=== PATIENT | male | born 1955 | race Two or more races ===

== ENCOUNTER 2024-08-14 07:52 | Emergency (ER) | payer MEDICARE, MEDICAID, SELFPAY ==
--- NOTE | 2024-08-14 07:56 | EKG_ITS ---
[facility] Test Date: 2024-08-14 Pat Name: LARRY BAE Department: Room: - Gender: Male Office Mover: : 1955 Requested By: Don Watson Order Number: [id number] Reading MD: Dno Watson Measurements Intervals [place] Rate: 73 P: 66 LA: 179 QRS: 38 QRSD: 98 T: 44 QT: 390 QTc: 432 Interpretive Statements SINUS RHYTHM LOW QRS VOLTAGE IN EXTREMITY LEADS [QRS DEFLECTION < 0.5 mV IN LIMB LEADS] Compared to ECG 06/10/2023 14:49:50 Low QRS voltage now present /store/S0/[id number].pdf
--- NOTE | 2024-08-14 07:56 | XR_ITS ---
Examination: CTA carotids with intravenous contrast CTA brain, head with intravenous contrast. 2-D sagittal, coronal reconstructions. 3-D reconstructions. Exam date and time: October 14, 2024 0818 hours INDICATIONS: Stroke alert, onset focal neurologic deficit today CTDI: vol (mGy) 27.3 DLP: (mGycm) 448 Technique: Multiple CTA axial brain, head carotid images post intravenous contrast injection 75 cc, Isovue-370. 2-D sagittal, coronal reconstructions. 3-D reconstructions, 3-D post processing including vascular maximum intensity projection images. Low dose protocols were performed. One or more of the following dose reduction techniques were used; automated exposure control, adjustment of the mA and/or KV according to patient size, use of iterative reconstruction technique. Findings: COPD with areas of airspace destruction in the right upper lobe Mild calcification carotid bifurcations but no significant common carotid carotid bifurcation or internal carotid artery stenoses Dominant left vertebral artery with no critical stenoses Large vessel occlusion distal M1 segment left middle cerebral artery with decreased filling of left middle cerebral artery trifurcation vessels IMPRESSION: No significant neck arterial stenoses Large vessel occlusion distal M1 segment left middle cerebral artery
--- NOTE | 2024-08-14 07:56 | XR_ITS ---
Examination: CT brain head without contrast. 2-D sagittal coronal reconstructions Date and time of exam:August 14, 2024 0801 hrs. Indications: Stroke alert, onset focal neurologic deficit this morning CTDI: vol (mGy):52.8 DLP: (mGycm):1123 Technique: Multiple CT axial sections of the brain have been obtained, 5 mm slice thickness. Contrast has not been administered. 2-D sagittal, coronal reconstructions have been obtained Low dose protocols were performed. One or more of the following dose reduction techniques were used; automated exposure control, adjustment of the mA and/or KV according to patient size, use of iterative reconstruction technique. Findings: No significant ventricular enlargement. There is continual patient motion on this study Old infarct left occipital lobe unchanged compared with September 14, 2023 Ventricles are not enlarged No gross hemorrhage, no gross mass effect Impression: Study is severely limited secondary to patient motion No gross hemorrhage No gross mass effect Recommend repeating this study
--- NOTE | 2024-08-14 07:59 | EDNOTE_ITS ---
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 Stroke alert was called. Per EMS patient woke up today and was altered, nursing staff at [facility] noticed his eyes were fixeted to the left and they called EMS. Patient is nonverbal, baseline is unknown. Last well known 7am. No other history is available. Related Data Home Medications ?Medication ?Instructions ?Recorded ?Confirmed donepezil 5 mg tablet 5 mg PO HS 09/15/23 09/15/23 amitriptyline 25 mg tablet 25 mg PO QDAY 09/16/2310/05 amlodipine 10 mg tablet 10 mg PO QDAY 09/16/2309/15 atorvastatin 80 mg tablet 80 mg PO QDAY 09/16/2309/15 lisinopril 5 mg tablet 5 mg PO QDAY 09/16/23 memantine 10 mg tablet 10 mg PO BID 09/16/23 tamsulosin 0.4 mg capsule 0.4 mg PO QDAY 09/16/2310/05 Previous Rx's ?Medication ?Instructions ?Recorded aspirin 81 mg tablet,delayed 81 mg PO QDAY 30 days #30 tabs 06/12/23 release Allergies Allergy/AdvReac Type Severity Reaction Status Date / Time No Known Allergies Allergy Verified 06/10/23 14:15 Review of Systems Review of Systems ROS Unobtainable: unobtainable due to mental status ED Exam Narrative Physical exam: Gen: Well-developed elderly male. HEENT: NCAT, PERRLA, eyes are deviated to the left, MMM, anicteric conjunctivae. CVS: normal S1 and S2. RRR. No M/R/G. Resp: decreased BS B/L. No rhonchi, rales, crackles or wheezing. Abd: soft, non-tender, non-distended. BS+ in all 4 quadrants. MSK: Good ROM in BUE & BLE. No edema or rash. Neuro: limited exam due to mental status. Does not follow commands or communicate. Course Course Course Narrative: STROKE ALERT called, teleneuro consulted. Given aspirin 300 mg WY and Keppra 1.5g IV per teleneuro recs. Head CT showed limited exam due to motion, no gross hemorrhage or mass effect. CTA showed LVO distal M1 segment left MCA. Initiated transfer for neurosurgical eval due to LVO. Patient was accepted to [facility]. Quality Measures Suspected type of Stroke: Acute Ischemic Last known well (date): 08/14/24 Last known well (time): 07:00 Tenecteplase given: Reason(s) TPA not given: Unable to determine eligibility (no per teleneuro) not given stroke Orders Category Date Time Status Bedside Blood Glucose NOW Care 08/14/24 07:56 Active Bedside COVID-19 Antigen Test NOW Care 08/14/24 09:51 Active COVID-19 Screening Questionnaire NOW Care 08/14/24 09:51 Completed Talent Acquisition Relationship Manager NOW Care 08/14/24 07:56 Active Continuous Pulse Oximetry NOW Care 08/14/24 07:56 Completed EKG (ED ONLY) *Do not use* NOW Care 08/14/24 07:56 Completed Vogt [Urinary Catheter] QS Care 08/14/24 10:10 Active Vogt to Stinnett Routine Care 08/14/24 09:52 Ordered In and Out Catheter NEEDED Care 08/14/24 07:56 Active Insert IV NOW Care 08/14/24 07:56 Active NIH Stroke Scale now Care 08/14/24 07:56 Active NPO NOW Care 08/14/24 07:56 Active Neuro Check ONCE Care 08/14/24 07:56 Active Nurse Swallow Screen x1 Care 08/14/24 07:56 Active Consult to Neurology / Tele-Neurology Routine Cons 08/14/24 07:56 Active Transfer to another facility [Transfer/Discharge] Stat Discharge 08/14/24 11:[address] angio stroke protocol Stat Exams 08/14/24 07:[address] stroke protocol Stat Exams 08/14/24 07:56 Completed EKG (ED Only) Stat Exams 08/14/24 07:56 Draft CBC Stat Lab 08/14/24 08:05 Completed Comprehensive Metabolic Panel Stat Lab 08/14/24 08:05 Completed Drug Screen,Urine Stat Lab 08/14/24 10:11 Completed Magnesium Stat Lab 08/14/24 08:05 Completed Partial Thromboplastin Time Stat Lab 08/14/24 08:05 Completed Prothrombin Time with INR Stat Lab 08/14/24 08:05 Completed Troponin I Stat Lab 08/14/24 08:05 Completed Urinalysis Stat Lab 08/14/24 10:13 Completed Urine Culture Stat Lab 08/14/24 10:11 Received Aspirin Supp Med 08/14/24 08:11 Discontinued 300 mg WY X1 ONE Ondansetron Inj [Zofran Inj] Med 08/14/24 07:56 Active 4 mg IV Q4HR PRN levETIRAcetam INJ [Keppra Inj] Med 08/14/24 08:11 Discontinued 1,500 mg IVP X1 ONE Oxygen Delivery NOW RT 08/14/24 07:56 Active Vital Signs Vital signs: Vital Signs Pulse Rate 78 08/14/24 08:24 Respiratory Rate 18 08/14/24 08:24 [facility] Patient data External records reviewed:: [facility] previous records and EMS form Clinical information provided by:: EMS Social determinants that could affect healthcare access:: none Patient has the following chronic illnesses:: 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 Medications Medications considered but not ordered:: Tenecteplase, heparin gtt Medication administrations:: Medication Administration History Ondansetron HCl (Ondansetron Inj 2 Mg/Ml Inj 2 Ml) 4 mg IV Q4HR PRN PRN Reason: NAUSEA OR VOMITING Stop: 09/13/24 07:55 Discontinued Medications Aspirin (Aspirin 300 Mg Supp) 300 mg WY X1 ONE Stop: 08/14/24 08:12 Last Admin: 08/14/24 09:05 Dose: 300 mg Documented By: BD Levetiracetam (Levetiracetam Inj 100 Mg/Ml Vial 5ml) 1,500 mg IVP X1 ONE Stop: 08/14/24 08:12 Last Admin: 08/14/24 09:07 Dose: 1,500 mg Documented By: BD Aspirin 300 mg WY, Keppra 1.5g IV. Consultations Consultation(s) initiated? (list below): Yes Consultation #1 (Physician, Specialty, Details): Teleneurology, CVA. Diagnosis Differential Diagnosis ED Complaint MDM: hemorrhagic stroke, ICH, seizure Most likely diagnosis given after review of the tests above:: Ischemic stroke Admission Indicated Admission indicated?: indicated Explain why admission is indicated or not indicated:: Patient needs higher level of care with neurosurgery. Admission Request Was there a request for admission?: No Disposition Plan Disposition Plan: Transfer Medical Decision Making Differential Diagnosis Differential Diagnosis: hemorrhagic stroke, ICH, seizure Lab Data 08/14/24 08:05 08/14/24 08:05 Labs: Lab Results 08/14/24 08/14/24 08/14/24 Range/Units 08:05 10:11 10:13 WBC 11.4 H (3.8-10.6) Thou/mm3 RBC 4.62 (4.50-5.90) Miln/mm3 Hgb 13.7 (13.5-16.0) g/dL Hct 42.3 (41.0-53.0) % MCV 92 (80-100) fL MCH 29.7 (25.0-35.0) pg MCHC 32.4 (31.0-37.0) g/dl RDW Std Deviation 55.2 H (35.1-43.9) fL Plt Count 219 (140-440) Thou/mm3 Neut % (Auto) 54 (37-80) % Lymph % (Auto) 35 (10-50) % Alexander % (Auto) 7 (0-12) % Eos % (Auto) 4 (0-10) % Baso % (Auto) 0 (0-2.5) % Neut # (Auto) 6.1 (1.8-7.7) Thou/mm3 Lymph # (Auto) 4.0 (1.0-4.8) Thou/mm3 Alexander # (Auto) 0.8 (0.0-0.8) Thou/mm3 Eos # (Auto) 0.4 (0.0-0.5) Thou/mm3 Baso # (Auto) 0.0 (0.0-0.2) Thou/mm3 Immature Gran # (Auto) 0.03 H (0.00-0.00) Thou/mm3 Absolute Nucleated RBC 0.00 (0.00-0.00) Thou/mm3 Immature Gran % 0 (0-0) % Nucleated RBC % 0 (0) /100 WBC PT 11.4 (9.0-12.2) Seconds INR 1.0 (0.9-1.3) APTT 29.4 (22.0-36.0) Seconds Sodium 142 (136-145) mMol/L Potassium 4.9 (3.4-5.1) mMol/L Chloride 112 H (98-107) mMol/L Carbon Dioxide 23.0 (20.0-31.0) mMol/L Anion Gap 7 (7-16) BUN 18 (9-23) mg/dL Creatinine 1.2 (0.6-1.3) mg/dL Estim Creat Clear Calc Not Performed. eGFR > 60 (60 - ) See Note BUN/Creatinine Ratio 15 (12-20) Ratio Glucose 85 (74-106) mg/dL Calculated Osmolality 284 (275-295) Calcium 9.5 (8.3-10.6) mg/dL Corrected Calcium 9.5 (8.5-10.1) mg/dL Magnesium 2.1 (1.6-2.6) mg/dL Total Bilirubin 0.9 (0.3-1.2) mg/dL AST 16 (0-34) U/L ALT 19 (10-49) U/L Alkaline Phosphatase 101 (46-116) U/L Troponin I < 0.020 (0.0-0.045) ng/mL Total Protein 7.1 (5.7-8.2) gm/dL Albumin 4.4 (3.4-4.8) gm/dL Globulin 2.7 (2.3-3.5) gm/dL Albumin/Globulin Ratio 1.6 (1.2-2.2) Ur Collection Type Clean Catch Urine Color Lt-Yellow (Lt Yel-Yel) Urine Clarity Clear (Clear/Hazy) Urine pH 6.0 (5.0-7.0) Ur Specific Stinnett 1.049 H (1.001-1.035) Urine Protein Negative (Neg - Trace) Urine Glucose (UA) Negative (Negative) Urine Ketones Negative (Negative) Urine Blood Negative (Negative) Urine Nitrite Negative (Negative) Urine Bilirubin Negative (Negative) Urine Urobilinogen (Auto) Negative (0.0-1.0) mg/dL Ur Leukocyte Esterase Negative (Negative) Urine RBC 3 (0-3) /hpf Urine WBC 1 (0-5) /hpf Ur Squamous Epith Cells 0 (0-5) /hpf Urine Bacteria None (None) Urine Opiates Screen Negative (Negative) Urine Fentanyl Screen Negative (Negative) Ur Barbiturates Screen Negative (Negative) U Amphetamin/Meth Scrn Negative (Negative) U Benzodiazepines Scrn Negative (Negative) U Cocaine Metab Screen Negative (Negative) U Marijuana (THC) Screen Negative (Negative) Discharge Plan Plan Patient Disposition: [facility] Pt Being Transferred to: Other-Specify in comment Service Needed for Transfer: Neurosurgery Disposition Comment: Needs neurosurgery eval due to LVO. Patient condition on transfer: Benefits outweigh risks Prescriptions/Referrals Prescriptions/Med Rec: No Action aspirin 81 mg Tablet,Delayed Release (Dr/Ec) 81 mg PO QDAY 30 Days Qty: 30 1RF donepezil 5 mg tablet 5 mg PO HS Patient Comments: TAKE 1 TABLET BY MOUTH EVERY DAY AT BEDTIME atorvastatin 80 mg tablet 80 mg PO QDAY Patient Comments: TAKE 1 TABLET BY MOUTH AT BEDTIME amitriptyline 25 mg tablet 25 mg PO QDAY Patient Comments: TAKE 1 TABLET BY MOUTH EVERY DAY AT BEDTIME tamsulosin 0.4 mg capsule 0.4 mg PO QDAY Patient Comments: TAKE 1 CAPSULE BY MOUTH WITH DINNER amlodipine 10 mg Tablet 10 mg PO QDAY lisinopril 5 mg Tablet 5 mg PO QDAY memantine 10 mg tablet 10 mg PO BID Patient Comments: TAKE 1 TABLET BY MOUTH TWICE DAILY Referrals: Nida Cooney MD [Primary Care Provider] - In 1 week Problem List Clinical Impression: Acute CVA (cerebrovascular accident) Patient/Caregiver Discharge Instructions Print Language: Setswana Stand Alone Forms: Sindy Award Info., Patient Portal Info Letter
--- NOTE | 2024-08-14 08:05 | PD.TNEURO ---
Tele Neuro Consultation Consultation Date 08/14/24 Consultation Narrative [facility] Tele[facility] Patient Name:???LARRY BAE Date of :???1955 Identification Number:??? Date of Service:???08/14/2024 07:49:38 Diagnosis:?G93.41 - Encephalopathy Metabolic ?R41.89 - Unresponsive Impression: ?altered mental status/unresponsiveness with intermittent left gaze deviation; possible acute ischemic stroke vs nonconvulsive seizure (in the setting of left temporal lobe encephalomalacia) +/- acute toxic or metabolic or infectious encephalopathy ? ?CTA pending ?load with aspirin 300 mg MD x1 as patient cannot swallow safely ?load with keppra 1.5 g IV x1 ?allow permissive HTN for first 24 hours then slowly and gradually goal normotension thereafter ?cqohx-petyauqvm-epqoejhfed workup ?admit for further workup and management ?MRI brain when able ?EEG to eval for asymmetry or interictal activity ?continue to monitor on telemetry ?echo ?labs for risk factor stratification (lipid panel, HbA1c, TSH with free T4) ?PT/OT/speech ? ?All questions were answered to the best of my ability. Discussed plan with ED team (including ED provider) who are all in agreement with plan. ? Sign Out: ? Discussed with Emergency Department Provider Metrics: Last Known Well: 08/14/2024 07:00:00 Dispatch Time: 08/14/2024 07:49:38 Arrival Time: 08/14/2024 07:52:00 Initial Response Time: 08/14/2024 07:51:17Symptoms: unresponsive. Initial patient interaction: 08/14/2024 08:03:56 NIHSS Assessment Completed: 08/14/2024 08:08:44Patient is not a candidate for Thrombolytic. Thrombolytic Medical Decision: 08/14/2024 08:09:44Patient was not deemed candidate for Thrombolytic because of following reasons: Care-team unable to determine eligibility. . Imaging was personally reviewed. CTH shows encephalomalacia in the left medial temporal lobe/occipital lobe as well as diffuse atrophy and small vessel ischemic disease but is negative for bleed or early ischemic changes. Primary Provider Notified of Diagnostic Impression and Management Plan on: 08/14/2024 08:10:14 History of Present Illness:Patient is a 69 year old Male. Patient was brought by EMS for symptoms of unresponsive. 69 yo man with a history of dementia, prior ischemic strokes (most recently in 05/2024) with residual right-sided deficits, hypertension, hyperlipidemia, alcohol use disorder, who presents to the ED via EMS with altered mental status/unresponsiveness. Symptoms noted at 0700 when he collapsed per report (unable to confirm with SNF). Ambulates with a walker at baseline. ? Past Medical History: ?Hypertension ?Hyperlipidemia ?Stroke unable to obtain due to:?? Patient Is Obtunded/ Comatose Medications: Anticoagulant use:??Unknown Antiplatelet use:?Yes?aspirin 81 mg Reviewed EMR for current medications Other Medications Pertinent To Assessment Include: atorvastatin ?amitriptyline ?lisinopril ?Flomax Allergies:? Reviewed Allergies Unable To Obtain Due To:?Patient Is Obtunded/ Comatose Social History: Unable To Obtain Due To Patient Status :?Patient Is Obtunded/ Comatose Family History: Family History Cannot Be Obtained Because:Patient Is Obtunded/ Comatose ROS :?ROS Cannot Be Obtained Because:? Patient Is Obtunded/ Comatose Past Surgical History: Past Surgical History Cannot Be Obtained Because: Patient Is Obtunded/ Comatose There Is No Surgical History Contributory To Today?s Visit ? Examination: BP(164/98),?Pulse(63),?Blood Glucose(84) 1A: Level of Consciousness - Movements to Pain?+ 2 1B: Ask Month and Age - Could Not Answer Either Question Correctly?+ 2 1C: Blink Eyes & Squeeze Hands - Performs 0 Tasks?+ 2 2: Test Horizontal Extraocular Movements - Forced Gaze Palsy: Cannot Be Overcome?+ 2 3: Test Visual Hernandes - Complete Hemianopia?+ 2 4: Test Facial Palsy (Use Grimace if Obtunded) - Normal symmetry?+ 0 5A: Test Left Arm Motor Drift - Drift, hits bed?+ 2 5B: Test Right Arm Motor Drift - No Effort Against [employer]?+ 3 6A: Test Left Leg Motor Drift - No Effort Against [employer]?+ 3 6B: Test Right Leg Motor Drift - No Effort Against [employer]?+ 3 7: Test Limb Ataxia (FNF/Heel-John) - Does Not Understand?+ 0 8: Test Sensation - Mild-Moderate Loss: Can Sense Being Touched?+ 1 9: Test Language/Aphasia - Mute/Global Aphasia: No Usable Speech/Auditory Comprehension?+ 3 10: Test Dysarthria - Mute/Anarthric?+ 2 11: Test Extinction/Inattention - No abnormality?+ 0 NIHSS Score:?27 NIHSS Free Text :?mute. does not follow commands. no blink to threat on the right. +blink to threat on the left. initially no gaze deviation with eyes midline. after CT head, he developed a left gaze deviation with head version to the left. Pre-Morbid Modified Santa Scale:3 Points = Moderate disability; requiring some help, but able to walk without assistance Spoke with :?Dr. Watson This consult was conducted in real time using interactive audio and video technology. Patient was informed of the technology being used for this visit and agreed to proceed. Patient located in hospital and provider located at home/office setting. Patient is being evaluated for possible acute neurologic impairment and high probability of imminent or life-threatening deterioration. I spent total of 36 minutes providing care to this patient, including time for face to face visit via telemedicine, review of medical records, imaging studies and discussion of findings with providers, the patient and/or family. Dr Cyril Roe [facility] For Inpatient follow-up with [facility] physician please call [facility] at . As we are not an outpatient service for any post hospital discharge needs please contact the hospital for assistance. If you have any questions for the [facility] physicians or need to reconsult for clinical or diagnostic changes please contact us via [facility] at .
[2024-08-14 08:24] VITALS: PULSE 78; RESP 100; RESP 18
[2024-08-14 08:28] LABS: Basophils % (Auto) 0 % (0-2.5); Eosinophils # (Auto) 0.4 Thou/mm3 (0.0-0.5); Eosinophils % (Auto) 4 % (0-10); Hematocrit 42.3 % (41.0-53.0); Hemoglobin 13.7 g/dL (13.5-16.0); Immature Granulocytes % (Auto) 0 % (0-0); Immature Granulocytes Auto 0.03 Thou/mm3 (0.00-0.00); Lymphocytes % (Auto) 35 % (10-50); Mean Corpuscular HGB Conc 32.4 g/dl (31.0-37.0); Mean Corpuscular Hemoglobin 29.7 pg (25.0-35.0); Mean Corpuscular Volume 92 fL (80-100); Monocytes # (Auto) 0.8 Thou/mm3 (0.0-0.8); Monocytes % (Auto) 7 % (0-12); Neutrophils # (Auto) 6.1 Thou/mm3 (1.8-7.7); Neutrophils % (Auto) 54 % (37-80); Nucleated Red Blood Cell % 0 /100 WBC (0); Platelet Count 219 Thou/mm3 (140-440); RDW Standard Deviation 55.2 fL (35.1-43.9); Red Blood Count 4.62 Miln/mm3 (4.50-5.90); White Blood Count 11.4 Thou/mm3 (3.8-10.6)
[2024-08-14 08:31] VITALS: PULSE 64; PULSE 69; RESP 18; O2SAT 98; BMI 21.1
[2024-08-14 08:32] VITALS: BP 125/84; PULSE 77; RESP 15; TEMP 36.4; O2SAT 98
--- NOTE | 2024-08-14 08:35 | PC.NURSE ---
PT DAUGHTERHELEN CALLED TO ASK ABOUT STATUS SHE SAID SHE THINKS HE HAD ANOTHER STROKE ADVISED THAT HE IS BACK FROM [place] AND WE ARE READY FOR THE REPORT. SHE STATED OK. SHE ASKED IF HE WILL BE IN ER FOR AWHILE ADVISED WE ARE WAITING FOR THE PROVIDER TO REVIEW AT THE MOMENT.
[2024-08-14 08:44] LABS: Partial Thromboplastin Time 29.4 Seconds (22.0-36.0); Prothrombin Time 11.4 Seconds (9.0-12.2)
[2024-08-14 08:50] LABS: Alanine Aminotransferase 19 U/L (10-49); Albumin, Serum 4.4 gm/dL (3.4-4.8); Albumin/Globulin Ratio 1.6 (1.2-2.2); Alkaline Phosphatase 101 U/L (46-116); Anion Gap 7 (7-16); Aspartate Amino Transferase 16 U/L (0-34); BUN/Creatinine Ratio 15 Ratio (12-20); Bilirubin,Total 0.9 mg/dL (0.3-1.2); Blood Urea Nitrogen 18 mg/dL (9-23); Calcium 9.5 mg/dL (8.3-10.6); Calcium (Corrected) 9.5 mg/dL (8.5-10.1); Chloride 112 mMol/L (98-107); Creatinine (Component) 1.2 mg/dL (0.6-1.3); Globulin 2.7 gm/dL (2.3-3.5); Glucose 85 mg/dL (74-106); Magnesium 2.1 mg/dL (1.6-2.6); Osmolality,Calculated 284 (275-295); Potassium 4.9 mMol/L (3.4-5.1); Sodium 142 mMol/L (136-145); Total Protein 7.1 gm/dL (5.7-8.2); Troponin I < 0.020 ng/mL (0.0-0.045); eGFR > 60 See Note
--- NOTE | 2024-08-14 08:54 | PC.NURSE ---
[facility] PT HAS HX; STROKE HTN, RIGHT SIDE DEFICIT, PT AMBULATES WITH WALKER. PER EMS GSC 11. UPON ASSESSING PT HE HAS A DEVIATION TO THE LEFT. PT IS AWAKE AND ALERT BUT UNABLE TO ANSWER QUESTIONS. STROKE ALERT WAS INITIATED IN ROUTE AT 0746.
[2024-08-14] MEDS: ASPIRIN 300 MG SUPP PR (09:05)
[2024-08-14] MEDS: levETIRAcetam INJ 100 MG/ML VIAL 5ML 1500 MG IVP (09:07)
[2024-08-14 10:00] VITALS: BP 111/69; PULSE 61; RESP 11; TEMP 37; O2SAT 97
--- NOTE | 2024-08-14 10:07 | PC.NURSE ---
OK PER PROVIDER TO D/C Q115 STEPHEN CHECKS
--- NOTE | 2024-08-14 10:08 | PC.NURSE ---
UNABLE TO DO COVID SCREENING PT IS NOT ABLE TO ANSWER QUESTIONS. BEDSIDE COVID COMPLETED
[2024-08-14 10:34] LABS: Collection Type, Urine Clean Catch; Squamous Epithelial Cell,Urine 0 /hpf (0-5)
[2024-08-14 10:45] LABS: Amphetamine/Methamp Scrn,U Negative (Negative); Barbiturate Screen,Urine Negative (Negative); Benzodiazepines Screen,Urine Negative (Negative); Benzoylecgonine Screen, Ur Negative (Negative); Fentanyl Screen,Urine Negative (Negative); Opiate Screen,Urine Negative (Negative); THC Screen,Urine Negative (Negative)
[2024-08-14 10:53] LABS: Bilirubin,Urine Negative (Negative); Blood,Urine Negative (Negative); Clarity,Urine Clear (Clear/Hazy); Color,Urine Lt-Yellow (Lt Yel-Yel); Glucose, Urine Negative (Negative); Ketones,Urine Negative (Negative); Leukocyte Esterase,Urine Negative (Negative); Nitrite,Urine Negative (Negative); Protein,Urine Negative (Neg - Trace); RBC,Urine 3 /hpf (0-3); Specific Gravity,Urine 1.049 (1.001-1.035); Urobilinogen,Urine Negative mg/dL (0.0-1.0); WBC,Urine 1 /hpf (0-5)
[2024-08-14 11:00] VITALS: BP 128/71; PULSE 67; RESP 11; TEMP 36.9; O2SAT 98
--- NOTE | 2024-08-14 11:16 | PC.NURSE ---
CT ANGIO SHOWING LVO AND PT'S HOB PLACED FLAT AT THIS TIME
--- NOTE | 2024-08-14 11:22 | PC.CC ---
Addendum entered by Mayelin Rodriguez RN 08/14/24 12:48: 1230- all paperwork given to Haul Driver Chester 1226-stat transfer initiated all paperwork signed, chart printed 1206- Lnadon from [facility] called and accepted patient to [facility] under Dr. Shrestha, report to be called to [phone] 1145-filled out all paperwork, called patients daughter Leida and got consent for transfer with second nurse Ivon Marcelino 1130- called for disk to be made Original Note: 1117- Spoke to Landon at [facility] to facilitate transfer to [facility], face sheet faxed, images pushed 1116-Made aware by Charge Nurse Citlalli that patient needs to be stat transferred for Large Vessel Occlusion of the distal M1 segment Left Middle Cerebral Artery
--- NOTE | 2024-08-14 11:45 | PC.NURSE ---
SHAR FROM [facility] GAVE REPORT WILL CALL BACK
--- NOTE | 2024-08-14 13:08 | PC.NURSE ---
SPOKE WITH LONNIE AT [facility] TO GIVE UPDATE OF PT
== END 2024-08-14 12:43 | disposition short-term general hospital (02) ==
PROVIDERS: Student in an Organized Health Care Education/Training Program; Emergency Provider Emergency Medicine; PCP Hospitalist
DX: I63.9 Cerebral infarction, unspecified (principal); I67.82 Cerebral ischemia; G93.89 Other specified disorders of brain; G93.41 Metabolic encephalopathy; R40.20 Unspecified coma; R29.727 NIHSS score 27; I69.344 Monoplegia of lower limb following cerebral infarction affecting left non-dominant side; I10 Essential (primary) hypertension; F10.10 Alcohol abuse, uncomplicated; E78.5 Hyperlipidemia, unspecified; F03.90 Unspecified dementia, unspecified severity, without behavioral disturbance, psychotic disturbance, mood disturbance, and anxiety; Z95.820 Peripheral vascular angioplasty status with implants and grafts
CPT/HCPCS: 51702; 36415; 70450; 70496; 70498; 80053; 80307; 81001; 83735; 84484; 85025; 85610; 85730; 87086; 87811; 93005; 96374; 99285; A4649; J1953; Q9967; A9270

== ENCOUNTER 2024-10-08 19:26 | Emergency (ER) | payer MEDICARE, MEDICAID, SELFPAY ==
[2024-10-08 19:34] VITALS: BMI 21.7
[2024-10-08 19:37] VITALS: BP 148/94; PULSE 75; RESP 16; TEMP 36.6; O2SAT 97
--- NOTE | 2024-10-08 20:03 | XR_ITS ---
Examination: Abdomen AP 2 views Technique: AP portable supine abdomen, 2 views Exam date and time: October 08, 2024 at 2034 hours INDICATIONS: Gastrostomy tube came out and was replaced FINDINGS: Opacification of the gastrostomy tube contrast in the stomach No abnormal extravasation of contrast IMPRESSION: Gastrostomy tube satisfactory position
--- NOTE | 2024-10-08 20:04 | PD.EDADULT ---
ED General RME/HPI General Chief complaint: General Adult/Misc Complain Stated complaint: GASTRIC TUBE CAME OUT Time Seen by Provider: 10/08/24 20:04 Arrival date/time: 10/08/24 19:26 CC: G-tube pulled out HPI patient presents to the ER via EMS who reports stable vital signs. The patient is aphasic secondary CVA, awake and tracking. Related Data Home Medications ?Medication ?Instructions ?Recorded ?Confirmed donepezil 5 mg tablet 5 mg PO HS 09/15/23 09/15/23 amitriptyline 25 mg tablet 25 mg PO QDAY 09/16/23 09/16/23 amlodipine 10 mg tablet 10 mg PO QDAY 09/16/23 09/16/23 atorvastatin 80 mg tablet 80 mg PO QDAY 09/16/23 09/16/23 lisinopril 5 mg tablet 5 mg PO QDAY 09/16/23 09/16/23 memantine 10 mg tablet 10 mg PO BID 09/16/23 09/16/23 tamsulosin 0.4 mg capsule 0.4 mg PO QDAY 09/16/23 09/16/23 Previous Rx's ?Medication ?Instructions ?Recorded aspirin 81 mg tablet,delayed 81 mg PO QDAY 30 days #30 tabs 06/12/23 release Allergies Allergy/AdvReac Type Severity Reaction Status Date / Time No Known Allergies Allergy Verified 10/08/24 19:28 Review of Systems Review of Systems ROS Unobtainable: unobtainable due to mental status Past Medical History Past Medical History NEUROLOGIC: Positive Neurological Disorders, Cerebrovascular Accident, Transient Ischemic Attacks (TIA) and Dementia CARDIAC: Positive Cardiac Disorders, Peripheral Vascular Disease, Hypercholesterolemia and Hypertension; Negative Congestive Heart Failure RESPIRATORY: Negative Chronic Obstructive Pulmonary Disease (COPD) GASTROINTESTINAL: Positive Gastroesophageal Reflux Disease; Negative Gastrointestinal Disorders GENITOURINARY: Negative Genitourinary Disorders or Renal Disease MUSCULOSKELETAL: Negative Musculoskeletal Disorders ENDOCRINE: Negative Endocrine Disorders, Diabetes Mellitus Type 1 or Diabetes Mellitus Type 2 HEMATOLOGIC: Negative Blood Disorders PSYCHO/SOCIAL: Positive Psychiatric Problems OTHER HISTORY: Positive Hospitalization and Falls; Negative Autoimmune Disease, Down Syndrome, Developmental Delay, Shingles, Anesthesia Reactions, MRSA, VRSA, Vancomycin-Resistant Enterococci, Clostridium Difficile or Cancer Family History FAMILY HISTORY: Negative Family Psychiatric Problems, Family Respiratory Disorders, Family Cardiac Disorders, Family Gastrointestinal Problems, Family Cancer, Family Surgery or Family Anesthesia Reaction Surgical History SURGICAL: Negative Cardiac Surgery, Endocrine Surgery, Thyroidectomy, Ear Surgery, Abdominal Surgery, Nephrectomy, Joint Replacement, Neurologic Surgery, Brain Shunt, Mastectomy or Vasectomy Social History SMOKING STATUS: Unknown if ever smoked SECOND HAND EXPOSURE: No ED Exam Narrative Physical exam: [General: Appears not in any acute distress Head normocephalic HEENT: Eyes pupils are PERRLA EOMs are intact tracking, all other subsystems of HEENT are within acceptable limits Neck is supple Chest equal chest rise Respiratory: Clear to auscultation no wheezes crackles or rubs CV: Rate rhythm is regular no murmurs rubs or clicks Abdomen flat, soft, central superior stoma oozing a small amount of blood. Skin: Abdominal G-tube stoma somewhat bloody no surrounding erythema or edema otherwise skin is intact no petechiae rash induration ulceration or crepitus Extremities: Left arm grossly retracted secondary to CVA. Neuro: Awake alert, tracking with eyes Course Quality Measures none Orders Category Date Time Status XR abdomen 1V Stat Exams 10/08/24 20:03 Completed Vital Signs Vital signs: Vital Signs Temperature 97.9 F 10/08/24 19:37 Pulse Rate 75 10/08/24 19:37 Respiratory Rate 16 10/08/24 19:37 Blood Pressure 148/94 H 10/08/24 19:37 Pulse Oximetry (%) 97 10/08/24 19:37 Oxygen Delivery Method Room Air 10/08/24 19:37 Procedures -ED Procedure Comment 16. Silicone Vogt catheter placed in the stoma without complication. Placement confirmed via Gastrografin abdominal x-ray. Discharge Plan Plan Patient Disposition: HOME (Self Care) Patient condition on transfer: Stable Prescriptions/Referrals Prescriptions/Med Rec: No Action aspirin 81 mg Tablet,Delayed Release (Dr/Ec) 81 mg PO QDAY 30 Days Qty: 30 1RF donepezil 5 mg tablet 5 mg PO HS Patient Comments: TAKE 1 TABLET BY MOUTH EVERY DAY AT BEDTIME atorvastatin 80 mg tablet 80 mg PO QDAY Patient Comments: TAKE 1 TABLET BY MOUTH AT BEDTIME amitriptyline 25 mg tablet 25 mg PO QDAY Patient Comments: TAKE 1 TABLET BY MOUTH EVERY DAY AT BEDTIME tamsulosin 0.4 mg capsule 0.4 mg PO QDAY Patient Comments: TAKE 1 CAPSULE BY MOUTH WITH DINNER amlodipine 10 mg Tablet 10 mg PO QDAY lisinopril 5 mg Tablet 5 mg PO QDAY memantine 10 mg tablet 10 mg PO BID Patient Comments: TAKE 1 TABLET BY MOUTH TWICE DAILY Referrals: No Primary/Family,Physician [Primary Care Provider] - In 1 week Problem List Clinical Impression: Gastrojejunostomy tube dislodgement Patient/Caregiver Discharge Instructions Print Language: Iraqi Stand Alone Forms: Sindy Award Info., Patient Portal Info Letter PA/INSURANCE LEGAL ASSISTANT Supervising Physician PA/INSURANCE LEGAL ASSISTANT Supervising Physician: Hector Terry ENP
[2024-10-08 22:35] VITALS: BP 129/83; PULSE 86; RESP 14; O2SAT 96
--- NOTE | 2024-10-08 23:08 | PC.NURSE ---
report called to hoang via telephone to Maribell ESTRADA
== END 2024-10-08 23:09 | disposition home or self-care (01) ==
PROVIDERS: Emergency Provider Emergency Medicine
DX: Z43.1 Encounter for attention to gastrostomy (principal); I69.320 Aphasia following cerebral infarction
CPT/HCPCS: 74018; 99283; Q9963

== ENCOUNTER 2024-11-15 18:01 | Emergency (ER) | payer MEDICARE, MEDICAID, SELFPAY ==
--- NOTE | 2024-11-15 18:28 | XR_ITS ---
Examination: AP chest single view Technique : AP portable semiupright chest single view Date and time: November 15, 2024, 1841 hours INDICATIONS: Lower chest pain today. FINDINGS: Early pneumonia right base obscuring detail right hemidiaphragm Normal heart size Ectatic thoracic aorta. Mild vascular congestion. Moderate osteopenia IMPRESSION: Early right basilar pneumonia
--- NOTE | 2024-11-15 18:28 | EKG_ITS ---
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
--- NOTE | 2024-11-15 18:53 | PD.EDABDPN ---
ED Abdominal Pain RME/HPI General Chief Complaint: Abdominal Pain Stated complaint: G TUBE REPLACEMENT Time seen by provider: 11/15/24 18:17 Arrival date/time: 11/15/24 18:01 Dr. Greenberg?s Main ED Evaluation: 69-year-old male with history of severe CVA and is gravely disabled brought in by EMS from [facility] with complaint of self removal of his PEG tube. Patient is nonverbal and is not able to communicate. History of hemiplegia and hemiparesis status post CVA, also with dementia, psychotic disturbance, hypertension, paroxysmal A-fib, hyperlipidemia, BPH and GERD. He is unable to contribute to the history Related Data Home Medications ?Medication ?Instructions ?Recorded ?Confirmed donepezil 5 mg tablet 5 mg PO HS 09/15/23 09/15/23 amitriptyline 25 mg tablet 25 mg PO QDAY 09/16/23 09/16/23 amlodipine 10 mg tablet 10 mg PO QDAY 09/16/23 09/16/23 atorvastatin 80 mg tablet 80 mg PO QDAY 09/16/23 09/16/23 lisinopril 5 mg tablet 5 mg PO QDAY 09/16/23 09/16/23 memantine 10 mg tablet 10 mg PO BID 09/16/23 09/16/23 tamsulosin 0.4 mg capsule 0.4 mg PO QDAY 09/16/23 09/16/23 Previous Rx's ?Medication ?Instructions ?Recorded aspirin 81 mg tablet,delayed 81 mg PO QDAY 30 days #30 tabs 06/12/23 release Allergies Allergy/AdvReac Type Severity Reaction Status Date / Time No Known Allergies Allergy Verified 10/08/24 19:28 Review of Systems Review of Systems Systems Reviewed: All systems reviewed, normal except as documented Past Medical History Past Medical History NEUROLOGIC: Positive Neurological Disorders, Cerebrovascular Accident, Transient Ischemic Attacks (TIA) and Dementia CARDIAC: Positive Cardiac Disorders, Peripheral Vascular Disease, Hypercholesterolemia and Hypertension; Negative Congestive Heart Failure RESPIRATORY: Negative Chronic Obstructive Pulmonary Disease (COPD) GASTROINTESTINAL: Positive Gastroesophageal Reflux Disease; Negative Gastrointestinal Disorders GENITOURINARY: Negative Genitourinary Disorders or Renal Disease MUSCULOSKELETAL: Negative Musculoskeletal Disorders ENDOCRINE: Negative Endocrine Disorders, Diabetes Mellitus Type 1 or Diabetes Mellitus Type 2 HEMATOLOGIC: Negative Blood Disorders PSYCHO/SOCIAL: Positive Psychiatric Problems OTHER HISTORY: Positive Hospitalization and Falls; Negative Autoimmune Disease, Down Syndrome, Developmental Delay, Shingles, Anesthesia Reactions, MRSA, VRSA, Vancomycin-Resistant Enterococci, Clostridium Difficile or Cancer Family History FAMILY HISTORY: Negative Family Psychiatric Problems, Family Respiratory Disorders, Family Cardiac Disorders, Family Gastrointestinal Problems, Family Cancer, Family Surgery or Family Anesthesia Reaction Surgical History SURGICAL: Negative Cardiac Surgery, Endocrine Surgery, Thyroidectomy, Ear Surgery, Abdominal Surgery, Nephrectomy, Joint Replacement, Neurologic Surgery, Brain Shunt, Mastectomy or Vasectomy Social History SMOKING STATUS: Unknown if ever smoked SECOND HAND EXPOSURE: No ED Exam Narrative Physical exam: GENERAL APPEARANCE: awake, nonverbal at baseline, no acute distress VITALS: All vitals were reviewed and the pulse ox is 98% on room air, which is normal according to my interpretation. HEENT: Normocephalic, atraumatic; pupils equal, round, reactive to light; EOMI; mucous membranes pink, moist; oropharynx clear NECK: Supple LUNGS: CTABL; no wheezes, no rales, no rhonchi HEART: Regular rate, regular rhythm; normal S1, S2; no murmurs ABDOMEN: non distended; normal BS; soft, no tenderness, no guarding, no rebound; G-tube stoma without any surrounding erythema or swelling BACK: no CVA tenderness EXTREMITIES: atraumatic; no edema NEUROLOGIC: awake; nonverbal; right-sided hemiplegia and hemiparesis PSYCHIATRIC: appropriate mood and affect SKIN: warm, dry, normal color; no rashes Course Quality Measures none Orders Category Date Time Status Rubber 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 Machine Operator STAT Care 11/15/24 18:28 Active Continuous Pulse Oximetry STAT Care 11/15/24 18:28 Completed EKG (ED ONLY) *Do not use* NOW Care 11/15/24 18:28 Completed NPO STAT Care 11/15/24 18:28 Active EKG (ED Only) Stat Exams 11/15/24 18:28 Draft XR abdomen 1V Stat Exams 11/15/24 20:05 Completed XR chest 1V portable Stat Exams 11/15/24 18:28 Completed CBC Stat Lab 11/15/24 18:35 Completed Comprehensive Metabolic Panel Stat Lab 11/15/24 18:35 Completed Lipase Stat Lab 11/15/24 18:35 Completed Magnesium Stat Lab 11/15/24 18:35 Completed Partial Thromboplastin Time Stat Lab 11/15/24 18:35 Completed Prothrombin Time with INR Stat Lab 11/15/24 18:35 Completed Vital Signs Vital signs: Vital Signs Temperature 98.6 F 11/15/24 19:00 Pulse Rate 58 L 11/15/24 19:00 Respiratory Rate 14 11/15/24 19:00 Blood Pressure 129/74 11/15/24 19:00 Pulse Oximetry (%) 98 11/15/24 19:00 Oxygen Delivery Method Room Air 11/15/24 19:00 Procedures -ED Feeding Tube Replacement Type of Tube: gastrostomy Insertion Site Prior to Procedure: clean Tube Used for Reinsertion: Vogt Guamanian Tube Size (F): 16 Balloon size (mL): 10 Verification of Placement: gastrografin injection Tube Secured by: tape/dressing Patient Tolerated Procedure: well and no complications Abdominal Pain MDM MDM Narrative MDM Narrative:: EKG (18: 53) sinus bradycardia at 58 with a normal axis, no ectopy and no signs of acute ischemia. Will replace the PEG tube with a Vogt catheter. See procedure note. Abdominal x-ray shows Vogt catheter in good position. Patient is stable to be discharged back to the SNF. At 2317, code star was called overhead. Patient slid off the edge of the bed onto the ground. Patient does not have any active bleeding, contusions, ecchymosis, tenderness or deformities. Patient is stable to be discharged to the SNF. Patient data External records reviewed:: [facility] previous records (Per chart review, patient was seen here on 10/08/24 for G-tube dislodgement.) Clinical information provided by:: patient Social determinants that could affect healthcare access:: housing (SNF resident) Patient has the following chronic illnesses:: CVA with residual hemiplegia and hemiparesis, dementia, psychotic disturbance, HTN, paroxysmal A-fib, hyperlipidemia, BPH, GERD How is presenting disease/condition affected by chronic disease/condition?: uneffected by Evaluation data The following diagnostics were reviewed and interpreted by me:: lab results, radiology exam(s) and EKG tracing(s) Lab and/or radiology exams considered but not ordered:: none Interpretation Summary: CBC normal, PT/INR/PTT normal, CMP normal. Abdominal x-ray shows Vogt catheter in place, opacification of the stomach and proximal small bowel, heavy stool load, no fractures, according to my interpretation. -------- [facility] Report Signed Patient: LARRY BAE. Record#: [id number] Birthdate: 1955 Age/Sex: 69 / M Location: [facility] Attending Dr: Ordering Physician: Tee Greenberg MD Date of Service: 11/15/24 Procedure(s): XR chest 1V portable Accession Number(s): [id number] cc: Filemon Munroe MD; NO PRIMARY/FAMILY,PHYSICIAN; Tee Greenberg MD~ Examination: AP chest single view Technique : AP portable semiupright chest single view Date and time: November 15, 2024, 1841 hours INDICATIONS: Lower chest pain today. FINDINGS: Early pneumonia right base obscuring detail right hemidiaphragm Normal heart size Ectatic thoracic aorta. Mild vascular congestion. Moderate osteopenia IMPRESSION: Early right basilar pneumonia Dictated By: Filemon Munroe MD Signed By: <Electronically signed by Filemon Munroe MD in OV> 11/15/24 191 Medications / Prescriptions Medications or Prescriptions considered but not ordered:: none Medication administrations:: none Consultations Consultation(s) initiated? (list below): No Diagnosis Differential diagnosis abdominal pain: other (G-tube dislodgement, G-tube malfunction, G-tube blockage) Most likely diagnosis given after review of the tests above:: see clinical impression below Admission Indicated Admission indicated?: not indicated Admission Request Was there a request for admission?: No Disposition Plan Disposition Plan: Discharge Discharge Attestation Discharge Attestation: The patient and all family members were given an opportunity to ask questions and understood the discharge instructions. Discharge instructions specifically effects, indications for sooner follow up or return to the emergency department, and the expected course of current diagnosis. Patient condition: Stable Discharge Plan Plan Patient Disposition: Xfer Skilled [facility] ([facility]NF) Discharge Disposition comment: Stable for discharge back to the SNF Patient condition on transfer: Stable Prescriptions/Referrals Prescriptions/Med Rec: No Action aspirin 81 mg Tablet,Delayed Release (Dr/Ec) 81 mg PO QDAY 30 Days Qty: 30 1RF donepezil 5 mg tablet 5 mg PO HS Patient Comments: TAKE 1 TABLET BY MOUTH EVERY DAY AT BEDTIME atorvastatin 80 mg tablet 80 mg PO QDAY Patient Comments: TAKE 1 TABLET BY MOUTH AT BEDTIME amitriptyline 25 mg tablet 25 mg PO QDAY Patient Comments: TAKE 1 TABLET BY MOUTH EVERY DAY AT BEDTIME tamsulosin 0.4 mg capsule 0.4 mg PO QDAY Patient Comments: TAKE 1 CAPSULE BY MOUTH WITH DINNER amlodipine 10 mg Tablet 10 mg PO QDAY lisinopril 5 mg Tablet 5 mg PO QDAY memantine 10 mg tablet 10 mg PO BID Patient Comments: TAKE 1 TABLET BY MOUTH TWICE DAILY Referrals: [facility] [Provider Group] - In 1 week Problem List Clinical Impression: Complication of feeding tube Patient/Caregiver Discharge Instructions Discharge Activity: activity as tolerated Diet Instructions: As per usual Education Materials: ED Feeding Tube Replacement Additional Instructions: Please return to the emergency department if you have any worsening or any further medical problems and we will help you. Otherwise you should follow-up with your primary care doctor or in the [facility] within the next several days. Print Language: Bangladeshi Stand Alone Forms: Sindy Award Info., Patient Portal Info Letter
[2024-11-15 19:00] VITALS: BP 129/74; PULSE 58; RESP 14; TEMP 37; O2SAT 98
[2024-11-15 19:03] LABS: Alanine Aminotransferase 30 U/L (10-49); Albumin, Serum 3.7 gm/dL (3.4-4.8); Albumin/Globulin Ratio 1.5 (1.2-2.2); Alkaline Phosphatase 83 U/L (46-116); Anion Gap 10 (7-16); Aspartate Amino Transferase 19 U/L (0-34); BUN/Creatinine Ratio 24 Ratio (12-20); Bilirubin,Total 0.5 mg/dL (0.3-1.2); Blood Urea Nitrogen 22 mg/dL (9-23); Calcium 8.4 mg/dL (8.3-10.6); Calcium (Corrected) 8.6 mg/dL (8.5-10.1); Carbon Dioxide 25.1 mMol/L (20.0-31.0); Chloride 101 mMol/L (98-107); Creatinine (Component) 0.9 mg/dL (0.6-1.3); Globulin 2.5 gm/dL (2.3-3.5); Glucose 89 mg/dL (74-106); Lipase 58 U/L (12-53); Osmolality,Calculated 274 (275-295); Sodium 136 mMol/L (136-145); Total Protein 6.2 gm/dL (5.7-8.2); eGFR > 60 See Note
[2024-11-15 19:04] LABS: Basophils % (Auto) 0 % (0-2.5); Eosinophils # (Auto) 0.5 Thou/mm3 (0.0-0.5); Eosinophils % (Auto) 7 % (0-10); Hematocrit 36.1 % (41.0-53.0); Hemoglobin 12.2 g/dL (13.5-16.0); Immature Granulocytes % (Auto) 0 % (0-0); Immature Granulocytes Auto 0.03 Thou/mm3 (0.00-0.00); Lymphocytes # (Auto) 2.1 Thou/mm3 (1.0-4.8); Lymphocytes % (Auto) 26 % (10-50); Mean Corpuscular HGB Conc 33.8 g/dl (31.0-37.0); Mean Corpuscular Hemoglobin 29.2 pg (25.0-35.0); Mean Corpuscular Volume 86 fL (80-100); Monocytes # (Auto) 0.7 Thou/mm3 (0.0-0.8); Monocytes % (Auto) 9 % (0-12); Neutrophils # (Auto) 4.6 Thou/mm3 (1.8-7.7); Neutrophils % (Auto) 57 % (37-80); Nucleated Red Blood Cell % 0 /100 WBC (0); Platelet Count 299 Thou/mm3 (140-440); RDW Standard Deviation 47.8 fL (35.1-43.9); Red Blood Count 4.18 Miln/mm3 (4.50-5.90)
[2024-11-15 19:05] VITALS: PULSE 57
[2024-11-15 19:10] LABS: Prothrombin Time 11.1 Seconds (9.0-12.2)
[2024-11-15 19:14] VITALS: BMI 21.1
--- NOTE | 2024-11-15 19:15 | PC.NURSE ---
BIA FROM [facility] FOR PULLING OUT PEG TUBE. HX OF PULLING OUT PEG TUBE AND COMING TO ER.
--- NOTE | 2024-11-15 20:05 | XR_ITS ---
Examination: Abdomen AP single view Technique: AP portable supine abdomen, single view Exam date and time: November 15, 2024, 2042 hours INDICATIONS: Gastrostomy tube replacement FINDINGS: Contrast opacifies the stomach and duodenum, no abnormal extravasation of contrast noted IMPRESSION: Gastrostomy tube in the stomach satisfactory position
[2024-11-15 21:00] VITALS: BP 124/78; PULSE 63; RESP 16; TEMP 36.9; O2SAT 98
--- NOTE | 2024-11-15 21:20 | PC.NURSE ---
attempted to call hoang at [phone] x2 no answer to give hand off voicemail says democrat not answering try later
--- NOTE | 2024-11-15 23:10 | PC.NURSE ---
pt was found on floor facing south on stomach pt slid out of bed, bed rails up time 2, pt in room 12 stated they did not hear a fall but did notice him on ground looking under curtain and came to get nurse. pt was examined not contusions noted and dr. billingsley examined pt after being found
== END 2024-11-15 23:32 | disposition skilled nursing facility (03) ==
PROVIDERS: Emergency Provider Emergency Medicine
DX: Z43.1 Encounter for attention to gastrostomy (principal); E78.5 Hyperlipidemia, unspecified; N40.0 Benign prostatic hyperplasia without lower urinary tract symptoms; I69.351 Hemiplegia and hemiparesis following cerebral infarction affecting right dominant side; I48.0 Paroxysmal atrial fibrillation; I10 Essential (primary) hypertension; J18.9 Pneumonia, unspecified organism; R00.1 Bradycardia, unspecified
CPT/HCPCS: 43762; 36415; 71045; 74018; 80053; 81001; 83690; 83735; 85025; 85610; 85730; 93005; 99283

== ENCOUNTER 2024-12-05 21:58 | Inpatient (IN) | payer MEDICARE, MEDICAID, SELFPAY ==
[2024-12-05] VITALS (7 sets, daily range): BP systolic 129–157; BP diastolic 75–89; PULSE 76–120; RESP 17–18; TEMP 37.2–38.4; O2SAT 94–97; BMI 19.9
[2024-12-05 22:48] LABS: Lactate (Lactic Acid) 1.4 mMol/L (0.4-2.0)
[2024-12-05 22:49] LABS: Basophils % (Auto) 0 % (0-2.5); Eosinophils # (Auto) 0.1 Thou/mm3 (0.0-0.5); Eosinophils % (Auto) 1 % (0-10); Hematocrit 36.5 % (41.0-53.0); Hemoglobin 13.2 g/dL (13.5-16.0); Immature Granulocytes % (Auto) 0 % (0-0); Immature Granulocytes Auto 0.09 Thou/mm3 (0.00-0.00); Lymphocytes # (Auto) 1.1 Thou/mm3 (1.0-4.8); Lymphocytes % (Auto) 5 % (10-50); Mean Corpuscular HGB Conc 36.2 g/dl (31.0-37.0); Mean Corpuscular Hemoglobin 28.9 pg (25.0-35.0); Mean Corpuscular Volume 80 fL (80-100); Monocytes # (Auto) 1.7 Thou/mm3 (0.0-0.8); Monocytes % (Auto) 8 % (0-12); Neutrophils # (Auto) 17.5 Thou/mm3 (1.8-7.7); Neutrophils % (Auto) 85 % (37-80); Nucleated Red Blood Cell % 0 /100 WBC (0); Platelet Count 337 Thou/mm3 (140-440); RDW Standard Deviation 43.2 fL (35.1-43.9); Red Blood Count 4.56 Miln/mm3 (4.50-5.90); White Blood Count 20.6 Thou/mm3 (3.8-10.6)
[2024-12-05 23:04] LABS: Collection Type, Urine Catheter
[2024-12-05 23:04] LABS: Partial Thromboplastin Time 31.5 Seconds (22.0-36.0)
[2024-12-05 23:09] LABS: Alanine Aminotransferase 43 U/L (10-49); Albumin, Serum 4.3 gm/dL (3.4-4.8); Albumin/Globulin Ratio 1.4 (1.2-2.2); Alkaline Phosphatase 110 U/L (46-116); Anion Gap 9 (7-16); Aspartate Amino Transferase 25 U/L (0-34); BUN/Creatinine Ratio 21 Ratio (12-20); Blood Urea Nitrogen 19 mg/dL (9-23); Calcium 9.3 mg/dL (8.3-10.6); Calcium (Corrected) 9.3 mg/dL (8.5-10.1); Carbon Dioxide 26.2 mMol/L (20.0-31.0); Chloride 94 mMol/L (98-107); Creatinine (Component) 0.9 mg/dL (0.6-1.3); Estimated Creatinine Clearance 67.1 mL/min (>60); Glucose 112 mg/dL (74-106); Osmolality,Calculated 262 (275-295); Potassium 4.3 mMol/L (3.4-5.1); Sodium 129 mMol/L (136-145); Total Protein 7.3 gm/dL (5.7-8.2); eGFR > 60 See Note
[2024-12-05 23:18] LABS: Amorphous Crystals,Urine Present (Absent); Bilirubin,Urine Negative (Negative); Blood,Urine Negative (Negative); Clarity,Urine Turbid (Clear/Hazy); Color,Urine Yellow (Lt Yel-Yel); Culture Indicated,Urine Not Indicated; Glucose, Urine Negative (Negative); Hyaline Casts,Urine < 1 /hpf (0-1); Ketones,Urine Negative (Negative); Leukocyte Esterase,Urine Negative (Negative); Nitrite,Urine Negative (Negative); PH,Urine 7.5 (5.0-7.0); Protein,Urine Trace (Neg - Trace); RBC,Urine 23 /hpf (0-3); Specific Gravity,Urine 1.017 (1.001-1.035); Squamous Epithelial Cell,Urine 1 /hpf (0-5); Urobilinogen,Urine Negative mg/dL (0.0-1.0); WBC,Urine 2 /hpf (0-5)
[2024-12-06] VITALS (40 sets, daily range): BP systolic 71–149; BP diastolic 45–87; PULSE 83–167; RESP 10–98; TEMP 36.3–39.2; O2SAT 1–100; BMI 19.5
--- NOTE | 2024-12-06 01:07 | XR_ITS ---
Examination: AP chest single view TECHNIQUE: AP portable semiupright chest single view Date and time: December 06, 2024 0137 hours INDICATIONS: Vomiting blood today. FINDINGS: Normal heart size No aspiration pneumonia The osseous structures are intact IMPRESSION: Negative for aspiration pneumonia
--- NOTE | 2024-12-06 01:08 | PD.EDGIBLD ---
ED GI Bleed RME/HPI General Chief complaint: GI Bleed Stated complaint: THROWING UP BLODD Time Seen by Provider: 12/05/24 22:21 Arrival date/time: 12/05/24 21:58 RME / HPI RME / HPI Narrative: DR SCHNEIDER MAIN ED EVALUATION: 69 y/o non-verbal male with Hx of TIA, CVA, Hypertension, and Gastroesophageal Reflux Disease BIBA from [facility] presents c/o coffee ground emesis x 1 approximately 10 minutes [employer] to ED. Earlier today, patient vomitied x 1, but it was his tube feeding. No other concerns or complaints expressed at this time. Related Data Home Medications ?Medication ?Instructions ?Recorded ?Confirmed donepezil 5 mg tablet 5 mg PO HS 09/15/23 09/15/23 amitriptyline 25 mg tablet 25 mg PO QDAY 09/16/23 09/16/23 amlodipine 10 mg tablet 10 mg PO QDAY 09/16/23 09/16/23 atorvastatin 80 mg tablet 80 mg PO QDAY 09/16/23 09/16/23 lisinopril 5 mg tablet 5 mg PO QDAY 09/16/23 09/16/23 memantine 10 mg tablet 10 mg PO BID 09/16/23 09/16/23 tamsulosin 0.4 mg capsule 0.4 mg PO QDAY 09/16/23 09/16/23 Previous Rx's ?Medication ?Instructions ?Recorded aspirin 81 mg tablet,delayed 81 mg PO QDAY 30 days #30 tabs 06/12/23 release Allergies Allergy/AdvReac Type Severity Reaction Status Date / Time No Known Allergies Allergy Verified 10/08/24 19:28 Review of Systems Review of Systems ROS Unobtainable: other (Non-verbal) Past Medical History Past Medical History NEUROLOGIC: Positive Neurological Disorders, Cerebrovascular Accident, Transient Ischemic Attacks (TIA) and Dementia CARDIAC: Positive Cardiac Disorders, Peripheral Vascular Disease, Hypercholesterolemia and Hypertension GASTROINTESTINAL: Positive Gastroesophageal Reflux Disease PSYCHO/SOCIAL: Positive Psychiatric Problems OTHER HISTORY: Positive Hospitalization and Falls ED Exam Narrative Physical exam: GENERAL APPEARANCE: alert and oriented x 4, well-developed, well-nourished, no acute distress VITALS: All vitals were reviewed and the pulse ox is 97% on room air, which is normal according to my interpretation. HEENT: Normocephalic, atraumatic; pupils equal, round, reactive to light; EOMI; mucous membranes pink, moist; oropharynx clear NECK: Supple LUNGS: CTABL; no wheezes, no rales, no rhonchi HEART: Regular rate, regular rhythm; normal S1, S2; no murmurs ABDOMEN: normal BS; soft, no tenderness, no guarding, no rebound; no masses, no organomegaly, no hernia ; Patient was lifting his head so abdominal muscle were taught, however we couldn't get patient to relax, but he didn't seem tender or abdomen distended BACK: no CVA tenderness EXTREMITIES: atraumatic; no edema NEUROLOGIC: awake; alert and oriented x4; cranial nerves II-XII grossly intact; no focal sensory or motor deficits PSYCHIATRIC: appropriate mood and affect SKIN: warm, dry, normal color; no rashes Course Quality Measures Blood cultures ordered: yes Antibiotic ordered: Yes Pertinent labs: 12/05/24 12/06/24 22:22 01:28 Lactic Acid 1.4 mMol/L 1.1 mMol/L (0.4-2.0) (0.4-2.0) Procalcitonin 0.11 ng/ml (0.0-0.49) sepsis and none Orders Category Date Time Status Admit to Inpatient Status Routine Admission 12/06/24 06:03 Active Patient Condition Routine Admission 12/06/24 06:03 Ordered Aspiration precautions NOW Care 12/06/24 06:[address] Screening NOW Care 12/06/24 01:10 Active Intake and Output QSHIFT Care 12/06/24 06:15 Ordered Miscellaneous Nursing Order NOW Care 12/06/24 06:03 Active NPO NOW Care 12/06/24 06:04 Active Notify provider NEEDED Care 12/06/24 06:03 Active Sequential Compression Device QSHIFT Care 12/06/24 06:03 Active Consult to Gastroenterology Routine Cons 12/06/24 06:06 Ordered Referral Registered Dietitian Routine Cons 12/06/24 06:08 Active Diet NPO (NOW) Diet 12/06/24 06:[address] abd pel w con SEPSIS ABBIE Stat Exams 12/06/24 01:10 Taken XR abdomen series w chest 1V Stat Exams 12/06/24 01:07 Taken Blood Culture (Lab) Stat Lab 12/05/24 22:22 Received CBC AM DRAW Lab 12/07/24 05:00 Ordered CBC AM DRAW Lab 12/08/24 05:00 Ordered CBC AM DRAW Lab 12/09/24 05:00 Ordered CBC Stat Lab 12/05/24 22:22 Completed CMP [Comprehensive Metabolic Panel] Stat Lab 12/05/24 22:22 Completed Comprehensive Metabolic Panel AM DRAW Lab 12/07/24 05:00 Ordered Comprehensive Metabolic Panel AM DRAW Lab 12/08/24 05:00 Ordered Comprehensive Metabolic Panel AM DRAW Lab 12/09/24 05:00 Ordered Lactate (Lactic Acid) Stat Lab 12/06/24 01:28 Completed Lactic Acid [Lactate (Lactic Acid)] Stat Lab 12/05/24 22:22 Completed Lipid Panel AM DRAW Lab 12/07/24 05:00 Ordered Magnesium AM DRAW Lab 12/07/24 05:00 Ordered Magnesium AM DRAW Lab 12/08/24 05:00 Ordered Magnesium AM DRAW Lab 12/09/24 05:00 Ordered PTT [Partial Thromboplastin Time] Stat Lab 12/05/24 22:22 Completed Phosphorous AM DRAW Lab 12/07/24 05:00 Ordered Phosphorous AM DRAW Lab 12/08/24 05:00 Ordered Phosphorous AM DRAW Lab 12/09/24 05:00 Ordered Procalcitonin Stat Lab 12/05/24 22:22 Completed UA, C/S IF [Urinalysis, C/S if Indicated] Stat Lab 12/05/24 22:53 Completed Urine Culture Routine Lab 12/06/24 06:07 Ordered Acetaminophen Ivpb [Ofirmev Inj] Med 12/06/24 02:03 Discontinued 1,000 mg in 100 ml IV NOW Acetaminophen Ivpb [Ofirmev Inj] Med 12/06/24 01:45 Discontinued 1,000 mg in 100 ml IV Q6HR Acetaminophen Tab [Tylenol Tab] Med 12/06/24 06:03 Ordered 650 mg PO Q6H PRN HYDROcodone*/APAP 5/325 [Roundup 5/325] Med 12/06/24 06:03 Ordered 1 tab PO Q4HR PRN Ondansetron Inj [Zofran Inj] Med 12/06/24 06:03 Ordered 4 mg IVP Q6H PRN Pantoprazole Inj [Protonix Inj] Med 12/06/24 09:00 Ordered 40 mg IVP BID Pantoprazole Inj [Protonix Inj] Med 12/06/24 01:22 Discontinued 80 mg IVP X1 ONE Pantoprazole/Ns 80Mg IV Premix [Protonix/NS 80mg IV Med 12/06/24 01:23 Active Premix] 80 mg in 100 ml IV X1 Piper/Tazo 3.375 gm Premix [Zosyn] Med 12/06/24 02:55 Discontinued 3.375 gm in 50 ml IV X1 Piper/Tazo Inj [Zosyn Inj] 4.5 gm Med 12/06/24 06:15 Ordered Sodium Chloride 0.9% (Pop) [NS 0.9% mini bag] 100 ml IV Q8HR Sodium Chloride 0.9% 1000 ml [Ns] 1,000 ml Med 12/06/24 01:08 Discontinued IV 999 mls/hr Code Status Routine Oth 12/06/24 06:03 Ordered Oxygen Delivery PRN RT 12/06/24 06:03 Active Vital Signs Vital signs: Vital Signs Temperature 99 F 12/05/24 22:00 Pulse Rate 100 12/05/24 22:00 Respiratory Rate 18 12/05/24 22:00 Blood Pressure 132/88 H 12/05/24 22:00 Pulse Oximetry (%) 96 12/05/24 22:00 Oxygen Delivery Method Room Air 12/05/24 22:00 GI Bleed MDM Narrative MDM Narrative:: Scribe Attestation: Antoneita Lockett am scribing for and in the presence of Dr. Schneider. Provider Notation: Although this document has been carefully reviewed, there may still be some phonetic and other typographical errors.? These errors are purely grammatical due to imperfections in the software program and should not be construed in any way to? compromise the substance of the patient's medical care during this visit. 0600: Care signed out to [facility]. Past medical, surgical, social and family history reviewed. Vitals and home medications reviewed. Results and treatment plan discussed. They will assume the care of the patient at this time and will follow the patient, pending CT and final disposition. Patient data External records reviewed:: [facility] previous records (Reviewed prior ED records from 11/15/24. Patient was seen for Complication of feeding tube.), EMS form and [facility] records Clinical information provided by:: EMS Social determinants that could affect healthcare access:: other (specify) (Nonverbal) Patient has the following chronic illnesses:: Cerebrovascular Accident, Transient Ischemic Attacks, Dementia, Peripheral Vascular Disease, Hypercholesterolemia, Hypertension, Gastroesophageal Reflux Disease How is presenting disease/condition affected by chronic disease/condition?: exacerbated by Evaluation data The following diagnostics were reviewed and interpreted by me:: lab results and radiology exam(s) Lab and/or radiology exams considered but not ordered:: None Interpretation Summary: RADIOLOGY Chest/Abdomen X-Ray: Pending official radiology report. Abdomen/Pelvis CT w/ Contrast: Findings: The lung bases are clear. The liver, gallbladder, pancreas, spleen and adrenals are unremarkable. No evidence of bowel obstruction. The appendix is within normal limits. There is no mesenteric or retroperitoneal adenopathy. The urinary bladder stones. Prominent urinary bladder wall. There is no free fluid or free air. Degenerative changes of the imaged portions of the spine. No acute fractures. Percutaneous gastroenteric feeding tube. Small bilateral renal simple cysts. Heterogenous enhancement in the right kidney. Bilateral renal cortical scarring. Moderate size hiatal hernia associated with peripheral fat stranding. Mild thickening of the sigmoid colon without peripheral fat stranding. Diverticulosis of the colon. 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 Impression: 1. Possible right pyelonephritis. 2. Moderate size hiatal hernia associated with peripheral inflammatory changes. Consider further evaluation. 3. Possible sigmoiditis. 4. Bladder stones and possible cystitis. 5. 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 Further evaluation with Doppler ultrasound is recommended. Medications / Prescriptions Medications or Prescriptions considered but not ordered:: None Medication administrations:: Medication Administration History Acetaminophen (Acetaminophen 325 Mg Tablet) 650 mg PO Q6H PRN PRN Reason: Fever >100.4 Stop: 01/05/25 06:02 Hydrocodone Bitart/Acetaminophen (Hydrocodone/Apap 5/325 Tablet) 1 tab PO Q4HR PRN PRN Reason: PAIN SCALE 4-6 (Moderate Stop: 12/11/24 06:02 Pantoprazole Sodium (Protonix/Ns 80mg Iv Premix) 80 mg in 100 mls @ 10 mls/hr IV X1 ONE Stop: 12/06/24 11:22 Last Admin: 12/06/24 01:43 Dose: 10 mls/hr Documented By: AREN Piperacillin Sod/Tazobactam (Sod 4.5 gm/ Sodium Chloride) 100 mls @ 200 mls/hr IV Q8HR AMY Stop: 12/13/24 06:14 Ondansetron HCl (Ondansetron Inj 2 Mg/Ml Inj 2 Ml) 4 mg IVP Q6H PRN; Protocol PRN Reason: NAUSEA OR VOMITING Stop: 01/05/25 06:02 Pantoprazole Sodium (Pantoprazole Inj 40 Mg Vial) 40 mg IVP BID [facility] Stop: 01/05/25 08:59 Discontinued Medications Sodium Chloride (Ns) 1,000 mls @ 999 mls/hr IV .Q1H1M ONE Stop: 12/06/24 02:08 Last Infusion: 12/06/24 02:46 Dose: Infused Documented By: Admin: 12/06/24 01:42 Dose: 999 mls/hr Documented By: AREN Acetaminophen (Ofirmev Inj) 1,000 mg in 100 mls @ 250 mls/hr IV Q6HR AMY Stop: 12/06/24 18:23 Last Admin: 12/06/24 03:48 Dose: Not Given Documented By: AREN Non-Admin Reason: Duplicate Medication on eMAR Acetaminophen (Ofirmev Inj) 1,000 mg in 100 mls @ 250 mls/hr IV NOW ONE Stop: 12/06/24 02:26 Last Infusion: 12/06/24 02:42 Dose: Infused Documented By: Admin: 12/06/24 02:05 Dose: 250 mls/hr Documented By: AREN Piperacillin/Tazobactam/Dextrose (Zosyn) 3.375 gm in 50 mls @ 100 mls/hr IV X1 ONE Stop: 12/06/24 03:24 Last Infusion: 12/06/24 04:30 Dose: Infused Documented By: Admin: 12/06/24 03:55 Dose: 100 mls/hr Documented By: AREN Pantoprazole Sodium (Pantoprazole Inj 40 Mg Vial) 80 mg IVP X1 ONE Stop: 12/06/24 01:23 Last Admin: 12/06/24 01:42 Dose: 80 mg Documented By: AREN See above if any Consultations Consultation(s) initiated? (list below): Yes Consultation #1 (Physician, Specialty, Details): Discussed with Dr. Yates for admission. Reviewed the patient?s HPI, PMHx, lab and/or radiology results. Discussed treatment plan. Will consult an admission to the hospitalist. Time: 05:44 Diagnosis GI bleed differential diagnosis: esophageal varices, gastritis, Denise-Espinosa syndrome, Upper gastrointestinal hemorrhage, Lower gastrointestinal hemorrhage and hematochezia Most likely diagnosis given after review of the tests above:: Upper GI bleed Admission Indicated Admission indicated?: not indicated Explain why admission is indicated or not indicated:: Upper GI bleed Admission Request Was there a request for admission?: No Disposition Plan Disposition Plan: Admit Discharge Plan Plan Patient Disposition: Admit Acute Care w/in Hospital Prescriptions/Referrals Prescriptions/Med Rec: No Action aspirin 81 mg Tablet,Delayed Release (Dr/Ec) 81 mg PO QDAY 30 Days Qty: 30 1RF donepezil 5 mg tablet 5 mg PO HS Patient Comments: TAKE 1 TABLET BY MOUTH EVERY DAY AT BEDTIME atorvastatin 80 mg tablet 80 mg PO QDAY Patient Comments: TAKE 1 TABLET BY MOUTH AT BEDTIME amitriptyline 25 mg tablet 25 mg PO QDAY Patient Comments: TAKE 1 TABLET BY MOUTH EVERY DAY AT BEDTIME tamsulosin 0.4 mg capsule 0.4 mg PO QDAY Patient Comments: TAKE 1 CAPSULE BY MOUTH WITH DINNER amlodipine 10 mg Tablet 10 mg PO QDAY lisinopril 5 mg Tablet 5 mg PO QDAY memantine 10 mg tablet 10 mg PO BID Patient Comments: TAKE 1 TABLET BY MOUTH TWICE DAILY Problem List Clinical Impression: Upper GI bleed Patient/Caregiver Discharge Instructions Print Language: Thai Stand Alone Forms: Sindy Award Info., Patient Portal Info Letter
--- NOTE | 2024-12-06 01:10 | XR_ITS ---
Examination: CT abdomen with intravenous contrast CT pelvis with intravenous contrast 2-D coronal reconstructions 2-D sagittal reconstructions Date and time of exam:December 06, 2024 0347 hours INDICATIONS: Sepsis alert today, vomiting blood, fever or leukocytosis. CTDI: vol (mGy) 14.2 DLP: (mGycm) 748 Technique: Multiple axial sections of the abdomen and pelvis have been obtained. 64 slice high-resolution scanner used. 3 mm axial sections have been obtained, post intravenous injection 60 cc [id number] 2-D sagittal, coronal reconstructions obtained. Low dose protocols were performed. One or more of the following dose reduction techniques were used; automated exposure control, adjustment of the mA and/or KV according to patient size, use of iterative reconstruction technique. Findings: 37 mm bleb in the right lower lung zone Retrocardiac gastric hernia Mucosal thickening in the stomach Liver is irregular in contour Contracted gallbladder Feeding tube in small bowel No pancreatic mass Significant renal scar formation No hydronephrosis No bowel obstruction Aortic calcification Normal appendix Colonic diverticulosis There is mild diffuse thickening of the sigmoid colon Multiple tiny bladder calculi with bladder wall thickening Left common iliac artery 16 mm IMPRESSION: Significant renal scar formation, I do not visualize definite pyelonephritis Colonic diverticulosis Mild diffuse thickening of the sigmoid colon, clinical correlation advised Multiple small bladder calculi with cystitis pattern
[2024-12-06 01:32] LABS: Lactate (Lactic Acid) 1.1 mMol/L (0.4-2.0)
[2024-12-06 01:41] LABS: Procalcitonin 0.11 ng/ml (0.0-0.49)
[2024-12-06] MEDS: PANTOPRAZOLE INJ 40 MG VIAL 80 MG IVP (01:42)
[2024-12-06] MEDS: SODIUM CHLORIDE 0.9% 1000 ML 1,000 ML 999 ML IV ×2 (01:42→20:45)
[2024-12-06] MEDS: PANTOPRAZOLE/NS 80MG IV PREMIX 80 MG/100 ML BAG 10 MG IV ×2 (01:43→22:19)
--- NOTE | 2024-12-06 02:00 | PC.NURSE ---
feeding tube irrigated and content checked. Liquid from stomache does appear like coffee ground. Prakash was shown to [facility] SCOTT.
[2024-12-06] MEDS: ACETAMINOPHEN IVPB 1,000 MG/100 ML VIAL 250 MG IV (02:05)
--- NOTE | 2024-12-06 02:30 | PC.NURSE ---
pt inc of urine and was cleaned and changed.
[2024-12-06] MEDS: PIPER/TAZO 3.375 GM PREMIX 3.375 GM/50 ML BAG IV (03:55)
--- NOTE | 2024-12-06 04:59 | PC.NURSE ---
pt inc of small brown loose stool. pt cleaned and changed.
--- NOTE | 2024-12-06 05:18 | PRELIM_ITS ---
CT scan of the abdomen and pelvis with intravenous contrast (axial sections with sagittal and coronal reformats) December 06, 2024 at 0347 hours Clinical History: Vomiting, fever, leukocytosis. Comparison: No prior study is available for comparison. Findings: The lung bases are clear. The liver, gallbladder, pancreas, spleen and adrenals are unremarkable. No evidence of bowel obstruction. The appendix is within normal limits. There is no mesenteric or retroperitoneal adenopathy. The urinary bladder stones. Prominent urinary bladder wall. There is no free fluid or free air. Degenerative changes of the imaged portions of the spine. No acute fractures. Percutaneous gastroenteric feeding tube. Small bilateral renal simple cysts. Heterogenous enhancement in the right kidney. Bilateral renal cortical scarring. Moderate size hiatal hernia associated with peripheral fat stranding. Mild thickening of the sigmoid colon without peripheral fat stranding. Diverticulosis of the colon. 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 Impression: 1. Possible right pyelonephritis. 2. Moderate size hiatal hernia associated with peripheral inflammatory changes. Consider further evaluation. 3. Possible sigmoiditis. 4. Bladder stones and possible cystitis. 5. 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 Further evaluation with Doppler ultrasound is recommended. Report Electronically Signed By: Agustin Johnson 12/06/2024 5:17:52 AM [EST]
--- NOTE | 2024-12-06 05:22 | PC.NURSE ---
pot is nonverbal. pt has been awake and restless since arival.
--- NOTE | 2024-12-06 05:50 | PC.NURSE ---
no vomiting since arrival.
--- NOTE | 2024-12-06 06:09 | ESHP_ITS ---
<Statement entered by Buck Meraz MD - 12/06/24 06:54> I Buck Meraz MD reviewed the note and agree with the resident's assessment & plan with exceptions as below. I have personally reviewed labs, imaging, home meds/prior records, examined the patient, formulated and discussed management plan with the IM team. A 69-year-old male with history of prior CVA leading to dementia currently nonverbal with PEG tube in place, had recent hospitalization for hematemesis (details unclear) presented to ED with nonbloody emesis. On further evaluation noted to be tachycardic, labs significant for leukocytosis and hyponatremia, clinical examination with findings of apparent Hernandez catheter at the site of G- tube with tip extending into ileum which was suctioned earlier revealing small black clots. Will admit for PEG tube dislodgment, potential pyelonephritis and sigmoiditis as evidenced on CT scan along with hyponatremia. Continue with IV fluid resuscitation, empirically treat with Zosyn and vancomycin, hold on G-tube feeding or suction, consult IR for repositioning of the G-tube. Will start on Protonix IV 40 mg twice daily for potential gastritis/traumatic injury to the bowel. Consult GI for endoscopy to evaluate for evident black clots coming out from G-tube and recent evidence of hematemesis.. Documentation for date of: 12/06/24 HPI History of Present Illness Chief complaint: bloody vomit History of present illness: 69-year-old male with past medical history of CVA with residual right-sided hemiparesis, hypertension, hyperlipidemia, BPH, and dementia (nonverbal) was admitted to the hospital 12/06/2024 after coming to the ED due to an episode of bloody vomiting at [facility] where he resides. Given patient not being verbal most of the history was taken from chart review at this time. Patient was found to have today of episode of bloody emesis prior to coming to the ED and patient was also found to have some residual in his tube feedings as well. Otherwise no other history was available at this time. ED course: Initially patient came in afebrile and mildly hypertensive. Initial labs were relevant for leukocytosis, hemoglobin was stable at 13.2, hyponatremia, and UA was negative. Initial imaging included abdomen/pelvis CT which showed right pyelonephritis, sigmoiditis, bladder stones, cystitis, hiatal hernia, and aneurysm dilation of the left common iliac artery measuring 1.9 cm. In the ED patient received fluids and Zosyn. Attempts to contact family were unsuccessful. Review of Systems Review of Systems ROS Unobtainable: unobtainable due to medical condition Past Medical History Past Medical History NEUROLOGIC: Positive Neurological Disorders, Cerebrovascular Accident, Transient Ischemic Attacks (TIA) and Dementia CARDIAC: Positive Cardiac Disorders, Peripheral Vascular Disease, Hypercholesterolemia and Hypertension; Negative Congestive Heart Failure RESPIRATORY: Negative Chronic Obstructive Pulmonary Disease (COPD) GASTROINTESTINAL: Positive Gastroesophageal Reflux Disease; Negative Gastrointestinal Disorders GENITOURINARY: Negative Genitourinary Disorders or Renal Disease MUSCULOSKELETAL: Negative Musculoskeletal Disorders ENDOCRINE: Negative Endocrine Disorders, Diabetes Mellitus Type 1 or Diabetes Mellitus Type 2 HEMATOLOGIC: Negative Blood Disorders PSYCHO/SOCIAL: Positive Psychiatric Problems OTHER HISTORY: Positive Hospitalization and Falls; Negative Autoimmune Disease, Down Syndrome, Developmental Delay, Shingles, Anesthesia Reactions, MRSA, VRSA, Vancomycin-Resistant Enterococci, Clostridium Difficile or Cancer Family History FAMILY HISTORY: Negative Family Psychiatric Problems, Family Respiratory Disorders, Family Cardiac Disorders, Family Gastrointestinal Problems, Family Cancer, Family Surgery or Family Anesthesia Reaction Surgical History SURGICAL: Negative Cardiac Surgery, Endocrine Surgery, Thyroidectomy, Ear Surgery, Abdominal Surgery, Nephrectomy, Joint Replacement, Neurologic Surgery, Brain Shunt, Mastectomy or Vasectomy Social History SMOKING STATUS: Unknown if ever smoked SECOND HAND EXPOSURE: No Exam Vital Signs Temp Pulse Resp BP Pulse Ox O2 Del Method 98.9 F 116 H 17 102/70 97 Room Air 12/06/24 04:13 12/06/24 04:13 12/06/24 04:13 12/06/24 05:00 12/06/24 05:00 12/06/24 04:13 Narrative Exam General: Nonverbal, no acute distress, cachectic Eyes: PERRL, EOMI. Anicteric Ears: No visible ear discharge Nose: No nasal discharge. Mouth/Throat: Dry mucous membranes, no redness, no lesions. Neck: Neck supple, non-tender, no cervical lymphadenopathy. Lungs: Clear DREAD to auscultation and percussion, No accessory muscle use. Cardio: Normal S1/S2, regular rhythm, no murmurs, no JVD Abdomen: Soft, non-tender, no palpable masses, peristalsis present, no guarding or rebound, hernandez catheter in site of PEG tube. Extremities: Symmetrical, R UE contracture, no peripheral edema , non-tender, peripheral pulses presents. Skin: No rashes, no lesions, warm to touch. Neuro: R side hemiparesis, L side able to move w/o difficulty, nonverbal and not able to follow commands. Results: Labs 12/05/24 22:22 12/05/24 22:22 Labs: Short CBC 12/05/24 Range/Units 22:22 WBC 20.6 H (3.8-10.6) Thou/mm3 Hgb 13.2 L (13.5-16.0) g/dL Hct 36.5 L (41.0-53.0) % Plt Count 337 D (140-440) Thou/mm3 BMP 12/05/24 22:22 Sodium 129 L Potassium 4.3 Chloride 94 L Carbon Dioxide 26.2 BUN 19 Creatinine 0.9 Glucose 112 H Calcium 9.3 Liver Function 12/05/24 Range/Units 22:22 Total Bilirubin 1.0 (0.3-1.2) mg/dL AST 25 (0-34) U/L ALT 43 (10-49) U/L Alkaline Phosphatase 110 (46-116) U/L Albumin 4.3 (3.4-4.8) gm/dL Urine 12/05/24 Range/Units 22:53 Urine Color Yellow (Lt Yel-Yel) Urine Clarity Turbid A (Clear/Hazy) Urine pH 7.5 H (5.0-7.0) Ur Specific [place] 1.017 (1.001-1.035) Urine Protein Trace (Neg - Trace) Urine Glucose (UA) Negative (Negative) Quality Measures Quality Measures sepsis Current suspected stage: ruled out Possible source: genitourinary Blood cultures ordered: yes Antibiotic ordered: Yes and none Advance care planning discussed with:: patient Medications Home Medications and Allergies Home Medications ?Medication ?Instructions ?Recorded ?Confirmed ?Type donepezil 5 mg tablet 5 mg PO HS 09/15/23 09/15/23 History amitriptyline 25 mg tablet 25 mg PO QDAY 09/16/2310/05 History amlodipine 10 mg tablet 10 mg PO QDAY 09/16/2309/15 History atorvastatin 80 mg tablet 80 mg PO QDAY 09/16/2309/15 History lisinopril 5 mg tablet 5 mg PO QDAY 09/16/23 History memantine 10 mg tablet 10 mg PO BID 09/16/23 History tamsulosin 0.4 mg capsule 0.4 mg PO QDAY 09/16/2310/05 History Allergies Allergy/AdvReac Type Severity Reaction Status Date / Time No Known Allergies Allergy Verified 10/08/24 19:28 Visit Medications Pantoprazole Sodium (Protonix/Ns 80mg Iv Premix) 80 mg in 100 mls @ 10 mls/hr IV X1 ONE Stop: 12/06/24 11:22 Last Admin: 12/06/24 01:43 Dose: 10 mls/hr Ondansetron HCl (Ondansetron Inj 2 Mg/Ml Inj 2 Ml) 4 mg IVP Q6H PRN; Protocol PRN Reason: NAUSEA OR VOMITING Stop: 01/05/25 06:02 Pantoprazole Sodium (Pantoprazole Inj 40 Mg Vial) 40 mg IVP BID AMY Stop: 01/05/25 08:59 Discontinued Medications Sodium Chloride (Ns) 1,000 mls @ 999 mls/hr IV .Q1H1M ONE Stop: 12/06/24 02:08 Last Infusion: 12/06/24 02:46 Dose: Infused Acetaminophen (Ofirmev Inj) 1,000 mg in 100 mls @ 250 mls/hr IV Q6HR AMY Stop: 12/06/24 18:23 Last Admin: 12/06/24 03:48 Dose: Not Given Acetaminophen (Ofirmev Inj) 1,000 mg in 100 mls @ 250 mls/hr IV NOW ONE Stop: 12/06/24 02:26 Last Infusion: 12/06/24 02:42 Dose: Infused Piperacillin/Tazobactam/Dextrose (Zosyn) 3.375 gm in 50 mls @ 100 mls/hr IV X1 ONE Stop: 12/06/24 03:24 Last Infusion: 12/06/24 04:30 Dose: Infused Pantoprazole Sodium (Pantoprazole Inj 40 Mg Vial) 80 mg IVP X1 ONE Stop: 12/06/24 01:23 Last Admin: 12/06/24 01:42 Dose: 80 mg Assessment & Plan Plan 69-year-old male with past medical history of CVA with residual right-sided hemiparesis, hypertension, hyperlipidemia, BPH, and dementia (nonverbal) was admitted to the hospital 12/06/2024 for pyelonephritis and upper GI bleed. #Right pyelonephritis #Cystitis # Leukocytosis Patient came in from [facility] and was found to have right pyelonephritis and cystitis on abdomen/pelvis CT UA was negative for any bacteria Patient does have a leukocytosis of 20.6, but no fevers. 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 Diet: NPO GI prophylaxis: protonix DVT prophylaxis: SCDs Code: DNR/DNI Case disclosed with Attending Dr. Kt Weiss PGY1 Disclaimer: Even though this this note was dictated by speech recognition and even though it was carefully revised there may still be minor errors in financial sales advisor due to voice recognition software.
[2024-12-06] MEDS: SODIUM CHLORIDE 0.9% 1000 ML 1,000 ML 65 ML IV (07:48)
--- NOTE | 2024-12-06 08:01 | PC.NURSE ---
PT NON-VERBAL, RESTING W/EYES CLOSED, VSS ON TELE, DOES NOT APPEAR TO BE IN ANY PAIN OR DISTRESS AT THIS TIME. HAND-OFF GIVEN TO MATHEW ESTRADA, READY TO ACCEPT PT TO FLOOR.
[2024-12-06] MEDS: VANCOMYCIN/NS 750 MG IVPB 750 MG/150 ML BAG 120 MG IV ×2 (10:39→22:50)
--- NOTE | 2024-12-06 12:08 | PD.IMCONS ---
HPI Data of Consult Requesting Physician: Buck Meraz MD Primary Care Provider: Physician No Primary/Family Consult Narrative Reason for consult: Hematemesis History of present illness: 69 years old male evaluated request of the internal medicine team for hematemesis No history obtainable from the patient History from the chart review CT scan of the abdomen pelvis with contrast showed chronic diverticulosis diffuse thickening of the sigmoid colon Patient has a history of CVA with right-sided residual motor weakness hypertension hyperlipidemia BPH and underlying dementia and is nonverbal cc:: cc: Buck Meraz MD Review of Systems Review of Systems ROS Unobtainable: unobtainable due to medical condition Past Medical History Surgical History OTHER SURGICAL HX: As in the history of present illness Meds Home Medications and Allergies Home Medications ?Medication ?Instructions ?Recorded ?Confirmed ?Type donepezil 5 mg tablet 5 mg PO HS 09/15/23 09/15/23 History amitriptyline 25 mg tablet 25 mg PO QDAY 09/16/23 09/16/23 History amlodipine 10 mg tablet 10 mg PO QDAY 09/16/23 09/16/23 History atorvastatin 80 mg tablet 80 mg PO QDAY 09/16/23 09/16/23 History lisinopril 5 mg tablet 5 mg PO QDAY 09/16/23 09/16/23 History memantine 10 mg tablet 10 mg PO BID 09/16/23 09/16/23 History tamsulosin 0.4 mg capsule 0.4 mg PO QDAY 09/16/23 09/16/23 History Allergies Allergy/AdvReac Type Severity Reaction Status Date / Time No Known Allergies Allergy Verified 10/08/24 19:28 Exam Vital Signs Temp Pulse Resp BP Pulse Ox O2 Del Method 97.8 F 94 17 119/65 95 Room Air 12/06/24 08:50 12/06/24 08:50 12/06/24 08:50 12/06/24 08:50 12/06/24 08:50 12/06/24 08:50 Routine Respiratory Exam Comments: Normal to auscultation Routine Abdominal Exam Comments: Soft nontender PEG tube in place which is dislodged Results Labs 12/05/24 22:22 12/05/24 22:22 Labs: Short CBC 12/05/24 Range/Units 22:22 WBC 20.6 H (3.8-10.6) Thou/mm3 Hgb 13.2 L (13.5-16.0) g/dL Hct 36.5 L (41.0-53.0) % Plt Count 337 D (140-440) Thou/mm3 BMP 12/05/24 22:22 Sodium 129 L Potassium 4.3 Chloride 94 L Carbon Dioxide 26.2 BUN 19 Creatinine 0.9 Glucose 112 H Calcium 9.3 Liver Function 12/05/24 Range/Units 22:22 Total Bilirubin 1.0 (0.3-1.2) mg/dL AST 25 (0-34) U/L ALT 43 (10-49) U/L Alkaline Phosphatase 110 (46-116) U/L Albumin 4.3 (3.4-4.8) gm/dL Urine 12/05/24 Range/Units 22:53 Urine Color Yellow (Lt Yel-Yel) Urine Clarity Turbid A (Clear/Hazy) Urine pH 7.5 H (5.0-7.0) Ur Specific [place] 1.017 (1.001-1.035) Urine Protein Trace (Neg - Trace) Urine Glucose (UA) Negative (Negative) Assessment and Plan Additional Assessment & Plan Additional Plan: # Hematemesis # Dislodged PEG tube and malfunctioning PEG tube plan fiberoptic esophagogastroduodenoscopy with possible biopsy possible therapeutic intervention under intravenous moderate sedation Consent obtained from the appropriate authorities and will proceed with the procedure Other medical problems include CVA right sided motor weakness Essential hypertension Hyperlipidemia BPH Dementia Thank you very much for the opportunity to participate in the care of this patient
--- NOTE | 2024-12-06 12:14 | EKG_ITS ---
[facility] Test Date: 2024-12-06 Pat Name: LARRY BAE [facility] Custom Miller: EMMIE : 1955 Requested By: Ghulam Lozano Order Number: [id number] Reading MD: Ghulam Lozano Measurements Intervals [place] Rate: 96 P: 53 NC: 152 QRS: 56 QRSD: 85 T: 41 QT: 351 QTc: 445 Interpretive Statements SINUS RHYTHM LOW QRS VOLTAGE IN EXTREMITY LEADS Compared to ECG 11/15/2024 18:53:22 Low QRS voltage now present Sinus bradycardia no longer present /store/S0/[id number]/ecg/[id number].pdf
--- NOTE | 2024-12-06 12:14 | PC.NURSE ---
Received call from patient's sister Halina Hanks stating her number on file is acting up. Provided alternate number of [phone]. Stated that she may be easier to reach due to patients daughter Leida working many hours.
--- NOTE | 2024-12-06 12:22 | PC.NURSE ---
Addendum entered by Spring Tuttle RN 12/06/24 13:59: Reattempted contact with family to obtain consent, reached 2nd sister @ [phone] who stated she will reach out to Halina for her to contact the hospital. Original Note: This nurse attempted to contact sister Halina Hanks at number provided and number on chart, unsuccessful. Unable to reach daughter Leida at number on file at this time. Pending consent for EGD.
--- NOTE | 2024-12-06 12:54 | PC.DIETICIAN ---
Dietitian recommendation:When medically feasible, start enteral nutrition equivalent: Jevity 1.2 at 20ml/hr, increase as tolerated by 10ml/hr Q 8hrs to goal of 70ml/hr x 24hrs via G-tube by pump to provide: 1680ml total vol, 2016kcal, 92g protein. If no IVF give water flush of 100ml Q 4hrs or per MD Thank you
--- NOTE | 2024-12-06 13:19 | PD.RESPRO ---
Documentation for date of: 12/06/24 Subjective Subjective Interval history: Patient seen and examined at bedside. Patient has PEG tube dislodgment, consulted GI. Will continue IV Protonix twice daily Started on Zyprexa every 8 hour as needed for severe agitation, max dose is 3. Patient will be evaluated by gastroenterology today. Will continue with IV antibiotics. Patient is nonverbal, unable to provide much history. Exam Vital Signs Temp Pulse Resp BP Pulse Ox O2 Del Method 98.3 F 91 16 101/57 L 95 Room Air 12/06/24 12:00 12/06/24 12:00 12/06/24 12:00 12/06/24 12:00 12/06/24 12:00 12/06/24 12:00 Narrative Exam General: Nonverbal, no acute distress, cachectic Eyes: PERRL, EOMI. Anicteric Ears: No visible ear discharge Nose: No nasal discharge. Mouth/Throat: Dry mucous membranes, no redness, no lesions. Neck: Neck supple, non-tender, no cervical lymphadenopathy. Lungs: Clear DREAD to auscultation and percussion, No accessory muscle use. Cardio: Normal S1/S2, regular rhythm, no murmurs, no JVD Abdomen: Soft, non-tender, no palpable masses, peristalsis present, no guarding or rebound, PEG tube noted.. Extremities: Symmetrical, R UE contracture, no peripheral edema , non-tender, peripheral pulses presents. Skin: No rashes, no lesions, warm to touch. Neuro: R side hemiparesis, L side able to move w/o difficulty, nonverbal and not able to follow commands. Objective Labs 12/05/24 22:22 12/05/24 22:22 Labs: Laboratory Results - last 24 hr 12/05/24 12/05/24 12/06/24 22:22 22:53 01:28 WBC 20.6 H RBC 4.56 Hgb 13.2 L Hct 36.5 L MCV 80 MCH 28.9 MCHC 36.2 RDW Std Deviation 43.2 Plt Count 337 D Neut % (Auto) 85 H Lymph % (Auto) 5 L [place] % (Auto) 8 Eos % (Auto) 1 Baso % (Auto) 0 Neut # (Auto) 17.5 H Lymph # (Auto) 1.1 [place] # (Auto) 1.7 H Eos # (Auto) 0.1 Baso # (Auto) 0.0 Immature Gran # (Auto) 0.09 H Absolute Nucleated RBC 0.00 Immature Gran % 0 Nucleated RBC % 0 APTT 31.5 Sodium 129 L Potassium 4.3 Chloride 94 L Carbon Dioxide 26.2 Anion Gap 9 BUN 19 Creatinine 0.9 Estim Creat Clear Calc 67.1 eGFR > 60 BUN/Creatinine Ratio 21 H Glucose 112 H Calculated Osmolality 262 L Lactic Acid 1.4 1.1 Calcium 9.3 Corrected Calcium 9.3 Total Bilirubin 1.0 AST 25 ALT 43 Alkaline Phosphatase 110 Total Protein 7.3 Albumin 4.3 Globulin 3.0 Albumin/Globulin Ratio 1.4 Procalcitonin 0.11 Ur Collection Type Catheter Urine Color Yellow Urine Clarity Turbid A Urine pH 7.5 H Ur Specific [place] 1.017 Urine Protein Trace Urine Glucose (UA) Negative Urine Ketones Negative Urine Blood Negative Urine Nitrite Negative Urine Bilirubin Negative Urine Urobilinogen (Auto) Negative Ur Leukocyte Esterase Negative Urine RBC 23 H Urine WBC 2 Ur Squamous Epith Cells 1 Amorphous Crystals Present A Urine Bacteria None Hyaline Casts < 1 Ur Culture Indicated? Not Indicated Quality Measures Quality Measures sepsis Current suspected stage: ruled out Possible source: genitourinary Blood cultures ordered: yes Antibiotic ordered: Yes and none Advance care planning discussed with:: patient Assessment & Plan Assessment Current Active Medications: Generic Name Dose Route Start Last Admin Trade Name Freq PRN Reason Stop Dose Admin Acetaminophen 650 mg 12/06/24 06:03 Acetaminophen 325 Mg Tablet PO 01/05/25 06:02 Q6H PRN Fever >100.4 Hydrocodone Bitart/Acetaminophen 1 tab 12/06/24 06:03 Hydrocodone/Apap 5/325 Tablet PO 12/11/24 06:02 Q4HR PRN PAIN SCALE 4-6 (Moderate Olanzapine 5 mg/ Sterile Water 0 mg 12/06/24 12:14 2.1 ml IM [id number] PRN Severe Agitation Piperacillin Sod/Tazobactam 100 mls @ 200 mls/hr 12/06/24 14:00 Sod 4.5 gm/ Sodium Chloride IV 12/13/24 13:59 Q8HR AMY Sodium Chloride 1,000 mls @ 65 mls/hr 12/06/24 06:30 12/06/24 07:48 Ns IV 12/06/24 21:53 65 mls/hr .[id number] AMY Administration Vancomycin/Sodium Chloride 750 mg in 150 mls @ 120 mls/hr 12/06/24 10:00 12/06/24 10:39 Vancomycin/Ns 750 Mg Ivpb IV 12/13/24 09:59 120 mls/hr BID@1000,2200 AMY Administration Protocol Ondansetron HCl 4 mg 12/06/24 06:03 Ondansetron Inj 2 Mg/Ml Inj 2 Ml IVP 01/05/25 06:02 Q6H PRN NAUSEA OR VOMITING Protocol Pantoprazole Sodium 40 mg 12/06/24 09:00 12/06/24 10:00 Pantoprazole Inj 40 Mg Vial IVP 01/05/25 08:59 Not Given BID AMY Pharmacy Consult 1 each 12/06/24 09:11 Vancomycin Pharmacy To Dose 1 Each Each IV 01/05/25 09:10 QDAY PRN CONSULT Plan Summary: Mr. Doan is a 69-year-old male with past medical history of CVA with residual right-sided hemiparesis, status post PEG tube placement, hypertension, hyperlipidemia, iliofemoral bypass, BPH, and dementia (nonverbal) was admitted to the hospital 12/06/2024 for pyelonephritis and upper GI bleed. #Right pyelonephritis #Cystitis # Leukocytosis #1/2 GPC bacteremia Patient came in from [facility] and was found to have right pyelonephritis and cystitis on abdomen/pelvis CT UA was negative for any bacteria Patient does have a leukocytosis of 20.6, but no fevers. 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 Diet: NPO, currently PEG tube is dislodged GI prophylaxis: protonix DVT prophylaxis: SCDs Code: DNR/DNI Case discussed with Attending Dr. Guillen. Ghulam Lozano PGY1 Disclaimer: This note was dictated by speech recognition. Minor errors in registrar college or university may be present due to voice recognition software. Attending Provider Attestation/Addendum I have discussed and was present for the essential components of the history, physical examination, diagnosis, and treatment plan with the resident. I agree with the patient's care as documented by the resident and amended herein by me. Bertram Guillen DO. Although this document has been carefully reviewed, there may still be some phonetic and other typographical errors. These errors are purely grammatical due to imperfections in the software program and should not be construed in any way to compromise the substance of the patient's medical care during this visit.
[2024-12-06] MEDS: PIPER/TAZO INJ 4.5 GM in SODIUM CHLORIDE 0.9% (POP) 100 ML IV ×2 (13:37→22:21)
--- NOTE | 2024-12-06 15:03 | PC.NURSE ---
Halina (sister) was present to sign pt consent for EGD. If unable to get ahold of Halina contact Talisha (sister) at [phone] for up date on pt status.
--- NOTE | 2024-12-06 20:25 | SUR.PHASEI ---
2024 arrive PACU with RN x 2, pt on monitor, Ty Gates at bedside and on phone with hospitalist. 12 EKG ordered, sugar house supervisor notified and transfer to tele order in place. pt continues low nbp and fluid bolus infusing. Atrial fib. continues and medication Diltiazem being delivered by pharmacy. Monitor.
--- NOTE | 2024-12-06 20:31 | EKG_ITS ---
[facility] (Former[facility] Test Date: 2024-12-06 Pat Name: LARRY BAE [facility] Surgeon'S Assistant: EMMIE : 1955 Requested By: Srikanth Crawford Order Number: [id number] Reading MD: Srikanth Crawford Measurements Intervals [place] Rate: 81 P: 54 [place]: 162 QRS: 54 QRSD: 86 T: 40 QT: 357 QTc: 417 Interpretive Statements SINUS RHYTHM WITH OCCASIONAL VENTRICULAR PREMATURE COMPLEXES Compared to ECG 12/06/2024 13:44:16 Ventricular premature complex(es) now present /store/S0/[id number]/ecg/[id number].pdf
[2024-12-06] MEDS: DILTIAZEM INJ 5 MG/ML VIAL 5 ML 10 MG IV (20:45)
--- NOTE | 2024-12-06 20:45 | SUR.PHASEI ---
2044 Dr. Crawford and Hospitalist at bedside. EKG being done. Diltiazem administered. NBP continues low and IV Fluid bolus continues. Pt resting quietly. VS stable unchanged, continues in A Fib.
--- NOTE | 2024-12-06 20:54 | PC.NURSE ---
REPORT RECEIVED FROM LYNDON ESTRADA MS. PT IS IN ENDOSCOPY AT THIS TIME.
--- NOTE | 2024-12-06 21:00 | SUR.PHASEI ---
2100 Continue to monitor heart rate and nbp, heart rate periodically elevated 110. NBP improving. Pt resting quietly.
--- NOTE | 2024-12-06 22:04 | SUR.PHASEI ---
2155 pt transferred to tele bed 274 after updating hospitalist and getting approval to transfer. Report given prior to arrival at tele as well as at bedside. All questions answered. Pt status stable.
[2024-12-06 22:45] LABS: Hematocrit 27.2 % (41.0-53.0); Hemoglobin 9.9 g/dL (13.5-16.0)
[2024-12-06] MEDS: OCTREOTIDE ACET INJ 50 mCg/ML VIAL IV (22:53)
[2024-12-06] MEDS: OCTREOTIDE ACET INJ 1,000 MCG in SODIUM CHLORIDE 0.9% 100 ML 5.1 MCG IV (22:56)
--- NOTE | 2024-12-06 23:37 | PC.NURSE ---
PT'S DAUGHTER HELEN CALLED AND UPDATED WITH PLAN OF CARE,SHE VERBALIZED UNDERSTANDING. SHE GAVE THE PHONE NUMBERS TO REACH HER CELL#[phone],WORK#[phone] EXT [phone].
[2024-12-07] VITALS (9 sets, daily range): BP systolic 96–131; BP diastolic 68–84; PULSE 70–103; RESP 13–98; TEMP 36.3–36.7; O2SAT 96–100
[2024-12-07] MEDS: PIPER/TAZO INJ 4.5 GM in SODIUM CHLORIDE 0.9% (POP) 100 ML IV (05:04)
[2024-12-07 05:49] LABS: Basophils # (Auto) 0.1 Thou/mm3 (0.0-0.2); Basophils % (Auto) 0 % (0-2.5); Eosinophils # (Auto) 0.2 Thou/mm3 (0.0-0.5); Eosinophils % (Auto) 2 % (0-10); Hematocrit 29.8 % (41.0-53.0); Hemoglobin 10.2 g/dL (13.5-16.0); Immature Granulocytes % (Auto) 1 % (0-0); Immature Granulocytes Auto 0.07 Thou/mm3 (0.00-0.00); Lymphocytes # (Auto) 1.5 Thou/mm3 (1.0-4.8); Lymphocytes % (Auto) 10 % (10-50); Mean Corpuscular HGB Conc 34.2 g/dl (31.0-37.0); Mean Corpuscular Hemoglobin 29.1 pg (25.0-35.0); Mean Corpuscular Volume 85 fL (80-100); Monocytes # (Auto) 1.5 Thou/mm3 (0.0-0.8); Monocytes % (Auto) 11 % (0-12); Neutrophils # (Auto) 10.7 Thou/mm3 (1.8-7.7); Neutrophils % (Auto) 77 % (37-80); Nucleated Red Blood Cell % 0 /100 WBC (0); Platelet Count 249 Thou/mm3 (140-440); RDW Standard Deviation 47.1 fL (35.1-43.9)
[2024-12-07] MEDS: PANTOPRAZOLE/NS 80MG IV PREMIX 80 MG/100 ML BAG 10 MG IV ×2 (06:08→17:09)
[2024-12-07 06:55] LABS: Alanine Aminotransferase 28 U/L (10-49); Albumin, Serum 3.3 gm/dL (3.4-4.8); Albumin/Globulin Ratio 1.4 (1.2-2.2); Alkaline Phosphatase 76 U/L (46-116); Anion Gap 12 (7-16); Aspartate Amino Transferase 32 U/L (0-34); BUN/Creatinine Ratio 21 Ratio (12-20); Bilirubin,Total 1.5 mg/dL (0.3-1.2); Blood Urea Nitrogen 21 mg/dL (9-23); Calcium 8.1 mg/dL (8.3-10.6); Calcium (Corrected) 8.7 mg/dL (8.5-10.1); Carbon Dioxide 19.3 mMol/L (20.0-31.0); Cardiac Risk Estimate 2.2 RATIO (4.0-6.7); Chloride 104 mMol/L (98-107); Cholesterol 96 mg/dL (132-200); Estimated Creatinine Clearance 59.2 mL/min (>60); Globulin 2.3 gm/dL (2.3-3.5); Glucose 117 mg/dL (74-106); HDL Cholesterol 43 mg/dL (40-60); LDL Cholesterol,Calculated 46 mg/dL (0-130); Magnesium 1.9 mg/dL (1.6-2.6); Osmolality,Calculated 274 (275-295); Phosphorous 2.9 mg/dL (2.4-5.1); Potassium 4.4 mMol/L (3.4-5.1); Sodium 135 mMol/L (136-145); Total Protein 5.6 gm/dL (5.7-8.2); Triglycerides 34 mg/dL (30-150); eGFR > 60 See Note
--- NOTE | 2024-12-07 11:40 | PD.IMCONS ---
HPI Data of Consult Requesting Physician: Buck Meraz MD Primary Care Provider: Physician No Primary/Family Consult Narrative History of present illness: This a 69-year-old male with past medical history of CVA with residual right-sided hemiparesis, hypertension, hyperlipidemia, BPH, and dementia (nonverbal) pt was admitted with hematemesis w/u with EGD reveals lynne campos tear subsequently pt developed afib rapid cardiology consulted currently started on amiodarone drip HR improved to 100 cc:: cc: Buck Meraz MD Meds Home Medications and Allergies Home Medications ?Medication ?Instructions ?Recorded ?Confirmed ?Type donepezil 5 mg tablet 5 mg PO HS 09/15/23 12/07/24 History amitriptyline 25 mg tablet 25 mg PO QDAY 09/16/23 12/07/24 History amlodipine 10 mg tablet 10 mg PO QDAY 09/16/23 12/07/24 History atorvastatin 80 mg tablet 80 mg PO QDAY 09/16/23 12/08/24 History lisinopril 5 mg tablet 5 mg PO QDAY 09/16/23 12/07/24 History memantine 10 mg tablet 10 mg PO BID 09/16/23 12/07/24 History tamsulosin 0.4 mg capsule 0.4 mg PO QDAY 09/16/23 12/07/24 History apixaban 5 mg tablet (Eliquis) 5 mg feeding tube BID 12/07/24 12/07/24 History atorvastatin 40 mg tablet 40 mg feeding tube QPM 12/07/24 12/07/24 History baclofen 5 mg tablet 2.5 mg feeding tube BID 12/07/24 12/07/24 History docusate sodium 100 mg tablet (DOK) 100 mg PO BID 12/07/24 12/07/24 History folic acid 1 mg tablet 1 mg feeding tube QDAY 12/07/24 12/07/24 History ipratropium 0.5 mg-albuterol 3 mg 3 ml inhalation Q4H PRN shortness 12/07/24 12/07/24 History (2.5 mg base)/3 mL nebulization of breath or wheezing soln lansoprazole 30 mg capsule,delayed 30 mg feeding tube QDAY 12/07/24 12/07/24 History release metoprolol tartrate 25 mg tablet 12.5 mg feeding tube BID 12/07/24 12/07/24 History Allergies Allergy/AdvReac Type Severity Reaction Status Date / Time No Known Allergies Allergy Verified 10/08/24 19:28 Exam Vital Signs Temp Pulse Resp BP Pulse Ox O2 Del Method O2 Flow Rate 97.6 F 83 15 110/73 97 Room Air 3 12/07/24 08:00 12/07/24 08:00 12/07/24 08:00 12/07/24 08:00 12/07/24 08:00 12/07/24 08:00 12/06/24 20:30 Routine HEENT Exam Head: Present normocephalic and atraumatic Eye: Present EOMI and PERRL ENT: Present mucous membranes moist Routine Neck Exam Neck: Present supple and trachea midline Routine Respiratory Exam Respiratory: Present chest non-tender, lungs clear, normal breath sounds and no resp distress Routine Cardiovascular Exam Cardiovascular: Present RRR Routine Abdominal Exam Abdominal: Present soft and normoactive bowel sounds Routine Extremities Exam Extremities: Present full ROM Routine Skin Exam Skin: Present intact, dry and warm Routine Neurological Exam Neurological: Present alert, oriented X3 and CN II-XII intact Routine Psychiatric Exam Psychiatric: Present normal affect and normal thought process Results Labs 12/08/24 05:27 12/08/24 05:27 Labs: Short CBC 12/06/24 12/07/24 Range/Units 22:10 04:48 WBC 14.0 H D (3.8-10.6) Thou/mm3 Hgb 9.9 L D 10.2 L (13.5-16.0) g/dL Hct 27.2 L 29.8 L (41.0-53.0) % Plt Count 249 D (140-440) Thou/mm3 BMP 12/07/24 04:48 Sodium 135 L Potassium 4.4 Chloride 104 Carbon Dioxide 19.3 L BUN 21 Creatinine 1.0 Glucose 117 H Calcium 8.1 L Liver Function 12/07/24 Range/Units 04:48 Total Bilirubin 1.5 H D (0.3-1.2) mg/dL AST 32 (0-34) U/L ALT 28 (10-49) U/L Alkaline Phosphatase 76 D (46-116) U/L Albumin 3.3 L D (3.4-4.8) gm/dL Assessment and Plan Assessment and plan (1) Upper GI bleed: Status: Acute (2) Gravely disabled: Status: Acute (3) AMS (altered mental status): Status: Acute (4) Rapid atrial fibrillation: Status: Acute Additional Assessment & Plan Additional Plan: start amiodarone for chemical cardioversion as its a new onset afib likely alfonso of conversion to SR is high echo shows normnal EF anticoagulation contraindcated
[2024-12-07] MEDS: cefTRIAXone/D5w 1gm IV premix 1 GM/50 ML BAG IV (12:33)
--- NOTE | 2024-12-07 13:18 | PD.RESPRO ---
Documentation for date of: 12/07/24 Subjective Subjective Interval history: Patient seen and examined at bedside. Patient is nonverbal, has no current complaints, heart rate in sinus rhythm. Patient had EGD done yesterday shows large GE junction Denise-Espinosa tear, received epi thermocoagulation and clot retrieval with endoclips as intervention from gastroenterology. Was started on octreotide infusion and Protonix infusion by GI, repeat EGD in 48 hours Patient had episode of atrial fibrillation with heart rate in 170s last night, was given Dilt push and converted back to sinus rhythm Consulted cardiology, ordered echocardiogram, TSH and free T4 Called [facility] talked to nurse Radha she reported that patient had 2 episodes of bloody emesis. Reports that patient does have history of atrial fibrillation, was tolerating tube feeds well in the skilled nursing, PEG tube was well-functioning. Exam Vital Signs Temp Pulse Resp BP Pulse Ox O2 Del Method O2 Flow Rate 97.5 F 103 H 27 H 110/68 98 Room Air 3 12/07/24 12:00 12/07/24 12:12/07/24 12:12/07/24 12:12/07/24 12:12/07/24 12:12/06/24 20:30 Narrative Exam General: Nonverbal, no acute distress, cachectic Eyes: PERRL, EOMI. Anicteric Ears: No visible ear discharge Nose: No nasal discharge. Mouth/Throat: Dry mucous membranes, no redness, no lesions. Neck: Neck supple, non-tender, no cervical lymphadenopathy. Lungs: Clear DREAD to auscultation and percussion, No accessory muscle use. Cardio: Normal S1/S2, regular rhythm, no murmurs, no JVD Abdomen: Soft, non-tender, no palpable masses, peristalsis present, no guarding or rebound, PEG tube noted. Abdominal binder noted. Extremities: Symmetrical, R UE contracture, no peripheral edema , non-tender, peripheral pulses presents. Skin: No rashes, no lesions, warm to touch. Neuro: R side hemiparesis, L side able to move w/o difficulty, nonverbal and not able to follow commands. Objective Labs 12/07/24 04:48 12/07/24 04:48 Labs: Laboratory Results - last 24 hr 12/06/24 12/07/24 22:10 04:48 WBC 14.0 H D RBC 3.50 L Hgb 9.9 L D 10.2 L Hct 27.2 L 29.8 L MCV 85 MCH 29.1 MCHC 34.2 RDW Std Deviation 47.1 H Plt Count 249 D Neut % (Auto) 77 Lymph % (Auto) 10 [place] % (Auto) 11 Eos % (Auto) 2 Baso % (Auto) 0 Neut # (Auto) 10.7 H Lymph # (Auto) 1.5 [place] # (Auto) 1.5 H Eos # (Auto) 0.2 Baso # (Auto) 0.1 Immature Gran # (Auto) 0.07 H Absolute Nucleated RBC 0.00 Immature Gran % 1 H Nucleated RBC % 0 Sodium 135 L Potassium 4.4 Chloride 104 Carbon Dioxide 19.3 L Anion Gap 12 BUN 21 Creatinine 1.0 Estim Creat Clear Calc 59.2 L eGFR > 60 BUN/Creatinine Ratio 21 H Glucose 117 H Calculated Osmolality 274 L Calcium 8.1 L Corrected Calcium 8.7 Phosphorus 2.9 Magnesium 1.9 Total Bilirubin 1.5 H D AST 32 ALT 28 Alkaline Phosphatase 76 D Total Protein 5.6 L Albumin 3.3 L D Globulin 2.3 Albumin/Globulin Ratio 1.4 Triglycerides 34 Cholesterol 96 L LDL Cholesterol, Calc 46 HDL Cholesterol 43 Cholesterol/HDL Ratio 2.2 L Blood Type A Positive Antibody Screen NEGATIVE Blood Bank Wristband ID Yes Quality Measures Quality Measures sepsis Current suspected stage: ruled out Possible source: genitourinary Blood cultures ordered: yes Antibiotic ordered: Yes and none Advance care planning discussed with:: patient Assessment & Plan Assessment Current Active Medications: Generic Name Dose Route Start Last Admin Trade Name Freq PRN Reason Stop Dose Admin Acetaminophen 650 mg 12/06/24 06:03 Acetaminophen 325 Mg Tablet PO 01/05/25 06:02 Q6H PRN Fever >100.4 Hydrocodone Bitart/Acetaminophen 1 tab 12/06/24 06:03 Hydrocodone/Apap 5/325 Tablet PO 12/11/24 06:02 Q4HR PRN PAIN SCALE 4-6 (Moderate Olanzapine 5 mg/ Sterile Water 0 mg 12/06/24 12:14 2.1 ml IM [id number] PRN Severe Agitation Octreotide Acetate 1,000 mcg/ 102 mls @ 5.1 mls/hr 12/06/24 20:29 12/06/24 22:56 Sodium Chloride IV 12/11/24 20:29 50 mcg/hr .Q20H AMY 5.1 mls/hr Administration Protocol 50 MCG/HR Pantoprazole Sodium 80 mg in 100 mls @ 10 mls/hr 12/06/24 20:30 12/07/24 06:08 Protonix/Ns 80mg Iv Premix IV 12/09/24 18:29 10 mls/hr Q10H AMY Administration Ceftriaxone Sodium/Dextrose 1 gm in 50 mls @ 100 mls/hr 12/07/24 13:00 12/07/24 12:33 Rocephin/D5w 1gm Iv Premix IV 12/14/24 12:59 100 mls/hr QDAY AMY Administration Ondansetron HCl 4 mg 12/06/24 06:03 Ondansetron Inj 2 Mg/Ml Inj 2 Ml IVP 01/05/25 06:02 Q6H PRN NAUSEA OR VOMITING Protocol Plan Summary: Mr. Doan is a 69-year-old male with past medical history of CVA with residual right-sided hemiparesis, status post PEG tube placement, hypertension, hyperlipidemia, iliofemoral bypass, BPH, and dementia (nonverbal) was admitted to the hospital 12/06/2024 for pyelonephritis and upper GI bleed. 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 PEG tube fell functioning at the facility per facility nurse. Hemoglobin was stable at 13.2 on presentation No acute signs of bleeding EGD findings 12/06 - Large GE junction Denise-Espinosa tear with large blood clot and active bleeding status post epinephrine injection, thermocoagulation and clot removal with endoclips placement Plan: -Continue Protonix gtt. -Continue octreotide gtt. -Repeat endoscopy in 48 hours per gastroenterology -GI consulted, appreciate recommendations -Will transfer hemoglobin less than 7 -Will continue to monitor -Referral to registered dietitian #Right pyelonephritis #Cystitis # Leukocytosis #1/2 GPC bacteremia, possible contamination Patient came in from [facility] and was found to have right pyelonephritis and cystitis on abdomen/pelvis CT UA was negative for any bacteria Patient does have a leukocytosis of 20.6, but no fevers. Plan: -Antibiotic therapy de-escalated to IV ceftriaxone, no overnight fevers -Continue IV fluids -Will follow urine culture -Will follow blood cultures #Atrial fibrillation with rapid ventricular response, resolved #Atrial fibrillation Patient has known history of atrial fibrillation per nurse at facility patient on Eliquis and metoprolol tartrate 12.5 twice daily, had an episode of A-fib with RVR heart rate 170 post EGD, was given x 1 diltiazem, x 1 metoprolol tartrate and patient converted back to sinus rhythm Previous echo 2022 shows Normal LV size and function, EF 55 to 60%, positive bubble study. - Consulted cardiology, appreciate recommendations - Ordered echocardiogram - Will consider amiodarone drip if patient develops A-fib with RVR - Hold anticoagulation in setting of GI bleed - Keep potassium more than 4 and magnesium more than 2 #Left common iliac artery aneurysm, 1.9 cm Abdomen/pelvis CT showed aneurysmal dilation of the left common iliac artery measuring 1.9 cm Patient is status post iliofemoral bypass by history on chart review -Outpatient follow-up Chronic diseases: #Hx of CVA with residual right-sided hemiparesis #Hx of hypertension #Hx of hyperlipidemia #Hx of dementia (nonverbal) #BPH #COPD/asthma Currently PEG tube is dislodged, currently n.p.o. DuoNebs as needed Disposition: Telemetry, large active Denise-Espinosa tear Diet: NPO, per GI recommendations GI prophylaxis: protonix drip DVT prophylaxis: SCDs Code: DNR/DNI Case discussed with Attending Dr. Guillen. Ghulam Lozano PGY1 Disclaimer: This note was dictated by speech recognition. Minor errors in geriatric aide may be present due to voice recognition software. Attending Provider Attestation/Addendum I have discussed and was present for the essential components of the history, physical examination, diagnosis, and treatment plan with the resident. I agree with the patient's care as documented by the resident and amended herein by me. Bertram Guillen DO. Patient seen and evaluated this AM. No acute events overnight, hemoglobin stable. For Denise-Espinosa tear, will need repeat endoscopy in 48 hours, will continue octreotide, Protonix, ceftriaxone for now. Will continue to monitor closely. Gastroenterology consulted, appreciate recommendations. Echo has been ordered and is also pending Although this document has been carefully reviewed, there may still be some phonetic and other typographical errors. These errors are purely grammatical due to imperfections in the software program and should not be construed in any way to compromise the substance of the patient's medical care during this visit.
--- NOTE | 2024-12-07 13:26 | ECHO_ITS ---
Transthoracic Echo Report Ht (in): 68 Wt (lb): 132 Exam Location: Echo Lab Status: Inpatient Vice President Compliance: Margaret Watts Indications: Procedure Performed: BP: 117 / 75 HR: 70 Rhythm: Atrial fibrillation Technical Quality: Technically difficult study MEASUREMENTS (Male / Female) Normal Values 2D ECHO LV Diastolic Diameter PLAX 4.4 cm 4.2 - 5.9 / 3.9 - 5.3 cm LV Systolic Diameter PLAX 2.8 cm IVS Diastolic Thickness 1.2 cm 0.6 - 1.0 / 0.6 - 0.9 cm LVPW Diastolic Thickness 1.1 cm 0.6 - 1.0 / 0.6 - 0.9 cm LV Relative Wall Thickness 0.5 LVOT Diameter 1.9 cm Aortic Root Diameter 3.1 cm LA Volume Index 18.1 cm?/m? 16 - 28 cm?/m? M-MODE Aortic Root Diameter MM 2.9 cm LA Systolic Diameter MM 3.4 cm LA Ao Ratio MM 1.2 AV Cusp Separation MM 2.0 cm DOPPLER AV Peak Velocity 113.5 cm/s AV Peak Gradient 5.2 mmHg AV Mean Gradient 2.5 mmHg AV Velocity Time Integral 26.3 cm LVOT Peak Velocity 82.8 cm/s LVOT Peak Gradient 2.7 mmHg LVOT Velocity Time Integral 20.2 cm LVOT Cardiac Index 2373.5 cm?/min?m? AV Area Cont Eq vti 2.2 cm? AV Area Cont Eq pk 2.1 cm? MV Area PHT 3.5 cm? MR Peak Velocity 261.0 cm/s MR Peak Gradient 27.2 mmHg Mitral E Point Velocity 72.8 cm/s Mitral A Point Velocity 89.7 cm/s Mitral E to A Ratio 0.8 LV E' Lateral Velocity 10.1 cm/s Mitral E to LV E' Lateral Ratio 7.2 LV E' Septal Velocity 6.9 cm/s Mitral E to LV E' Septal Ratio 10.6 TR Peak Velocity 249.5 cm/s TR Peak Gradient 24.9 mmHg PV Peak Velocity 103.0 cm/s PV Peak Gradient 4.2 mmHg FINDINGS Left Ventricle Normal left ventricular size, wall thickness, systolic function with no obvious regional wall motion abnormalities. The ejection fraction is visually estimated at 60-65 %. Unable to evaluate diastolic function due to atrial fibrillation. Right Ventricle The right ventricle is normal in size and systolic function. Left Atrium The left atrium is normal by two-dimensional, color flow and Doppler imaging with no structural abnormalities, no thrombus formation present. Right Atrium The right atrium is normal by two-dimensional imaging, color flow and Doppler imaging with no structural abnormalities, no thrombus formation present. Atrial Septum The interatrial septum appears normal with no evidence of a shunt. Aorta The aorta is normal by two-dimensional, color flow and Doppler interrogation. Mitral Valve The mitral valve is normal by two-dimensional, color flow and Doppler interrogation. Trace mitral regurgitation. Aortic Valve The aortic valve is trileaflet and normal by two-dimensional, color flow and Doppler interrogation. There is no significant aortic valve regurgitation. Tricuspid Valve The tricuspid valve is normal by two-dimensional, color flow and Doppler interrogation. There is trace tricuspid valve regurgitation. Pulmonic Valve The pulmonic valve is not well visualized. There is no significant pulmonic valve regurgitation. Vessels Inferior vena cava not well visualized. Pericardium The pericardium is normal by two-dimensional imaging. There is no significant pericardial effusion. CONCLUSIONS Indication: Atrial Fibrillation Normal LV size and wall thickness. Estimated EF at 60-65 %. Unable to evaluate diastolic function due to atrial fibrillation. The RV is normal in size and systolic function. Trace MR and TR. IVC not well visualized. Marco Richardson (Electronically Signed) Final Date: 08 December 2024 11:05
[2024-12-07] MEDS: OCTREOTIDE ACET INJ 1,000 MCG in SODIUM CHLORIDE 0.9% 100 ML 5.1 MCG IV (17:10)
--- NOTE | 2024-12-07 20:10 | ESPR_ITS ---
Documentation for date of: 12/07/24 Subjective Subjective Interval history: Hematocrit at 10.4 patient status post endoscopic intervention for the large Denise-Espinosa tear at the GE junction This is one of the largest year to have her seen requiring placement of endoclips after epinephrine injection and bipolar gold heater probe coagulation Exam Vital Signs Temp Pulse Resp BP Pulse Ox O2 Del Method O2 Flow Rate 97.7 F 82 18 117/75 96 Room Air 3 12/07/24 16:00 12/07/24 18:52 12/07/24 18:52 12/07/24 16:00 12/07/24 18:52 12/07/24 16:00 12/06/24 20:30 Objective Labs 12/07/24 04:48 12/07/24 04:48 Labs: Laboratory Results - last 24 hr 12/06/24 12/07/24 22:10 04:48 WBC 14.0 H D RBC 3.50 L Hgb 9.9 L D 10.2 L Hct 27.2 L 29.8 L MCV 85 MCH 29.1 MCHC 34.2 RDW Std Deviation 47.1 H Plt Count 249 D Neut % (Auto) 77 Lymph % (Auto) 10 [place]y % (Auto) 11 Eos % (Auto) 2 Baso % (Auto) 0 Neut # (Auto) 10.7 H Lymph # (Auto) 1.5 [place]y # (Auto) 1.5 H Eos # (Auto) 0.2 Baso # (Auto) 0.1 Immature Gran # (Auto) 0.07 H Absolute Nucleated RBC 0.00 Immature Gran % 1 H Nucleated RBC % 0 Sodium 135 L Potassium 4.4 Chloride 104 Carbon Dioxide 19.3 L Anion Gap 12 BUN 21 Creatinine 1.0 Estim Creat Clear Calc 59.2 L eGFR > 60 BUN/Creatinine Ratio 21 H Glucose 117 H Calculated Osmolality 274 L Calcium 8.1 L Corrected Calcium 8.7 Phosphorus 2.9 Magnesium 1.9 Total Bilirubin 1.5 H D AST 32 ALT 28 Alkaline Phosphatase 76 D Total Protein 5.6 L Albumin 3.3 L D Globulin 2.3 Albumin/Globulin Ratio 1.4 Triglycerides 34 Cholesterol 96 L LDL Cholesterol, Calc 46 HDL Cholesterol 43 Cholesterol/HDL Ratio 2.2 L Blood Type A Positive Antibody Screen NEGATIVE Blood Bank Wristband ID Yes Impressions Impression: Large Denise-Espinosa tear GE junction status post endoscopic intervention Repeat endoscopy tomorrow N.p.o. midnight tonight Assessment & Plan A&P Narrative # Hematemesis # Dislodged PEG tube and malfunctioning PEG tube plan fiberoptic esophagogastroduodenoscopy with possible biopsy possible therapeutic intervention under intravenous moderate sedation Consent obtained from the appropriate authorities and will proceed with the procedure Other medical problems include CVA right sided motor weakness Essential hypertension Hyperlipidemia BPH Dementia Thank you very much for the opportunity to participate in the care of this patient Time Spent With Patient Time: Total time spent is greater than 50% in coordination of care (as documented) at patient's floor/unit and/or counseling patient:
[2024-12-07 21:00] LABS: Vancomycin,Trough 5.3 mcg/mL (5.0-10.0)
[2024-12-08] VITALS (20 sets, daily range): BP systolic 82–167; BP diastolic 58–119; PULSE 77–165; RESP 14–96; TEMP 36.1–36.8; O2SAT 95–98
[2024-12-08] MEDS: PANTOPRAZOLE/NS 80MG IV PREMIX 80 MG/100 ML BAG 10 MG IV ×3 (03:18→23:58)
--- NOTE | 2024-12-08 04:49 | EKG_ITS ---
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
[2024-12-08] MEDS: DILTIAZEM INJ 5 MG/ML VIAL 5 ML 15 MG IV ×3 (04:56→23:57)
--- NOTE | 2024-12-08 05:17 | EVENTNT_ITS ---
Documentation for date of: 12/08/24 Event Note Event Note: Room: [facility] Time: 0503 Reason for Call: Heart rate in the 170s-180s Patient presentation: Patient presented with vitals: blood pressure 89/52, heart rate 170s?180s saturating 98% on room air, looked dry on physical exam with irr egularly irregular heart rate, is currently NPO for possible EGD. Patient is nonverbal and unable to verbalize complaints. Assessment: A-fib with RVR New orders: EKG, diltiazem 15 mg x 2 IV, 500 mL bolus lactated Ringer's solution Case discussed with my attending Dr. Milo Woodall MD PGY-1 Disclaimer: Despite multiple revisions, due to the dictation software being used, the document bellow may not be free of grammatical errors including phonetic/typographic errors. However, this does not deter from our commitment to providing health care in the patient's best interest in mind.
[2024-12-08] MEDS: RINGERS LACTATED 1000 ML 1,000 ML 999 ML IV (05:18)
[2024-12-08 05:44] LABS: Basophils # (Auto) 0.1 Thou/mm3 (0.0-0.2); Basophils % (Auto) 1 % (0-2.5); Eosinophils # (Auto) 0.6 Thou/mm3 (0.0-0.5); Eosinophils % (Auto) 5 % (0-10); Hematocrit 32.8 % (41.0-53.0); Hemoglobin 11.3 g/dL (13.5-16.0); Immature Granulocytes % (Auto) 0 % (0-0); Immature Granulocytes Auto 0.05 Thou/mm3 (0.00-0.00); Lymphocytes % (Auto) 15 % (10-50); Mean Corpuscular HGB Conc 34.5 g/dl (31.0-37.0); Mean Corpuscular Hemoglobin 28.8 pg (25.0-35.0); Mean Corpuscular Volume 84 fL (80-100); Monocytes # (Auto) 1.6 Thou/mm3 (0.0-0.8); Monocytes % (Auto) 13 % (0-12); Neutrophils # (Auto) 8.7 Thou/mm3 (1.8-7.7); Neutrophils % (Auto) 67 % (37-80); Nucleated Red Blood Cell % 0 /100 WBC (0); Platelet Count 291 Thou/mm3 (140-440); RDW Standard Deviation 45.2 fL (35.1-43.9); Red Blood Count 3.92 Miln/mm3 (4.50-5.90); White Blood Count 13.1 Thou/mm3 (3.8-10.6)
[2024-12-08 05:53] LABS: Glucose Estimated Average 105 mg/dL (80-131); Hemoglobin A1C 5.3 % Hgb (4.8-6.0)
[2024-12-08 06:06] LABS: Alanine Aminotransferase 29 U/L (10-49); Albumin, Serum 3.6 gm/dL (3.4-4.8); Albumin/Globulin Ratio 1.3 (1.2-2.2); Alkaline Phosphatase 78 U/L (46-116); Anion Gap 13 (7-16); Aspartate Amino Transferase 25 U/L (0-34); BUN/Creatinine Ratio 12 Ratio (12-20); Bilirubin,Total 1.6 mg/dL (0.3-1.2); Blood Urea Nitrogen 11 mg/dL (9-23); Calcium 8.5 mg/dL (8.3-10.6); Calcium (Corrected) 8.8 mg/dL (8.5-10.1); Carbon Dioxide 20.2 mMol/L (20.0-31.0); Chloride 101 mMol/L (98-107); Creatinine (Component) 0.9 mg/dL (0.6-1.3); Estimated Creatinine Clearance 65.8 mL/min (>60); Free T4 (Free Thyroxine) 1.31 ng/dL (0.89-1.76); Globulin 2.7 gm/dL (2.3-3.5); Glucose 115 mg/dL (74-106); Magnesium 1.9 mg/dL (1.6-2.6); Osmolality,Calculated 268 (275-295); Potassium 3.6 mMol/L (3.4-5.1); Sodium 134 mMol/L (136-145); Thyroid Stimulating Hormone 0.25 uIU/mL (0.55-4.78); Total Protein 6.3 gm/dL (5.7-8.2); eGFR > 60 See Note
--- NOTE | 2024-12-08 06:31 | PC.NURSE ---
RN CONTACTED DAUGHTER HELEN AND NOTIFIED OF RHYTHM CHANGE TO ATRIAL FIB, PLAN OF EGD TODAY BY DR. GAN AND HELEN CONSENTED FOR EGD.
--- NOTE | 2024-12-08 08:49 | PC.SS ---
Follow up note: AFIB last night. Managing AFIB. Repeat EGD. Pt will return to [facility] upon dc.
[2024-12-08] MEDS: cefTRIAXone/D5w 1gm IV premix 1 GM/50 ML BAG IV (08:50)
[2024-12-08] MEDS: POTASSIUM CHL 10 mEq IVPB 10 MEQ/100 ML BAG 100 MEQ IV ×4 (08:55→12:35)
[2024-12-08] MEDS: Magnesium Sulfate 2 GM Ivpb 2 GM/50 ML BAG IV (09:38)
--- NOTE | 2024-12-08 09:38 | PC.SS ---
Pt is from [facility]. Pt is alert/oriented. Pt was admitted for Hematemesis, Pyelonephritis. SS spoke to Tonya from 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 Pt is a 2 person assist. Pt transfers into wheelchair. Pt requires assistance with ADLs. Per [facility] patient's dtr, Leida Davisaniel is patient's medical decision maker if she is unable. Pt will return to [facility] upon dc and will require transportation. D/C plan: Return to [facility], [facility] Next of Kin: Leida Ortiz, daughter, phone# [phone] PCP: Dr. Cooney
--- NOTE | 2024-12-08 13:26 | ESPR_ITS ---
Documentation for date of: 12/08/24 Subjective Subjective Interval history: Patient seen and examined at bedside. Currently nonverbal, n.p.o. Patient had an episode of A-fib with RVR overnight was given IV diltiazem 30, heart rate controlled this morning. Patient has known history of atrial fibrillation, started on metoprolol 1 mg every 6 hours IV pushes. Cardiology following, echocardiogram shows normal LV size and wall thickness, EF 60 to 65% Potassium and magnesium replaced. Gastroenterology is following, hemoglobin is stable. Will continue octreotide drip and Protonix drip. Patient scheduled for EGD with gastroenterology. Exam Vital Signs Temp Pulse Resp BP Pulse Ox O2 Del Method O2 Flow Rate 97.0 F 85 14 99/76 96 Room Air 3 12/08/24 08:00 12/08/24 09:59 12/08/24 09:59 12/08/24 08:00 12/08/24 09:59 12/08/24 08:00 12/06/24 20:30 Narrative Exam General: Nonverbal, no acute distress, cachectic Eyes: PERRL, EOMI. Anicteric Ears: No visible ear discharge Nose: No nasal discharge. Mouth/Throat: Dry mucous membranes, no redness, no lesions. Neck: Neck supple, non-tender, no cervical lymphadenopathy. Lungs: Clear DREAD to auscultation and percussion, No accessory muscle use. Cardio: Normal S1/S2, regular rhythm, no murmurs, no JVD Abdomen: Soft, non-tender, no palpable masses, peristalsis present, no guarding or rebound, PEG tube noted. Abdominal binder noted. Extremities: Symmetrical, R UE contracture, no peripheral edema , non-tender, peripheral pulses presents. Skin: No rashes, no lesions, warm to touch. Neuro: R side hemiparesis, L side able to move w/o difficulty, nonverbal and not able to follow commands. Objective Labs 12/08/24 05:27 12/08/24 05:27 Labs: Laboratory Results - last 24 hr 12/07/24 12/08/24 20:31 05:27 WBC 13.1 H RBC 3.92 L Hgb 11.3 L Hct 32.8 L MCV 84 MCH 28.8 MCHC 34.5 RDW Std Deviation 45.2 H Plt Count 291 D Neut % (Auto) 67 Lymph % (Auto) 15 [place] % (Auto) 13 H Eos % (Auto) 5 Baso % (Auto) 1 Neut # (Auto) 8.7 H Lymph # (Auto) 2.0 [place] # (Auto) 1.6 H Eos # (Auto) 0.6 H Baso # (Auto) 0.1 Immature Gran # (Auto) 0.05 H Absolute Nucleated RBC 0.00 Immature Gran % 0 Nucleated RBC % 0 Sodium 134 L Potassium 3.6 D Chloride 101 Carbon Dioxide 20.2 Anion Gap 13 BUN 11 Creatinine 0.9 Estim Creat Clear Calc 65.8 eGFR > 60 BUN/Creatinine Ratio [address] Glu mg/dL 105 Hemoglobin A1c 5.3 Calculated Osmolality 268 L Calcium 8.5 Corrected Calcium 8.8 Phosphorus 3.0 Magnesium 1.9 Total Bilirubin 1.6 H AST 25 ALT 29 Alkaline Phosphatase 78 Total Protein 6.3 Albumin 3.6 Globulin 2.7 Albumin/Globulin Ratio 1.3 TSH 0.25 L Free T4 1.31 Vancomycin Trough 5.3 Quality Measures Quality Measures sepsis Current suspected stage: ruled out Possible source: genitourinary Blood cultures ordered: yes Antibiotic ordered: Yes and none Advance care planning discussed with:: patient Assessment & Plan Assessment Current Active Medications: Generic Name Dose Route Start Last Admin Trade Name Freq PRN Reason Stop Dose Admin Acetaminophen 650 mg 12/06/24 06:03 Acetaminophen 325 Mg Tablet PO 01/05/25 06:02 Q6H PRN Fever >100.4 Hydrocodone Bitart/Acetaminophen 1 tab 12/06/24 06:03 Hydrocodone/Apap 5/325 Tablet PO 12/11/24 06:02 Q4HR PRN PAIN SCALE 4-6 (Moderate Albuterol/Ipratropium 3 ml 12/07/24 17:48 Albuterol/Ipratropium (Duoneb) Rt Shae 3 Ml Nebu INH 01/06/25 17:47 Q2HR PRN SHORTNESS OF BREATH OR WHEEZE Octreotide Acetate 1,000 mcg/ 102 mls @ 5.1 mls/hr 12/06/24 20:29 12/07/24 17:10 Sodium Chloride IV 12/11/24 20:29 50 mcg/hr .Q20H AMY 5.1 mls/hr Administration Protocol 50 MCG/HR Pantoprazole Sodium 80 mg in 100 mls @ 10 mls/hr 12/06/24 20:30 12/08/24 11:45 Protonix/Ns 80mg Iv Premix IV 12/09/24 18:29 10 mls/hr Q10H AMY Administration Ceftriaxone Sodium/Dextrose 1 gm in 50 mls @ 100 mls/hr 12/07/24 13:00 12/08/24 08:50 Rocephin/D5w 1gm Iv Premix IV 12/14/24 12:59 100 mls/hr QDAY AMY Administration Metoprolol Tartrate 1 mg 12/08/24 13:30 Metoprolol Tartrate Inj 1 Mg/Ml Amp 5 Ml IVP 01/07/25 13:29 Q6H AMY Ondansetron HCl 4 mg 12/06/24 06:03 Ondansetron Inj 2 Mg/Ml Inj 2 Ml IVP 01/05/25 06:02 Q6H PRN NAUSEA OR VOMITING Protocol Plan Summary: Mr. Doan is a 69-year-old male with past medical history of CVA with residual right-sided hemiparesis, status post PEG tube placement, hypertension, hyperlipidemia, iliofemoral bypass, BPH, and dementia (nonverbal) was admitted to the hospital 12/06/2024 for pyelonephritis and upper GI bleed. 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 PEG tube fell functioning at the facility per facility nurse. Hemoglobin was stable at 13.2 on presentation No acute signs of bleeding EGD findings 12/06 - Large GE junction Denise-Espinosa tear with large blood clot and active bleeding status post epinephrine injection, thermocoagulation and clot removal with endoclips placement PEG tube was replaced by gastroenterology. Plan: -Continue Protonix gtt. -Continue octreotide gtt. -Repeat endoscopy in 48 hours per gastroenterology, will keep n.p.o. -GI consulted, appreciate recommendations -Will transfer hemoglobin less than 7 -Will continue to monitor -Referral to registered dietitian #Right pyelonephritis #Cystitis # Leukocytosis #1/2 GPC bacteremia, possible contamination Patient came in from [facility] and was found to have right pyelonephritis and cystitis on abdomen/pelvis CT UA was negative for any bacteria Patient does have a leukocytosis of 20.6, but no fevers. Plan: -Continue IV ceftriaxone -Will follow urine culture -Will follow blood cultures #Atrial fibrillation with rapid ventricular response, resolved #Atrial fibrillation Patient has known history of atrial fibrillation per nurse at facility patient on Eliquis and metoprolol tartrate 12.5 twice daily, had an episode of A-fib with RVR heart rate 170 post EGD, was given x 1 diltiazem, x 1 metoprolol tartrate and patient converted back to sinus rhythm Previous echo 2022 shows Normal LV size and function, EF 55 to 60%, positive bubble study. TTE November 2025: Normal LV size and wall thickness. Estimated EF at 60-65 %. Unable to evaluate diastolic function due to atrial fibrillation. The RV is normal in size and systolic function. Trace MR and TR. IVC not well visualized. - Consulted cardiology, appreciate recommendations - Started on metoprolol 1 mg every 6 hours IV pushes - Hold anticoagulation in setting of GI bleed - Keep potassium more than 4 and magnesium more than 2 #Left common iliac artery aneurysm, 1.9 cm Abdomen/pelvis CT showed aneurysmal dilation of the left common iliac artery measuring 1.9 cm Patient is status post iliofemoral bypass by history on chart review -Outpatient follow-up Chronic diseases: #Hx of CVA with residual right-sided hemiparesis #Hx of hypertension #Hx of hyperlipidemia #Hx of dementia (nonverbal) #BPH #COPD/asthma Currently PEG tube is dislodged, currently n.p.o. DuoNebs as needed Disposition: Telemetry, large active Denise-Espinosa tear Diet: NPO, scheduled for repeat EGD, on maintenance fluid D5 LR GI prophylaxis: protonix drip DVT prophylaxis: SCDs Code: DNR/DNI Case discussed with Attending Dr. Guillen. Ghulam Lozano PGY1 Disclaimer: This note was dictated by speech recognition. Minor errors in supervisor cell efficiency may be present due to voice recognition software. Attending Provider Attestation/Addendum I have discussed and was present for the essential components of the history, physical examination, diagnosis, and treatment plan with the resident. I agree with the patient's care as documented by the resident and amended herein by me. Bertram Guillen DO. Patient seen and evaluated this AM. No acute events overnight, vital signs stable, patient afebrile, hemoglobin stable at 11. CMP largely unremarkable, T. bili 1.6. Echo pending, urine cultures were demonstrating group D Enterococcus x 1 set in the anaerobic bottle, no other sources of Enterococcus have been identified, will hold off on antimicrobials to cover this however will order repeat cultures at this time and treat if positive. Will likely get infectious disease on board if positive. Will continue octreotide and pantoprazole, repeat EGD scheduled for this evening, appreciate gastroenterology recommendations. Although this document has been carefully reviewed, there may still be some phonetic and other typographical errors. These errors are purely grammatical due to imperfections in the software program and should not be construed in any way to compromise the substance of the patient's medical care during this visit.
[2024-12-08] MEDS: OCTREOTIDE ACET INJ 1,000 MCG in SODIUM CHLORIDE 0.9% 100 ML 5.1 MCG IV (14:05)
[2024-12-08] MEDS: METOPROLOL TARTRATE INJ 1 MG/ML AMP 5 ML IVP ×2 (14:13→20:04)
--- NOTE | 2024-12-08 14:50 | PC.NURSE ---
patient is very agitated restless trying to get out of bed, called dr. jung and made aware.
[2024-12-08] MEDS: LORazepam 2 MG/ML VIAL 1 MG IVP (14:57)
--- NOTE | 2024-12-08 16:16 | PC.NURSE ---
ordered amiodarone drip. patient already on normal sinus rhythm, called and made aware, new order to start on amiodarone 200mg po daily ,cancel amiodarone drip.
[2024-12-08] MEDS: RINGERS LACTATED 1000 ML 1,000 ML 125 ML IV (18:09)
[2024-12-08] MEDS: OLANZapine INJ 5 MG, Sterile Water 2.1 ML IM (20:02)
[2024-12-08] MEDS: DEXTROSE 5%-LACTATED RINGERS 1,000 ML 60 ML IV (20:21)
--- NOTE | 2024-12-08 23:49 | PC.NURSE ---
patient went into afib rvr, notified Dr. Hogue and new order for diltazem push
[2024-12-09] VITALS (12 sets, daily range): BP systolic 104–158; BP diastolic 65–107; PULSE 55–174; RESP 14–95; TEMP 36.3–36.8; O2SAT 92–100; BMI 19.5
[2024-12-09] MEDS: AMIODARONE 150 MG IVPB 150 MG/100 ML BAG 600 MG IV (00:15)
--- NOTE | 2024-12-09 00:24 | EKG_ITS ---
[facility] Test Date: 2024-12-09 Pat Name: LARRY BAE Department: [facility] [place] Gender: Male [employer] Supervisor: GEOVANNA : 1955 Requested By: Mónica Hogue Order Number: [id number] Reading MD: Mónica Hogue Measurements Intervals [place] Rate: 151 P: VT: QRS: 100 QRSD: 82 T: 37 QT: 295 QTc: 468 Interpretive Statements ATRIAL FIBRILLATION WITH RAPID VENTRICULAR RESPONSE BORDERLINE RIGHT AXIS DEVIATION ABNORMAL RHYTHM ECG Compared to ECG 12/08/2024 05:03:34 ST (T wave) deviation no longer present /store/[id number].pdf
--- NOTE | 2024-12-09 00:32 | PD.RESEVENT ---
Documentation for date of: 12/09/24 Event Note Event Note: Rapid response Called at approximately 00:18 Rapid response called for atrial fibrillation with RVR, heart rate 170s. Patient has a past medical history of dementia (nonverbal). Vitals during rapid response heart rate 160s, blood pressure 104/67, SpO2 94%. Status post EGD on 12/08/2024 noted to have endoclips at GE E junction and Denise-Espinosa tear that is healing on octreotide drip and pantoprazole. CHADSVASc 4 HAS BLED 5 points, given Denise-Espinosa tear, no heparin or Eliquis Order: CBC, CMP, Magnesium, Phosphate, EKG, and Troponin Intervention: Amiodarone drip placed - The patient's plan was discussed with attending Dr. Rafael Hogue MD PGY1 Internal Medicine
[2024-12-09] MEDS: AMIODARONE 360 MG IVPB 360 MG/200 ML BAG 33.333 MG IV (00:39)
[2024-12-09 00:53] LABS: Basophils # (Auto) 0.1 Thou/mm3 (0.0-0.2); Basophils % (Auto) 0 % (0-2.5); Eosinophils # (Auto) 0.5 Thou/mm3 (0.0-0.5); Eosinophils % (Auto) 4 % (0-10); Hematocrit 33.6 % (41.0-53.0); Hemoglobin 11.9 g/dL (13.5-16.0); Immature Granulocytes % (Auto) 0 % (0-0); Immature Granulocytes Auto 0.05 Thou/mm3 (0.00-0.00); Lymphocytes % (Auto) 15 % (10-50); Mean Corpuscular HGB Conc 35.4 g/dl (31.0-37.0); Mean Corpuscular Hemoglobin 28.8 pg (25.0-35.0); Mean Corpuscular Volume 81 fL (80-100); Monocytes # (Auto) 1.6 Thou/mm3 (0.0-0.8); Monocytes % (Auto) 12 % (0-12); Neutrophils # (Auto) 9.3 Thou/mm3 (1.8-7.7); Neutrophils % (Auto) 69 % (37-80); Nucleated Red Blood Cell % 0 /100 WBC (0); Platelet Count 323 Thou/mm3 (140-440); RDW Standard Deviation 42.9 fL (35.1-43.9); Red Blood Count 4.13 Miln/mm3 (4.50-5.90); White Blood Count 13.5 Thou/mm3 (3.8-10.6)
[2024-12-09 01:15] LABS: Alanine Aminotransferase 31 U/L (10-49); Albumin, Serum 3.9 gm/dL (3.4-4.8); Albumin/Globulin Ratio 1.4 (1.2-2.2); Alkaline Phosphatase 82 U/L (46-116); Anion Gap 12 (7-16); Aspartate Amino Transferase 33 U/L (0-34); BUN/Creatinine Ratio 14 Ratio (12-20); Bilirubin,Total 1.6 mg/dL (0.3-1.2); Blood Urea Nitrogen 11 mg/dL (9-23); Calcium 9.2 mg/dL (8.3-10.6); Calcium (Corrected) 9.3 mg/dL (8.5-10.1); Carbon Dioxide 22.8 mMol/L (20.0-31.0); Chloride 98 mMol/L (98-107); Creatinine (Component) 0.8 mg/dL (0.6-1.3); Globulin 2.8 gm/dL (2.3-3.5); Glucose 146 mg/dL (74-106); Magnesium 1.9 mg/dL (1.6-2.6); Osmolality,Calculated 268 (275-295); Phosphorous 2.6 mg/dL (2.4-5.1); Potassium 3.6 mMol/L (3.4-5.1); Sodium 133 mMol/L (136-145); Total Protein 6.7 gm/dL (5.7-8.2); Troponin I < 0.020 ng/mL (0.0-0.045); eGFR > 60 See Note
--- NOTE | 2024-12-09 02:13 | PC.NURSE ---
held starting feedings as patient came in with dislodged gtube. I could not find in egd notes where the gtube was replaced or repositioned. I notified Dr. Hogue and she said to hold feedings until we get clarification.
[2024-12-09] MEDS: Magnesium Sulfate 2 GM Ivpb 2 GM/50 ML BAG IV (02:50)
[2024-12-09] MEDS: POTASSIUM CHLORIDE 10% 20 MEQ/15 ML UDC 40 MEQ GT (04:11)
[2024-12-09 06:38] LABS: Basophils # (Auto) 0.1 Thou/mm3 (0.0-0.2); Basophils % (Auto) 1 % (0-2.5); Eosinophils # (Auto) 0.3 Thou/mm3 (0.0-0.5); Eosinophils % (Auto) 3 % (0-10); Hemoglobin 11.6 g/dL (13.5-16.0); Immature Granulocytes % (Auto) 1 % (0-0); Immature Granulocytes Auto 0.06 Thou/mm3 (0.00-0.00); Lymphocytes # (Auto) 1.2 Thou/mm3 (1.0-4.8); Lymphocytes % (Auto) 11 % (10-50); Mean Corpuscular HGB Conc 35.2 g/dl (31.0-37.0); Mean Corpuscular Hemoglobin 28.6 pg (25.0-35.0); Mean Corpuscular Volume 81 fL (80-100); Monocytes # (Auto) 1.3 Thou/mm3 (0.0-0.8); Monocytes % (Auto) 11 % (0-12); Neutrophils # (Auto) 8.6 Thou/mm3 (1.8-7.7); Neutrophils % (Auto) 74 % (37-80); Nucleated Red Blood Cell % 0 /100 WBC (0); Platelet Count 345 Thou/mm3 (140-440); RDW Standard Deviation 43.1 fL (35.1-43.9); Red Blood Count 4.06 Miln/mm3 (4.50-5.90); White Blood Count 11.5 Thou/mm3 (3.8-10.6)
[2024-12-09 07:08] LABS: Alanine Aminotransferase 30 U/L (10-49); Albumin, Serum 3.7 gm/dL (3.4-4.8); Albumin/Globulin Ratio 1.3 (1.2-2.2); Alkaline Phosphatase 79 U/L (46-116); Anion Gap 10 (7-16); Aspartate Amino Transferase 33 U/L (0-34); BUN/Creatinine Ratio 11 Ratio (12-20); Bilirubin,Total 1.1 mg/dL (0.3-1.2); Blood Urea Nitrogen 10 mg/dL (9-23); Calcium 8.6 mg/dL (8.3-10.6); Calcium (Corrected) 8.8 mg/dL (8.5-10.1); Chloride 101 mMol/L (98-107); Creatinine (Component) 0.9 mg/dL (0.6-1.3); Estimated Creatinine Clearance 65.8 mL/min (>60); Globulin 2.9 gm/dL (2.3-3.5); Glucose 145 mg/dL (74-106); Magnesium 2.4 mg/dL (1.6-2.6); Osmolality,Calculated 273 (275-295); Phosphorous 2.8 mg/dL (2.4-5.1); Potassium 4.4 mMol/L (3.4-5.1); Sodium 136 mMol/L (136-145); Total Protein 6.6 gm/dL (5.7-8.2); eGFR > 60 See Note
[2024-12-09] MEDS: AMIODARONE 360 MG IVPB 360 MG/200 ML BAG 16.667 MG IV ×2 (07:30→21:13)
[2024-12-09] MEDS: TAMSULOSIN HCL 0.4 MG CAPSULE GT (08:24)
[2024-12-09] MEDS: FOLIC ACID 1 MG TABLET GT (08:24)
[2024-12-09] MEDS: cefTRIAXone/D5w 1gm IV premix 1 GM/50 ML BAG IV (08:24)
--- NOTE | 2024-12-09 11:42 | PD.IMPROG ---
Documentation for date of: 12/09/24 Subjective Subjective Interval history: Patient had another episode of atrial fibrillation rapid Started on amiodarone drip Converted back to sinus rhythm Continue to complete the amnio drip protocol Exam Vital Signs Temp Pulse Resp BP Pulse Ox O2 Del Method O2 Flow Rate 97.9 F 80 16 134/85 H 99 Room Air 3 12/09/24 08:00 12/09/24 08:00 12/09/24 08:00 12/09/24 08:00 12/09/24 08:00 12/09/24 08:00 12/06/24 20:30 Routine HEENT Exam Head: Present normocephalic and atraumatic Eye: Present EOMI and PERRL ENT: Present mucous membranes moist Routine Neck Exam Neck: Present supple and trachea midline Routine Respiratory Exam Respiratory: Present chest non-tender, lungs clear, normal breath sounds and no resp distress Routine Cardiovascular Exam Cardiovascular: Present RRR Routine Abdominal Exam Abdominal: Present soft and normoactive bowel sounds Routine Extremities Exam Extremities: Present full ROM Routine Skin Exam Skin: Present intact, dry and warm Routine Neurological Exam Neurological: Present alert, oriented X3 and CN II-XII intact Routine Psychiatric Exam Psychiatric: Present normal affect and normal thought process Objective Labs 12/09/24 06:02 12/09/24 06:02 Labs: Laboratory Results - last 24 hr 12/09/24 12/09/24 00:42 06:02 WBC 13.5 H 11.5 H RBC 4.13 L 4.06 L Hgb 11.9 L 11.6 L Hct 33.6 L 33.0 L MCV 81 81 MCH 28.8 28.6 MCHC 35.4 35.2 RDW Std Deviation 42.9 43.1 Plt Count 323 D 345 Neut % (Auto) 69 74 Lymph % (Auto) 15 11 [place] % (Auto) 12 11 Eos % (Auto) 4 3 Baso % (Auto) 0 1 Neut # (Auto) 9.3 H 8.6 H Lymph # (Auto) 2.0 1.2 [place] # (Auto) 1.6 H 1.3 H Eos # (Auto) 0.5 0.3 Baso # (Auto) 0.1 0.1 Immature Gran # (Auto) 0.05 H 0.06 H Absolute Nucleated RBC 0.00 0.00 Immature Gran % 0 1 H Nucleated RBC % 0 0 Sodium 133 L 136 Potassium 3.6 4.4 D Chloride 98 101 Carbon Dioxide 22.8 25.0 Anion Gap 12 10 BUN 11 10 Creatinine 0.8 0.9 Estim Creat Clear Calc 74.0 65.8 eGFR > 60 > 60 BUN/Creatinine Ratio 14 11 L Glucose 146 H 145 H Calculated Osmolality 268 L 273 L Calcium 9.2 8.6 Corrected Calcium 9.3 8.8 Phosphorus 2.6 2.8 Magnesium 1.9 2.4 Total Bilirubin 1.6 H 1.1 D AST 33 33 ALT 31 30 Alkaline Phosphatase 82 79 Troponin I < 0.020 Total Protein 6.7 6.6 Albumin 3.9 3.7 Globulin 2.8 2.9 Albumin/Globulin Ratio 1.4 1.3 Assessment & Plan A&P Narrative start amiodarone for chemical cardioversion as its a new onset afib likely alfonso of conversion to SR is high echo shows normnal EF anticoagulation contraindcated Time Spent With Patient Time: Total time spent is greater than 50% in coordination of care (as documented) at patient's floor/unit and/or counseling patient:
--- NOTE | 2024-12-09 13:11 | ESPR_ITS ---
Documentation for date of: 12/09/24 Subjective Subjective Interval history: Patient seen and examined at bedside, lying comfortably in bed. Patient had repeat endoscopy yesterday, showed endoclips at GE junction, no bleeding and mass. Tear noted to be healing nicely Patient was started on PEG tube feeding, received IV Protonix, will be transition to p.o. Protonix overnight today. Octreotide discontinued. Patient had rapid response overnight post EGD for A-fib with RVR, patient was started on amiodarone drip by night team. Cardiology consult consulted, recommends continuing amiodarone drip. Will transition patient to p.o. amiodarone in a.m. 1/ blood cultures positive for Enterococcus group D, ordered repeat blood cultures will follow?pending. Will continue to monitor patient. Exam Vital Signs Temp Pulse Resp BP Pulse Ox O2 Del Method O2 Flow Rate 97.9 F 80 16 134/85 H 99 Room Air 3 12/09/24 08:00 12/09/24 08:00 12/09/24 08:00 12/09/24 08:00 12/09/24 08:00 12/09/24 08:00 12/06/24 20:30 Narrative Exam General: Nonverbal, no acute distress, cachectic Eyes: PERRL, EOMI. Anicteric Ears: No visible ear discharge Nose: No nasal discharge. Mouth/Throat: Dry mucous membranes, no redness, no lesions. Neck: Neck supple, non-tender, no cervical lymphadenopathy. Lungs: Clear DREAD to auscultation and percussion, No accessory muscle use. Cardio: Normal S1/S2, regular rhythm, no murmurs, no JVD Abdomen: Soft, non-tender, no palpable masses, peristalsis present, no guarding or rebound, PEG tube noted. Abdominal binder noted. Extremities: Symmetrical, R UE contracture, no peripheral edema , non-tender, peripheral pulses presents. Skin: No rashes, no lesions, warm to touch. Neuro: R side hemiparesis, L side able to move w/o difficulty, nonverbal and not able to follow commands. Objective Labs 12/09/24 06:02 12/09/24 06:02 Labs: Laboratory Results - last 24 hr 12/09/24 12/09/24 00:42 06:02 WBC 13.5 H 11.5 H RBC 4.13 L 4.06 L Hgb 11.9 L 11.6 L Hct 33.6 L 33.0 L MCV 81 81 MCH 28.8 28.6 MCHC 35.4 35.2 RDW Std Deviation 42.9 43.1 Plt Count 323 D 345 Neut % (Auto) 69 74 Lymph % (Auto) 15 11 [place] % (Auto) 12 11 Eos % (Auto) 4 3 Baso % (Auto) 0 1 Neut # (Auto) 9.3 H 8.6 H Lymph # (Auto) 2.0 1.2 [place] # (Auto) 1.6 H 1.3 H Eos # (Auto) 0.5 0.3 Baso # (Auto) 0.1 0.1 Immature Gran # (Auto) 0.05 H 0.06 H Absolute Nucleated RBC 0.00 0.00 Immature Gran % 0 1 H Nucleated RBC % 0 0 Sodium 133 L 136 Potassium 3.6 4.4 D Chloride 98 101 Carbon Dioxide 22.8 25.0 Anion Gap 12 10 BUN 11 10 Creatinine 0.8 0.9 Estim Creat Clear Calc 74.0 65.8 eGFR > 60 > 60 BUN/Creatinine Ratio 14 11 L Glucose 146 H 145 H Calculated Osmolality 268 L 273 L Calcium 9.2 8.6 Corrected Calcium 9.3 8.8 Phosphorus 2.6 2.8 Magnesium 1.9 2.4 Total Bilirubin 1.6 H 1.1 D AST 33 33 ALT 31 30 Alkaline Phosphatase 82 79 Troponin I < 0.020 Total Protein 6.7 6.6 Albumin 3.9 3.7 Globulin 2.8 2.9 Albumin/Globulin Ratio 1.4 1.3 Quality Measures Quality Measures sepsis Current suspected stage: ruled out Possible source: genitourinary Blood cultures ordered: yes Antibiotic ordered: Yes and none Advance care planning discussed with:: patient Assessment & Plan Assessment Current Active Medications: Generic Name Dose Route Start Last Admin Trade Name Freq PRN Reason Stop Dose Admin Acetaminophen 650 mg 12/06/24 06:03 Acetaminophen 325 Mg Tablet PO 01/05/25 06:02 Q6H PRN Fever >100.4 Hydrocodone Bitart/Acetaminophen 1 tab 12/06/24 06:03 Hydrocodone/Apap 5/325 Tablet PO 12/11/24 06:02 Q4HR PRN PAIN SCALE 4-6 (Moderate Albuterol/Ipratropium 3 ml 12/07/24 17:48 Albuterol/Ipratropium (Duoneb) Rt Shae 3 Ml Nebu INH 01/06/25 17:47 Q2HR PRN SHORTNESS OF BREATH OR WHEEZE Atorvastatin Calcium 40 mg 12/09/24 21:00 Atorvastatin Calcium 20 Mg Tablet GT 01/08/25 20:59 QPM AMY Folic Acid 1 mg 12/09/24 09:00 12/09/24 08:24 Folic Acid 1 Mg Tablet GT 01/08/25 08:59 1 mg QDAY AMY Administration Octreotide Acetate 1,000 mcg/ 102 mls @ 5.1 mls/hr 12/06/24 20:29 12/08/24 14:05 Sodium Chloride IV 12/11/24 20:29 50 mcg/hr .Q20H AMY 5.1 mls/hr Administration Protocol 50 MCG/HR Pantoprazole Sodium 80 mg in 100 mls @ 10 mls/hr 12/06/24 20:30 12/08/24 23:58 Protonix/Ns 80mg Iv Premix IV 12/09/24 18:29 10 mls/hr Q10H AMY Administration Ceftriaxone Sodium/Dextrose 1 gm in 50 mls @ 100 mls/hr 12/07/24 13:00 12/09/24 08:24 Rocephin/D5w 1gm Iv Premix IV 12/14/24 12:59 100 mls/hr QDAY AMY Administration Amiodarone HCl/Dextrose 360 mg in 200 mls @ 16.667 mls/hr 12/09/24 00:26 12/09/24 07:30 Nexterone Ivpb IV 12/10/24 00:25 16.667 mls/hr .Q12H AMY Administration Ondansetron HCl 4 mg 12/06/24 06:03 Ondansetron Inj 2 Mg/Ml Inj 2 Ml IVP 01/05/25 06:02 Q6H PRN NAUSEA OR VOMITING Protocol Tamsulosin HCl 0.4 mg 12/09/24 09:00 12/09/24 08:24 Tamsulosin Hcl 0.4 Mg Capsule GT 01/08/25 08:59 0.4 mg QDAY AMY Administration Plan Summary: Mr. Doan is a 69-year-old male with past medical history of CVA with residual right-sided hemiparesis, status post PEG tube placement, hypertension, hyperlipidemia, iliofemoral bypass, BPH, and dementia (nonverbal) was admitted to the hospital 12/06/2024 for pyelonephritis and upper GI bleed. 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 PEG tube fell functioning at the facility per facility nurse. Hemoglobin was stable at 13.2 on presentation No acute signs of bleeding EGD findings 12/06 - Large GE junction Denise-Espinosa tear with large blood clot and active bleeding status post epinephrine injection, thermocoagulation and clot removal with endoclips placement PEG tube was replaced by gastroenterology. EGD 12/08 Shows endoclips at GE junction, no bleeding and mass. Tear noted to be healing nicely. Plan: -Continue Protonix gtt, transition to Protonix p.o. overnight tonight -Discontinued octreotide gtt. -Per gastroenterology, resume anticoagulation in 7 days from today. [facility] doctor to resume. -GI consulted, appreciate recommendations -Will transfer hemoglobin less than 7 -Referral to registered dietitian #Right pyelonephritis #Cystitis # Leukocytosis #1/2 GPC bacteremia, possible contamination, Enterococcus group D Patient came in from [facility] and was found to have right pyelonephritis and cystitis on abdomen/pelvis CT UA was negative for any bacteria Patient does have a leukocytosis of 20.6, but no fevers. Plan: -Continue IV ceftriaxone - Will follow repeat blood culture #Atrial fibrillation with rapid ventricular response, resolved #Atrial fibrillation Patient has known history of atrial fibrillation per nurse at facility patient on Eliquis and metoprolol tartrate 12.5 twice daily, had an episode of A-fib with RVR heart rate 170 post EGD, was given x 1 diltiazem, x 1 metoprolol tartrate and patient converted back to sinus rhythm Previous echo 2022 shows Normal LV size and function, EF 55 to 60%, positive bubble study. TTE November 2025: Normal LV size and wall thickness. Estimated EF at 60-65 %. Unable to evaluate diastolic function due to atrial fibrillation. The RV is normal in size and systolic function. Trace MR and TR. IVC not well visualized. - Started on amiodarone drip overnight, will transition to p.o. in a.m. - Consulted cardiology, appreciate recommendations - Hold anticoagulation in setting of GI bleed, per GI okay to resume anticoagulation in 1 week from now. - Keep potassium more than 4 and magnesium more than 2 #Left common iliac artery aneurysm, 1.9 cm Abdomen/pelvis CT showed aneurysmal dilation of the left common iliac artery measuring 1.9 cm Patient is status post iliofemoral bypass by history on chart review -Outpatient follow-up Chronic diseases: #Hx of CVA with residual right-sided hemiparesis #Hx of hypertension #Hx of hyperlipidemia #Hx of dementia (nonverbal) #BPH #COPD/asthma Resume tube feeds per dietary recommendations DuoNebs as needed Resumed atorvastatin, tamsulosin and folic acid by G-tube Disposition: Telemetry, large active Denise-Espinosa tear Diet: NPO, scheduled for repeat EGD, on maintenance fluid D5 LR GI prophylaxis: protonix drip DVT prophylaxis: SCDs Code: DNR/DNI Case discussed with Attending Dr. Guillen. Ghulam Lozano PGY1 Disclaimer: This note was dictated by speech recognition. Minor errors in weekday babysitter may be present due to voice recognition software. Attending Provider Attestation/Addendum I have discussed and was present for the essential components of the history, physical examination, diagnosis, and treatment plan with the resident. I agree with the patient's care as documented by the resident and amended herein by me. Bertram Guillen DO. Patient seen and evaluated this AM. Patient did go into A-fib with RVR last night, patient placed on amiodarone drip. Labs largely unremarkable this morning, will continue amiodarone drip for now pending cardiology recommendations. Will also continue ceftriaxone, octreotide and Protonix pending further GI recommendations. Blood cultures still pending, initial blood cultures on arrival demonstrated group D Enterococcus in the anaerobic bottle of 1 set ends were repeats and they are pending. Will modify antibiotics accordingly once final culture sets result. Anticoagulation is contraindicated in this patient at this time due to Denise-Espinosa tear, may consider adding for atrial fibrillation later as it is warranted due to a chads Vascor of 4. Appreciate specialist recommendations. Although this document has been carefully reviewed, there may still be some phonetic and other typographical errors. These errors are purely grammatical due to imperfections in the software program and should not be construed in any way to compromise the substance of the patient's medical care during this visit.
[2024-12-09] MEDS: PANTOPRAZOLE/NS 80MG IV PREMIX 80 MG/100 ML BAG 10 MG IV (13:57)
[2024-12-09] MEDS: OCTREOTIDE ACET INJ 1,000 MCG in SODIUM CHLORIDE 0.9% 100 ML 5.1 MCG IV (14:16)
--- NOTE | 2024-12-09 16:12 | PC.SS ---
Per rounding meeting, pt has a tear in the A-Fib RBR, gastro and cardio consult requested. Possible d/c tomorrow. SS to f/u on d/c plan.
--- NOTE | 2024-12-09 16:19 | ESPR_ITS ---
Documentation for date of: 12/09/24 Subjective Subjective Interval history: Repeat endoscopy had shown no bleeding at the site of the large Denise-Espinosa tear with the endoclips in place Diet advanced Case discussed with internal medicine team Patient will be discharged back to residential with twice daily PPI and no GI follow-up necessary Exam Vital Signs Temp Pulse Resp BP Pulse Ox O2 Del Method O2 Flow Rate 97.4 F 70 17 114/65 100 Room Air 3 12/09/24 12:00 12/09/24 12:00 12/09/24 12:00 12/09/24 12:00 12/09/24 12:00 12/09/24 12:00 12/06/24 20:30 Objective Labs 12/09/24 06:02 12/09/24 06:02 Labs: Laboratory Results - last 24 hr 12/09/24 12/09/24 00:42 06:02 WBC 13.5 H 11.5 H RBC 4.13 L 4.06 L Hgb 11.9 L 11.6 L Hct 33.6 L 33.0 L MCV 81 81 MCH 28.8 28.6 MCHC 35.4 35.2 RDW Std Deviation 42.9 43.1 Plt Count 323 D 345 Neut % (Auto) 69 74 Lymph % (Auto) 15 11 [place] % (Auto) 12 11 Eos % (Auto) 4 3 Baso % (Auto) 0 1 Neut # (Auto) 9.3 H 8.6 H Lymph # (Auto) 2.0 1.2 [place] # (Auto) 1.6 H 1.3 H Eos # (Auto) 0.5 0.3 Baso # (Auto) 0.1 0.1 Immature Gran # (Auto) 0.05 H 0.06 H Absolute Nucleated RBC 0.00 0.00 Immature Gran % 0 1 H Nucleated RBC % 0 0 Sodium 133 L 136 Potassium 3.6 4.4 D Chloride 98 101 Carbon Dioxide 22.8 25.0 Anion Gap 12 10 BUN 11 10 Creatinine 0.8 0.9 Estim Creat Clear Calc 74.0 65.8 eGFR > 60 > 60 BUN/Creatinine Ratio 14 11 L Glucose 146 H 145 H Calculated Osmolality 268 L 273 L Calcium 9.2 8.6 Corrected Calcium 9.3 8.8 Phosphorus 2.6 2.8 Magnesium 1.9 2.4 Total Bilirubin 1.6 H 1.1 D AST 33 33 ALT 31 30 Alkaline Phosphatase 82 79 Troponin I < 0.020 Total Protein 6.7 6.6 Albumin 3.9 3.7 Globulin 2.8 2.9 Albumin/Globulin Ratio 1.4 1.3 Impressions Impression: Large Denise-Espinosa tear status post endoscopic intervention doing well Okay to discharge on a PPI twice daily Assessment & Plan A&P Narrative start amiodarone for chemical cardioversion as its a new onset afib likely alfonso of conversion to SR is high echo shows normnal EF anticoagulation contraindcated Time Spent With Patient Time: Total time spent is greater than 50% in coordination of care (as documented) at patient's floor/unit and/or counseling patient:
[2024-12-09] MEDS: SENNA TABLET 1 TAB PO (20:57)
[2024-12-09] MEDS: ATORVASTATIN CALCIUM 20 MG TABLET 40 MG GT (20:57)
[2024-12-09] MEDS: PANTOPRAZOLE 40 MG TABLET PO (20:58)
[2024-12-10] VITALS (9 sets, daily range): BP systolic 93–131; BP diastolic 59–93; PULSE 60–120; RESP 13–23; TEMP 36.1–36.7; O2SAT 92–100; BMI 19.5
[2024-12-10 06:32] LABS: Basophils % (Auto) 0 % (0-2.5); Eosinophils # (Auto) 0.6 Thou/mm3 (0.0-0.5); Eosinophils % (Auto) 7 % (0-10); Hematocrit 29.8 % (41.0-53.0); Hemoglobin 10.5 g/dL (13.5-16.0); Immature Granulocytes % (Auto) 0 % (0-0); Immature Granulocytes Auto 0.04 Thou/mm3 (0.00-0.00); Lymphocytes # (Auto) 1.3 Thou/mm3 (1.0-4.8); Lymphocytes % (Auto) 14 % (10-50); Mean Corpuscular HGB Conc 35.2 g/dl (31.0-37.0); Mean Corpuscular Hemoglobin 28.6 pg (25.0-35.0); Mean Corpuscular Volume 81 fL (80-100); Monocytes # (Auto) 0.9 Thou/mm3 (0.0-0.8); Monocytes % (Auto) 10 % (0-12); Neutrophils # (Auto) 6.1 Thou/mm3 (1.8-7.7); Neutrophils % (Auto) 68 % (37-80); Nucleated Red Blood Cell % 0 /100 WBC (0); Platelet Count 328 Thou/mm3 (140-440); RDW Standard Deviation 43.6 fL (35.1-43.9); Red Blood Count 3.67 Miln/mm3 (4.50-5.90); White Blood Count 8.9 Thou/mm3 (3.8-10.6)
[2024-12-10 07:18] LABS: Alanine Aminotransferase 22 U/L (10-49); Albumin, Serum 3.3 gm/dL (3.4-4.8); Albumin/Globulin Ratio 1.3 (1.2-2.2); Alkaline Phosphatase 66 U/L (46-116); Anion Gap 7 (7-16); Aspartate Amino Transferase 22 U/L (0-34); BUN/Creatinine Ratio 9 Ratio (12-20); Bilirubin,Total 0.6 mg/dL (0.3-1.2); Blood Urea Nitrogen 8 mg/dL (9-23); Calcium 8.3 mg/dL (8.3-10.6); Calcium (Corrected) 8.9 mg/dL (8.5-10.1); Carbon Dioxide 24.8 mMol/L (20.0-31.0); Chloride 104 mMol/L (98-107); Creatinine (Component) 0.9 mg/dL (0.6-1.3); Estimated Creatinine Clearance 65.8 mL/min (>60); Globulin 2.6 gm/dL (2.3-3.5); Glucose 146 mg/dL (74-106); Magnesium 1.9 mg/dL (1.6-2.6); Osmolality,Calculated 273 (275-295); Phosphorous 3.8 mg/dL (2.4-5.1); Potassium 3.7 mMol/L (3.4-5.1); Sodium 136 mMol/L (136-145); Total Protein 5.9 gm/dL (5.7-8.2); eGFR > 60 See Note
--- NOTE | 2024-12-10 07:44 | PC.NURSE ---
Called Dr. Perez regarding patient's mitten restraints. said to discontinue at this time and see how patient tolerates.
[2024-12-10] MEDS: Magnesium Sulfate 2 GM Ivpb 2 GM/50 ML BAG IV (09:40)
[2024-12-10] MEDS: cefTRIAXone/D5w 1gm IV premix 1 GM/50 ML BAG IV (09:40)
[2024-12-10] MEDS: POTASSIUM CHLORIDE 10% 20 MEQ/15 ML UDC 40 MEQ GT (09:40)
[2024-12-10] MEDS: TAMSULOSIN HCL 0.4 MG CAPSULE GT (09:41)
[2024-12-10] MEDS: SENNA TABLET 1 TAB PO (09:41)
[2024-12-10] MEDS: AMIODARONE HCL 200 MG TABLET GT (09:41)
[2024-12-10] MEDS: FOLIC ACID 1 MG TABLET GT (09:41)
[2024-12-10] MEDS: PANTOPRAZOLE 40 MG TABLET PO (09:41)
[2024-12-10] MEDS: POLYETHYLENE GLYCOL 17 GM PACKET PO (09:44)
[2024-12-10] MEDS: Milk Of Magnesia Susp 30 ML UDC PO (10:56)
[2024-12-10] MEDS: GLYCERIN, ADULT 1 EA SUPP 1 EACH PR (12:45)
--- NOTE | 2024-12-10 13:23 | ESPR_ITS ---
Documentation for date of: 12/10/24 Subjective Subjective Interval history: HR improved continue PO amiodarone Exam Vital Signs Temp Pulse Resp BP Pulse Ox O2 Del Method O2 Flow Rate 97.1 F 61 13 106/68 99 Room Air 3 12/10/24 08:00 12/10/24 09:41 12/10/24 08:00 12/10/24 09:41 12/10/24 08:00 12/10/24 08:00 12/06/24 20:30 Routine HEENT Exam Head: Present normocephalic and atraumatic Eye: Present EOMI and PERRL ENT: Present mucous membranes moist Routine Neck Exam Neck: Present supple and trachea midline Routine Respiratory Exam Respiratory: Present chest non-tender, lungs clear, normal breath sounds and no resp distress Routine Cardiovascular Exam Cardiovascular: Present RRR Routine Abdominal Exam Abdominal: Present soft and normoactive bowel sounds Routine Extremities Exam Extremities: Present full ROM Routine Skin Exam Skin: Present intact, dry and warm Routine Neurological Exam Neurological: Present alert, oriented X3 and CN II-XII intact Routine Psychiatric Exam Psychiatric: Present normal affect and normal thought process Objective Labs 12/10/24 05:45 12/10/24 05:45 Labs: Laboratory Results - last 24 hr 12/10/24 05:45 WBC 8.9 RBC 3.67 L Hgb 10.5 L Hct 29.8 L MCV 81 MCH 28.6 MCHC 35.2 RDW Std Deviation 43.6 Plt Count 328 Neut % (Auto) 68 Lymph % (Auto) 14 [place] % (Auto) 10 Eos % (Auto) 7 Baso % (Auto) 0 Neut # (Auto) 6.1 Lymph # (Auto) 1.3 [place] # (Auto) 0.9 H Eos # (Auto) 0.6 H Baso # (Auto) 0.0 Immature Gran # (Auto) 0.04 H Absolute Nucleated RBC 0.00 Immature Gran % 0 Nucleated RBC % 0 Sodium 136 Potassium 3.7 D Chloride 104 Carbon Dioxide 24.8 Anion Gap 7 BUN 8 L Creatinine 0.9 Estim Creat Clear Calc 65.8 eGFR > 60 BUN/Creatinine Ratio 9 L Glucose 146 H Calculated Osmolality 273 L Calcium 8.3 Corrected Calcium 8.9 Phosphorus 3.8 Magnesium 1.9 Total Bilirubin 0.6 D AST 22 ALT 22 Alkaline Phosphatase 66 Total Protein 5.9 Albumin 3.3 L Globulin 2.6 Albumin/Globulin Ratio 1.3 Assessment & Plan A&P Narrative HR 70 continuePO amiodarone Time Spent With Patient Time: Total time spent is greater than 50% in coordination of care (as documented) at patient's floor/unit and/or counseling patient:
--- NOTE | 2024-12-10 13:36 | PC.SS ---
Financial Institution Vice President (KATHLEEN) Yoli informed by Dr. Guillen that patient was ready for dischage. Patient will return to [facility]. SW notified patient's daughter, Leida. IMM provided via telephone call. KATHLEEN contacted [facility]'s Admission Coordinator, Leana. Per Leana, patient can be accepted, pending clinical information. KATHLEEN faxed all information. KATHLEEN contacted [facility], authorization number: [id number].
--- NOTE | 2024-12-10 16:22 | PD.RESDS ---
Planned Discharge Date 12/10/24 DS: Providers Provider Date of admission: 12/06/24 06:03 Primary care physician: Physician No Primary/Family Admitting Provider: Buck Meraz MD Attending Provider on Admission: Abner Guillen DO Consults: 12/06/24 06:06 Consult to Gastroenterology Routine Comment: Consulting Provider: Srikanth Crawford 12/06/24 06:08 Referral Registered Dietitian Routine Comment: 12/07/24 10:19 Consult to Cardiology Routine Comment: Afib episode 9 pm to 12 am 12/06/2024 Consulting Provider: Bj Richardson Attending Provider on DC: Abner Guillen DO Discharging Provider: Abner Guillen DO Anticipated date of discharge: 12/10/24 DS: Diagnosis Problem List Completed Was Problem List Reviewed/Reconciled?: Yes Hospital Course Hospital Course Hospital course: Hospital course: Mr. Doan is a 69-year-old male with past medical history of CVA with residual right-sided hemiparesis, status post PEG tube placement, atrial fibrillation (on Eliquis), hypertension, hyperlipidemia, iliofemoral bypass, BPH, and dementia (nonverbal) was admitted to the hospital on 12/06/2024 from [facility] for management of pyelonephritis and upper GI bleed. Patient nonverbal, unable to provide history, we were able to contact the facility nurse, per the nurse patient had 2 episodes of large bloody emesis. Was sent to the emergency department for further evaluation, hemoglobin on presentation is stable. Patient was also found to have right pyelonephritis and cystitis on CT abdomen pelvis, was started on IV antibiotics. Patient underwent EGD on 12/06 which showed large GE junction Denise-Espinosa tear, the bleeding was controlled with epinephrine injection, thermocoagulation and clot removal with endoclips placement by gastroenterology. Patient was started on octreotide drip and Protonix drip, underwent repeat EGD on 12/08 which showed endoclips in the GE junction and no signs of any major bleeding and tear was noted to be healing nicely. During admission patient's primary set of blood cultures did show GPC bacteremia, cultures repeated were negative for 24 hours and patient was not febrile and responded well to IV ceftriaxone. Patient had multiple rapid responses for atrial fibrillation with rapid ventricular response, history of A-fib was confirmed with skilled nursing nurse eventually patient was started on amiodarone drip and was transitioned off to p.o. amiodarone. Further plan is to discharge patient back to [facility] facility on oral amiodarone, Protonix twice daily and levofloxacin to complete treatment for pyelonephritis. Patient to resume anticoagulation on 12/16/2024 along with aspirin. Patient is stable for discharge, responded well to hospital treatment. 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 Guillen. Ghulam Lozano PGY1 Disclaimer: This note was dictated by speech recognition. Minor errors in podiatric assistant may be present due to voice recognition software. Time Spent with Patient Time attestation: Total time spent providing and/or coordinating discharge services: Time spent: Greater than 30 minutes Exam Vital Signs Temp Pulse Resp BP Pulse Ox O2 Del Method O2 Flow Rate 97.1 F 71 14 93/66 99 Room Air 3 12/10/24 15:53 12/10/24 15:53 12/10/24 15:53 12/10/24 15:53 12/10/24 15:53 12/10/24 15:53 12/06/24 20:30 Narrative Exam General: Nonverbal, no acute distress, cachectic Eyes: PERRL, EOMI. Anicteric Ears: No visible ear discharge Nose: No nasal discharge. Mouth/Throat: Dry mucous membranes, no redness, no lesions. Neck: Neck supple, non-tender, no cervical lymphadenopathy. Lungs: Clear DREAD to auscultation and percussion, No accessory muscle use. Cardio: Normal S1/S2, regular rhythm, no murmurs, no JVD Abdomen: Soft, non-tender, no palpable masses, peristalsis present, no guarding or rebound, PEG tube noted. Abdominal binder noted. Extremities: Symmetrical, R UE contracture, no peripheral edema , non-tender, peripheral pulses presents. Skin: No rashes, no lesions, warm to touch. Neuro: R side hemiparesis, L side able to move w/o difficulty, nonverbal and not able to follow commands. Discharge Plan Plan Patient Disposition: Xfer Skilled Nsg Fac (SNF) Patient condition on transfer: Stable Prescriptions/Referrals Prescriptions/Med Rec: New amiodarone 200 mg Tablet 200 mg G-tube BID 30 Days Qty: 0 0RF levofloxacin 750 mg tablet 750 mg PO QDAY 2 Days Qty: 2 0RF pantoprazole [Protonix] 40 mg tablet,delayed release (DR/EC) 40 mg PO BID 30 Days Qty: 60 0RF Rx Instructions: Via G Tube Continued atorvastatin 40 mg tablet 40 mg feeding tube QPM baclofen 5 mg tablet 2.5 mg feeding tube BID folic acid 1 mg tablet 1 mg feeding tube QDAY docusate sodium [DOK] 100 mg tablet 100 mg PO BID Rx Instructions: give via gtube ipratropium-albuterol 0.5 mg-3 mg(2.5 mg base)/3 mL solution for nebulization 3 ml inhalation Q4H PRN (Reason: shortness of breath or wheezing) tamsulosin 0.4 mg capsule 0.4 mg PO QDAY Patient Comments: TAKE 1 CAPSULE BY gtube Held Eliquis 5 mg tablet 5 mg feeding tube BID Hold Instructions: Resume on 12/16/24. Resume on 12/16/2024 aspirin 81 mg Tablet,Delayed Release (Dr/Ec) 81 mg PO QDAY 30 Days Qty: 30 1RF Hold Instructions: Resume on 12/16/24. Resume on 12/16/24. Discontinued metoprolol tartrate 25 mg tablet 12.5 mg feeding tube BID Rx Instructions: hold for SBP <100 or pulse <60 lansoprazole 30 mg capsule,delayed release(DR/EC) 30 mg feeding tube QDAY donepezil 5 mg tablet 5 mg PO HS Patient Comments: TAKE 1 TABLET BY MOUTH EVERY DAY AT BEDTIME atorvastatin 80 mg tablet 80 mg PO QDAY Patient Comments: TAKE 1 TABLET BY MOUTH AT BEDTIME amitriptyline 25 mg tablet 25 mg PO QDAY Patient Comments: TAKE 1 TABLET BY MOUTH EVERY DAY AT BEDTIME amlodipine 10 mg Tablet 10 mg PO QDAY lisinopril 5 mg Tablet 5 mg PO QDAY memantine 10 mg tablet 10 mg PO BID Patient Comments: TAKE 1 TABLET BY MOUTH TWICE DAILY Referrals: No Primary/Family,Physician [Primary Care Provider] - Patient/Caregiver Discharge Instructions Discharge Activity: activity as tolerated Other Discharge Activity Instructions:: Continue pantoprazole 40 mg twice daily via G-tube, hold aspirin and Eliquis until 12/16/2024. Okay to resume per gastroenterology. Continue amiodarone 200 mg twice daily for atrial fibrillation, anticoagulation contraindicated for now due to GI bleed, resume on 12/16/2024 Take levofloxacin 750 mg for 2 more doses to complete treatment for pyelonephritis. Stop home medication metoprolol, hold aspirin until 12/16/2024 as well. Continue all other home medications as below. Follow-up with primary care physician in 1 to 2 weeks. Return to emergency department if symptoms worsen. Other Discharge Diet Instructions: Low sodium, Cardiac Diet. Education Materials: Bleeding Gastrointestinal, AFL/Afib, Anatomy of the Digestive System Print Language: Portuguese Stand Alone Forms: Scrip-t Award Info., Patient Portal Info Letter Discharge Order Discharge Orders: Discharge (Routine); Ordered 12/10/24 Ordered By: Ghulam Lozano Quality Discharge Quality Measures none MD Attestestation MD Attestation I have discussed and was present for the essential components of the discharge history, physical examination, diagnosis, and discharge treatment plan with the resident. I agree with the patient's discharge care as documented by the resident and amended herein by me. Bertram Guillen, . Patient was stable, afebrile, tolerating G-tube feedings at time of discharge back to SNF. No further signs of bleeding from Denise-Espinosa tear, can start Eliquis in 7 days per gastroenterology for atrial fibrillation, the patient is also been started on amiodarone 200 mg twice daily through his G-tube for atrial fibrillation. We have also prescribed levofloxacin 750 mg daily for an additional 2 days to complete a total 7-day course for cystitis/pyelonephritis. See resident note above for additional details in regards to hospital stay. Although this document has been carefully reviewed, there may still be some phonetic and other typographical errors. These errors are purely grammatical due to imperfections in the software program and should not be construed in any way to compromise the substance of the patient's medical care during this visit.
--- NOTE | 2024-12-10 16:46 | PD.IMPROG ---
Documentation for date of: 12/10/24 Subjective Subjective Interval history: Hemoglobin hematocrit 10.5 and 29.8 no further bleeding Exam Vital Signs Temp Pulse Resp BP Pulse Ox O2 Del Method O2 Flow Rate 97.1 F 71 14 93/66 99 Room Air 3 12/10/24 15:53 12/10/24 15:53 12/10/24 15:53 12/10/24 15:53 12/10/24 15:53 12/10/24 15:53 12/06/24 20:30 Objective Labs 12/10/24 05:45 12/10/24 05:45 Labs: Laboratory Results - last 24 hr 12/10/24 05:45 WBC 8.9 RBC 3.67 L Hgb 10.5 L Hct 29.8 L MCV 81 MCH 28.6 MCHC 35.2 RDW Std Deviation 43.6 Plt Count 328 Neut % (Auto) 68 Lymph % (Auto) 14 [place] % (Auto) 10 Eos % (Auto) 7 Baso % (Auto) 0 Neut # (Auto) 6.1 Lymph # (Auto) 1.3 [place] # (Auto) 0.9 H Eos # (Auto) 0.6 H Baso # (Auto) 0.0 Immature Gran # (Auto) 0.04 H Absolute Nucleated RBC 0.00 Immature Gran % 0 Nucleated RBC % 0 Sodium 136 Potassium 3.7 D Chloride 104 Carbon Dioxide 24.8 Anion Gap 7 BUN 8 L Creatinine 0.9 Estim Creat Clear Calc 65.8 eGFR > 60 BUN/Creatinine Ratio 9 L Glucose 146 H Calculated Osmolality 273 L Calcium 8.3 Corrected Calcium 8.9 Phosphorus 3.8 Magnesium 1.9 Total Bilirubin 0.6 D AST 22 ALT 22 Alkaline Phosphatase 66 Total Protein 5.9 Albumin 3.3 L Globulin 2.6 Albumin/Globulin Ratio 1.3 Impressions Impression: Large Denise-Espinosa tear requiring endoscopic intervention with placement of endoclips bipolar gold heater probe and injection of epinephrine at the local site Doing well post procedure Continue current management Assessment & Plan A&P Narrative HR 70 continuePO amiodarone Time Spent With Patient Time: Total time spent is greater than 50% in coordination of care (as documented) at patient's floor/unit and/or counseling patient:
== END 2024-12-10 18:08 | disposition skilled nursing facility (03) | DRG 689 ==
LOC: SERX 22:26 → SERHOLD 12-06 06:16 → S3SX 12-06 08:38 → S2NX 12-06 21:52
PROVIDERS: Specialist; Student in an Organized Health Care Education/Training Program; Admitting Provider Student in an Organized Health Care Education/Training Program; Emergency Provider Emergency Medicine; Visit Provider Student in an Organized Health Care Education/Training Program
PROC: 3E0G8GC Introduction of Other Therapeutic Substance into Upper GI, Via Natural or Artificial Opening Endoscopic (ICD-10-PCS; CPT 43239; principal; 2024-12-06 16:30)
PROC: 0DJ08ZZ Inspection of Upper Intestinal Tract, Via Natural or Artificial Opening Endoscopic (ICD-10-PCS; CPT 43239; principal; 2024-12-08 17:00)
DX: N12 Tubulo-interstitial nephritis, not specified as acute or chronic (principal); K22.6 Gastro-esophageal laceration-hemorrhage syndrome; E87.1 Hypo-osmolality and hyponatremia; I69.351 Hemiplegia and hemiparesis following cerebral infarction affecting right dominant side; K94.23 Gastrostomy malfunction; F03.90 Unspecified dementia, unspecified severity, without behavioral disturbance, psychotic disturbance, mood disturbance, and anxiety; I10 Essential (primary) hypertension; N40.0 Benign prostatic hyperplasia without lower urinary tract symptoms; E78.00 Pure hypercholesterolemia, unspecified; K21.9 Gastro-esophageal reflux disease without esophagitis; N30.90 Cystitis, unspecified without hematuria; I72.3 Aneurysm of iliac artery; I48.91 Unspecified atrial fibrillation; B95.2 Enterococcus as the cause of diseases classified elsewhere; I73.9 Peripheral vascular disease, unspecified; J44.89 Other specified chronic obstructive pulmonary disease; K44.9 Diaphragmatic hernia without obstruction or gangrene; K52.9 Noninfective gastroenteritis and colitis, unspecified; K57.30 Diverticulosis of large intestine without perforation or abscess without bleeding; N21.0 Calculus in bladder; Z66 Do not resuscitate; Z79.01 Long term (current) use of anticoagulants
CPT/HCPCS: 36415; 74022; 74177; 80053; 80061; 80202; 81001; 83036; 83605; 83735; 84100; 84145; 84439; 84443; 84484; 85014; 85018; 85025; 85730; 86850; 86900; 86901; 87040; 87077; 87081; 87086; 87186; 93005; 93306; 96365; 96367; 96375; 99285; A4216; A4217; A4649; J0131; J0171; J0283; J0696; J1200; J2060; J2250; J2354; J2358; J2470; J2543; J3010; J3370; J3475; J3480; J3490; J7030; J7050; J7120; J7121; Q9967; A9270; J2359

== ENCOUNTER 2024-12-24 01:02 | Inpatient (IN) | payer MEDICARE, MEDICAID, SELFPAY ==
[2024-12-24] VITALS (9 sets, daily range): BP systolic 108–123; BP diastolic 65–81; PULSE 64–89; RESP 13–18; TEMP 36.2–37.2; O2SAT 91–98
--- NOTE | 2024-12-24 02:22 | PD.EDGIBLD ---
ED GI Bleed RME/HPI General Chief complaint: GI Bleed Stated complaint: GI BLEED Time Seen by Provider: 12/24/24 01:39 Arrival date/time: 12/24/24 01:02 RME / HPI RME / HPI Narrative: DR. SCHNEIEDR MAIN ED EVALUATION: 69 y/o nonverbal male BIBKira from [facility] with Hx of GI bleed and Denise-Espinosa tear presents with bloody stool an unknown amount of times. Last bloody stool reported just [facility] when EMS arrived on scene. Related Data Home Medications ?Medication ?Instructions ?Recorded ?Confirmed tamsulosin 0.4 mg capsule 0.4 mg PO QDAY 09/16/23 12/24/24 apixaban 5 mg tablet (Eliquis) 5 mg feeding tube BID 12/07/24 12/07/24 Held on 12/10/24. Instructions: Resume on 12/16/24. Resume on 12/16/2024 atorvastatin 40 mg tablet 40 mg feeding tube QPM 12/07/24 12/24/24 baclofen 5 mg tablet 2.5 mg feeding tube BID 12/07/24 12/24/24 docusate sodium 100 mg tablet (DOK) 100 mg PO BID 12/07/24 12/24/24 folic acid 1 mg tablet 1 mg feeding tube QDAY 12/07/24 12/24/24 ipratropium 0.5 mg-albuterol 3 mg 3 ml inhalation Q4H PRN shortness 12/07/24 12/24/24 (2.5 mg base)/3 mL nebulization of breath or wheezing soln acetaminophen 325 mg capsule 325 mg feeding tube Q4H PRN pain 12/24/24 12/24/24 amiodarone 200 mg tablet 200 mg feeding tube BID 12/24/24 12/24/24 apixaban 5 mg tablet 5 mg feeding tube BID 12/24/24 12/24/24 aspirin 81 mg chewable tablet 81 mg feeding tube QDAY 12/24/24 12/24/24 Previous Rx's ?Medication ?Instructions ?Recorded aspirin 81 mg tablet,delayed 81 mg PO QDAY 30 days #30 tabs 06/12/23 release Held on 12/10/24. Instructions: Resume on 12/16/24. Resume on 12/16/24. amiodarone 200 mg tablet 200 mg G-tube BID 30 days #0 tabs 12/10/24 pantoprazole 40 mg tablet,delayed 40 mg PO BID 30 days #60 tabs 12/10/24 release (Protonix) Allergies Allergy/AdvReac Type Severity Reaction Status Date / Time No Known Allergies Allergy Verified 10/08/24 19:28 Review of Systems Review of Systems ROS Unobtainable: unobtainable due to medical condition Past Medical History Past Medical History NEUROLOGIC: Positive Neurological Disorders, Cerebrovascular Accident, Transient Ischemic Attacks (TIA) and Dementia CARDIAC: Positive Cardiac Disorders, Atherosclerotic Heart Disease, Peripheral Vascular Disease, Hypercholesterolemia and Hypertension GASTROINTESTINAL: Positive Gastrointestinal Disorders and Gastroesophageal Reflux Disease GENITOURINARY: Positive Benign Prostatic Hyperplasia PSYCHO/SOCIAL: Positive Psychiatric Problems OTHER HISTORY: Positive Hospitalization and Falls Surgical History SURGICAL: Positive Abdominal Surgery ED Exam Narrative Physical exam: GENERAL APPEARANCE: alert and oriented x 4, well-developed, well-nourished, no acute distress VITALS: All vitals were reviewed and the pulse ox is 95% on room air, which is normal according to my interpretation. HEENT: Normocephalic, atraumatic; pupils equal, round, reactive to light; EOMI; mucous membranes pink, moist; oropharynx clear NECK: Supple LUNGS: CTABL; no wheezes, no rales, no rhonchi HEART: Regular rate, regular rhythm; normal S1, S2; no murmurs ABDOMEN: non distended; normal BS; soft, no tenderness, no guarding, no rebound; no masses, no organomegaly, no hernia BACK: no CVA tenderness EXTREMITIES: atraumatic; no edema NEUROLOGIC: awake; alert and oriented x4; cranial nerves II-XII grossly intact; no focal sensory or motor deficits PSYCHIATRIC: appropriate mood and affect SKIN: warm, dry, normal color; no rashes Course Quality Measures none Orders Category Date Time Status Admit to Inpatient Status Routine Admission 12/24/24 03:06 Active Patient Condition Routine Admission 12/24/24 03:06 Ordered Activity as Tolerated Routine Care 12/24/24 03:[address] Screening NOW Care 12/24/24 02:58 Active Continuous Pulse Oximetry NOW Care 12/24/24 03:06 Completed Flu & Pneumonia Vaccine Screen ONCE Care 12/24/24 03:06 Active NPO NOW Care 12/24/24 03:07 Active Notify provider NEEDED Care 12/24/24 03:06 Active Obtain weight daily Care 12/24/24 03:07 Active Sequential Compression Device QSHIFT Care 12/24/24 03:06 Active Consult to Gastroenterology Routine Cons 12/24/24 03:09 Ordered Diet NPO (NOW) Diet 12/24/24 03:[address] abdomen pelvis w con Stat Exams 12/24/24 02:58 Ordered CBC AM DRAW Lab 12/24/24 03:39 Completed CBC AM DRAW Lab 12/25/24 05:00 Ordered CBC AM DRAW Lab 12/26/24 05:00 Ordered CBC Stat Lab 12/24/24 01:30 Completed Comprehensive Metabolic Panel AM DRAW Lab 12/24/24 05:00 Ordered Comprehensive Metabolic Panel AM DRAW Lab 12/25/24 05:00 Ordered Comprehensive Metabolic Panel AM DRAW Lab 12/26/24 05:00 Ordered Comprehensive Metabolic Panel Stat Lab 12/24/24 03:39 Completed Ferritin AM DRAW Lab 12/24/24 03:39 Completed Iron Panel AM DRAW Lab 12/24/24 03:39 Completed Lipase Stat Lab 12/24/24 03:39 Completed Magnesium Stat Lab 12/24/24 03:39 Completed Partial Thromboplastin Time Stat Lab 12/24/24 03:39 Completed Prothrombin Time with INR Stat Lab 12/24/24 03:39 Completed Reticulocyte Count Routine Lab 12/24/24 03:39 Completed Type and Screen Stat Lab 12/24/24 02:15 Completed Acetaminophen Tab [Tylenol Tab] Med 12/24/24 03:06 Active 650 mg PO Q6H PRN Ondansetron Inj [Zofran Inj] Med 12/24/24 03:06 Active 4 mg IVP Q6H PRN Pantoprazole Inj [Protonix Inj] Med 12/24/24 09:00 Active 40 mg IVP BID Code Status Routine Oth 12/24/24 03:06 Ordered Vital Signs Vital signs: Vital Signs Temperature 98.1 F 12/24/24 01:20 Pulse Rate 67 12/24/24 01:20 Respiratory Rate 16 12/24/24 01:20 Blood Pressure 123/81 12/24/24 01:20 Pulse Oximetry (%) 95 12/24/24 01:20 Oxygen Delivery Method Room Air 12/24/24 01:20 GI Bleed MDM Narrative MDM Narrative:: Scribe Attestation: Antonieta Lockett, abril scribing for and in the presence of Dr. Schneider. Provider Notation: Although this document has been carefully reviewed, there may still be some phonetic and other typographical errors.? These errors are purely grammatical due to imperfections in the software program and should not be construed in any way to? compromise the substance of the patient's medical care during this visit. Patient data External records reviewed:: [facility] previous records (Reviewed prior ED records from 12/06/24. Patient was seen for Upper GI bleed.), EMS form and Group Home records Clinical information provided by:: EMS Social determinants that could affect healthcare access:: housing (SNF) Patient has the following chronic illnesses:: Dementia, Atherosclerotic Heart Disease, Peripheral Vascular Disease, Hypercholesterolemia, Hypertension, Gastroesophageal Reflux Disease., Prostatic Hyperplasia How is presenting disease/condition affected by chronic disease/condition?: exacerbated by Evaluation data The following diagnostics were reviewed and interpreted by me:: lab results and radiology exam(s) Lab and/or radiology exams considered but not ordered:: None Interpretation Summary: RADIOLOGY Abdomen/Pelvis CT: Pending official radiology report. Medications / Prescriptions Medications or Prescriptions considered but not ordered:: None Medication administrations:: Medication Administration History Acetaminophen (Acetaminophen 325 Mg Tablet) 650 mg PO Q6H PRN PRN Reason: PAIN SCALE 1-3 (mild Stop: 01/23/25 03:05 Ondansetron HCl (Ondansetron Inj 2 Mg/Ml Inj 2 Ml) 4 mg IVP Q6H PRN; Protocol PRN Reason: NAUSEA OR VOMITING Stop: 01/23/25 03:05 Pantoprazole Sodium (Pantoprazole Inj 40 Mg Vial) 40 mg IVP BID AMY Stop: 01/23/25 08:59 Discontinued Medications Lidocaine HCl (Lidocaine Jelly 2% (Urojet) 10 Ml Tube) 0 ml TOP X1 ONE Stop: 12/24/24 04:01 Last Admin: 12/24/24 04:07 Dose: Not Given Documented By: CCT Non-Admin Reason: Cancelled by Provider See above Consultations Consultation(s) initiated? (list below): Yes Consultation #1 (Physician, Specialty, Details): Dr. Guillen made aware of the patient?s HPI, PMHx, lab and/or radiology results. Treatment plan was discussed. Will admit for further evaluation and management. Accepts patient for admission. Time: 02:50 Diagnosis GI bleed differential diagnosis: hemorrhoids, infectious diarrhea, esophageal varices, gastritis, Denise-Espinosa syndrome, Upper gastrointestinal hemorrhage, Lower gastrointestinal hemorrhage, hematochezia, melena and anal fissure Most likely diagnosis given after review of the tests above:: Rectal bleed Admission Indicated Admission indicated?: indicated Explain why admission is indicated or not indicated:: Rectal bleed Admission Request Was there a request for admission?: Yes Admission Attestation Admission request attestation: Discussed case with [] from Hospitalist service regarding admission. Discussed patients ED course, exam findings, labs, and radiology results. The Hospitalist [agrees,declines] to accept the patient for admission. Disposition Plan Disposition Plan: Admit Discharge Plan Plan Patient Disposition: Admit Acute Care w/in Hospital Problem List Clinical Impression: Rectal bleed
[2024-12-24 02:29] LABS: Basophils # (Auto) 0.1 Thou/mm3 (0.0-0.2); Basophils % (Auto) 1 % (0-2.5); Eosinophils # (Auto) 0.4 Thou/mm3 (0.0-0.5); Eosinophils % (Auto) 5 % (0-10); Hematocrit 30.5 % (41.0-53.0); Hemoglobin 10.7 g/dL (13.5-16.0); Immature Granulocytes Auto 0.04 Thou/mm3 (0.00-0.00); Lymphocytes # (Auto) 1.8 Thou/mm3 (1.0-4.8); Lymphocytes % (Auto) 21 % (10-50); Mean Corpuscular HGB Conc 35.1 g/dl (31.0-37.0); Mean Corpuscular Hemoglobin 28.6 pg (25.0-35.0); Mean Corpuscular Volume 82 fL (80-100); Monocytes # (Auto) 1.1 Thou/mm3 (0.0-0.8); Monocytes % (Auto) 12 % (0-12); Neutrophils # (Auto) 5.3 Thou/mm3 (1.8-7.7); Neutrophils % (Auto) 61 % (37-80); Nucleated Red Blood Cell # 0.00 Thou/mm3 (0.00-0.00); Nucleated Red Blood Cell % 0 /100 WBC (0); Platelet Count 527 Thou/mm3 (140-440); RDW Standard Deviation 43.6 fL (35.1-43.9); Red Blood Count 3.74 Miln/mm3 (4.50-5.90); White Blood Count 8.7 Thou/mm3 (3.8-10.6)
--- NOTE | 2024-12-24 02:58 | XR_ITS ---
Examination: CT abdomen with intravenous contrast CT pelvis with intravenous contrast 2-D coronal reconstructions 2-D sagittal reconstructions Date and time of exam:December 24, 2024 0503 hours INDICATIONS: Gastrointestinal/rectal bleeding today. CTDI: vol (mGy) 9.44 DLP: (mGycm) 527 Technique: Multiple axial sections of the abdomen and pelvis have been obtained. 64 slice high-resolution scanner used. 3 mm axial sections have been obtained, post intravenous injection 60 cc Isovue 370 2-D sagittal, coronal reconstructions obtained. Low dose protocols were performed. One or more of the following dose reduction techniques were used; automated exposure control, adjustment of the mA and/or KV according to patient size, use of iterative reconstruction technique. Findings: Small right pleural effusion Atelectasis versus pneumonia right base 32 mm bleb versus cavitary lesion in the right lower lobe No focal liver or splenic lesions No pancreatic or adrenal mass No gallstones Moderate bilateral renal scarring, no renal or ureteral calculi, no hydronephrosis Gastrostomy tube satisfactory position Abdominal aortic calcification no aneurysmal dilatation Normal appendix Multiple tiny bladder calculi Minimal dilatation left common iliac artery No bowel obstruction Colonic diverticulosis, no diverticulitis Prominent osteopenia Advanced degenerative disc disease L5-S1 IMPRESSION: No abnormal contrast extravasation in the gastrointestinal tract, consider follow-up nuclear medicine gastrointestinal bleeding study as clinically warranted, also consider CTA abdomen and pelvis follow-up as clinically warranted Moderate bilateral renal scarring Normal appendix No bowel obstruction Colonic diverticulosis, no diverticulitis. Subcentimeter bladder calculi. Atelectasis versus pneumonia right base with small right pleural effusion
--- NOTE | 2024-12-24 03:09 | PD.RESHP ---
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, where he resides. Given patient not being verbal most of the history was taken from chart review at this time. Patient was found to have today of episode of bloody stools prior to coming to the ED. Patient presented to the ED normotensive, heart rate 67, respiratory rate 16, afebrile satting 95 on room air. Pertinent lab findings include WBC of 8.7, hemoglobin 10.7 with MCV of 82, platelets of 527, CMP pending. CT abdomen pelvis ordered and pending read. Patient will be admitted for GI bleed and started on IV Protonix, n.p.o. with a GI consultation for likely need for endoscopic evaluation. Exam Vital Signs Temp Pulse Resp BP Pulse Ox O2 Del Method 98.1 F 67 16 123/81 95 Room Air 12/24/24 01:20 12/24/24 01:20 12/24/24 01:20 12/24/24 01:20 12/24/24 01:20 12/24/24 01:20 Narrative Exam Physical Exam: General: Nonverbal, cachectic HEENT: Dry mucous membranes. PERRL, EOMI. Anicteric Lungs: Clear to auscultation bilaterally Cardio: Normal S1/S2, regular rhythm, no murmurs, no JVD Abdomen: Soft, non-tender, no palpable masses, no guarding or rebound, PEG tube noted. Extremities: Symmetrical, RUE contracture, no peripheral edema , non-tender, peripheral pulses presents. Neuro: R side hemiparesis, L side able to move w/o difficulty, nonverbal and not able to follow commands. Results: Labs 12/24/24 03:39 12/24/24 03:39 Labs: Short CBC 12/24/24 Range/Units 01:30 WBC 8.7 (3.8-10.6) Thou/mm3 Hgb 10.7 L (13.5-16.0) g/dL Hct 30.5 L (41.0-53.0) % Plt Count 527 H D (140-440) Thou/mm3 Quality Measures Quality Measures none Advance care planning discussed with:: other Medications Home Medications and Allergies Home Medications ?Medication ?Instructions ?Recorded ?Confirmed ?Type tamsulosin 0.4 mg capsule 0.4 mg PO QDAY 09/16/23 12/07/24 History apixaban 5 mg tablet (Eliquis) 5 mg feeding tube BID 12/07/24 12/07/24 History Held on 12/10/24. Instructions: Resume on 12/16/24. Resume on 12/16/2024 atorvastatin 40 mg tablet 40 mg feeding tube QPM 12/07/24 12/07/24 History baclofen 5 mg tablet 2.5 mg feeding tube BID 12/07/24 12/07/24 History docusate sodium 100 mg tablet (DOK) 100 mg PO BID 12/07/24 12/07/24 History folic acid 1 mg tablet 1 mg feeding tube QDAY 12/07/24 12/07/24 History ipratropium 0.5 mg-albuterol 3 mg 3 ml inhalation Q4H PRN shortness 12/07/24 12/07/24 History (2.5 mg base)/3 mL nebulization of breath or wheezing soln Allergies Allergy/AdvReac Type Severity Reaction Status Date / Time No Known Allergies Allergy Verified 10/08/24 19:28 Visit Medications Acetaminophen (Acetaminophen 325 Mg Tablet) 650 mg PO Q6H PRN PRN Reason: PAIN SCALE 1-3 (mild Stop: 01/23/25 03:05 Ondansetron HCl (Ondansetron Inj 2 Mg/Ml Inj 2 Ml) 4 mg IVP Q6H PRN; Protocol PRN Reason: NAUSEA OR VOMITING Stop: 01/23/25 03:05 Pantoprazole Sodium (Pantoprazole Inj 40 Mg Vial) 40 mg IVP BID AMY Stop: 01/23/25 08:59 Assessment & Plan Plan 69-year-old male with past medical history of 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 with a GI consultation for likely need for endoscopic evaluation. #GI bleed #Acute blood loss anemia likely upper vs. lower 2/2 to melena Presenting from [facility] ([facility]) with bloody/dark bowel movements noted by staff Hx of Denise-Espinosa tear in the past; endoscopy done on 12/06 and 12/08 with endoclip placement Hgb of 10.7 w/ MCV of 82 likely 2/2 to acute blood loss but cannot r/o CYNTHIA, AOCD, vitamin deficiency; less likely to be myelosuppression, hemolytic anemia Plan: GI consulted, appreciate recommendations NPO IV Protonix 40 BID Monitor Hgb closely; transfuse if <7 Follow-up on Iron panel, ferritin and reticulocyte count # Thrombophilia Likely 2/2 to active bleeding leisure, inflammatory response Plan: Monitor with morning labs #Hx of CVA with residual right-sided hemiparesis #Hx of hypertension #Hx of hyperlipidemia #Hx of dementia (nonverbal) Chronic medical conditions not pertinent to the following presentation Health Maintenance: Lines: PIV, PEG tube Diet: N.p.o. Bowel: Not needed GI prophylaxis: On IV Protonix 40 twice daily DVT prophylaxis: SCD Dispo: Pending GI consultation for upper GI bleed Code: DNR Patient seen and examined with attending Dr. Wilmer Manzanares DO PGY-2 Internal Medicine - GME Attending Provider Attestation/Addendum Telemetry after examination of the patient and review of the clinical data I feel that this patient needs admission to the hospital for further treatment/evaluation. I have discussed and was present for the essential components of the history, physical examination, diagnosis, and treatment plan with the resident. I agree with the patient's care as documented by the resident and amended herein by me. Bertram Guillen DO. Although this document has been carefully reviewed, there may still be some phonetic and other typographical errors. These errors are purely grammatical due to imperfections in the software program and should not be construed in any way to compromise the substance of the patient's medical care during this visit. Patient seen and evaluated in the ED the patient is a 69-year-old male with a significant past medical history of recently diagnosed Denise-Espinosa tear, atrial fibrillation on Eliquis, COPD, asthma CVA with right hemiparesis, nonverbal, hypertension, hyperlipidemia, BPH, dementia, and PEG tube placement presented to the emergency department from [facility] for hematochezia. Episodes began today apparently, unclear the exact number as the patient is nonverbal, all history taken from ED provider and chart review. Patient subsequently admitted for GI bleed. Of note, patient was recently discharged for GI bleed secondary to Denise-Espinosa tear on 12/10/2024 In the ED, vital signs were stable and the patient was afebrile on arrival. The patient's hemoglobin was 10.3 which is about the same as when he was discharged, CBC unremarkable, CMP significant for a sodium of 128, chloride 94, osmolarity 258 AST [address] abdomen and pelvis was ordered and is pending. Gastroenterology was consulted in the ED. Patient admitted to telemetry for GI bleed, likely upper, will hold tube feeds for now, Protonix 40 mg IV twice daily started, gastroenterology has been consulted, will transfuse for hemoglobin less than 7. Will continue home meds as appropriate and hold the patient's anticoagulation. Will continue monitor closely tonight, patient is stable at this time
[2024-12-24 03:54] LABS: Basophils # (Auto) 0.1 Thou/mm3 (0.0-0.2); Basophils % (Auto) 1 % (0-2.5); Eosinophils # (Auto) 0.5 Thou/mm3 (0.0-0.5); Eosinophils % (Auto) 5 % (0-10); Hematocrit 29.4 % (41.0-53.0); Hemoglobin 10.3 g/dL (13.5-16.0); Immature Granulocytes Auto 0.04 Thou/mm3 (0.00-0.00); Immature Reticulocyte Fraction 20.9 % (2.3-13.4); Lymphocytes # (Auto) 2.1 Thou/mm3 (1.0-4.8); Lymphocytes % (Auto) 21 % (10-50); Mean Corpuscular HGB Conc 35.0 g/dl (31.0-37.0); Mean Corpuscular Hemoglobin 28.6 pg (25.0-35.0); Mean Corpuscular Volume 82 fL (80-100); Monocytes # (Auto) 1.1 Thou/mm3 (0.0-0.8); Monocytes % (Auto) 12 % (0-12); Neutrophils # (Auto) 6.0 Thou/mm3 (1.8-7.7); Neutrophils % (Auto) 61 % (37-80); Nucleated Red Blood Cell # 0.00 Thou/mm3 (0.00-0.00); Nucleated Red Blood Cell % 0 /100 WBC (0); Platelet Count 448 Thou/mm3 (140-440); RDW Standard Deviation 43.8 fL (35.1-43.9); Red Blood Count 3.60 Miln/mm3 (4.50-5.90); Reticulocyte % (Auto) 2.7 % (0.5-1.5); Reticulocyte Absolute Auto 98.3 Biln/L (25.0-75.0); Reticulocyte Hgb Content 29.3 pg (28.0-35.0); White Blood Count 9.8 Thou/mm3 (3.8-10.6)
[2024-12-24 04:18] LABS: INR 1.0 (0.9-1.3); Partial Thromboplastin Time 34.9 Seconds (22.0-36.0); Prothrombin Time 11.4 Seconds (9.0-12.2)
[2024-12-24 04:25] LABS: Alanine Aminotransferase 62 U/L (10-49); Albumin, Serum 3.6 gm/dL (3.4-4.8); Albumin/Globulin Ratio 1.2 (1.2-2.2); Alkaline Phosphatase 80 U/L (46-116); Anion Gap 8 (7-16); Aspartate Amino Transferase 40 U/L (0-34); BUN/Creatinine Ratio 20 Ratio (12-20); Bilirubin,Total 0.6 mg/dL (0.3-1.2); Blood Urea Nitrogen 18 mg/dL (9-23); Calcium 8.7 mg/dL (8.3-10.6); Calcium (Corrected) 9.0 mg/dL (8.5-10.1); Carbon Dioxide 26.1 mMol/L (20.0-31.0); Chloride 94 mMol/L (98-107); Creatinine (Component) 0.9 mg/dL (0.6-1.3); Globulin 3.0 gm/dL (2.3-3.5); Glucose 99 mg/dL (74-106); Lipase 52 U/L (12-53); Magnesium 1.9 mg/dL (1.6-2.6); Osmolality,Calculated 258 (275-295); Potassium 4.6 mMol/L (3.4-5.1); Sodium 128 mMol/L (136-145); Total Protein 6.6 gm/dL (5.7-8.2); eGFR > 60 See Note
[2024-12-24 04:27] LABS: Ferritin 47 ng/mL (10.5-307.3); Iron 22 mcg/dL (65-175); Percent Iron Saturation 8 % (20-55); Total Iron Binding Capacity 262 mcg/dL (250-425); Unsaturated Iron Binding 240 (225-295)
--- NOTE | 2024-12-24 06:17 | PRELIM_ITS ---
CT scan of the abdomen and pelvis with intravenous contrast (axial sections with sagittal and coronal reformats) December 24, 2024 0503 hours Clinical History: rectal bleeding Comparison:December 06, 2024 Findings: There is small right pleural effusion, new since the prior examination. There is trace left pleural effusion. The liver, gallbladder, pancreas, spleen and adrenals are unremarkable. No evidence of bowel obstruction. The appendix is within normal limits. There is no mesenteric or retroperitoneal adenopathy.Again seen are vesical calculi. Prominent urinary bladder wall. There is mild prostatomegaly.There is no free fluid or free air. Percutaneous gastroenteric feeding tube.Small bilateral renal simple cysts.Bilateral renal cortical scarring. Moderate size hiatal hernia associated with peripheral fat stranding. Again seen aremultiple colonic diverticula without evidence of diverticulitis.There is rectal fecal distension with rectal wall thickening which may represent fecal impaction with proctitis. 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 Degenerative changes of the imaged portions of the spine. No acute fractures. Impression: No contrast extravasation in the stomach, small or large bowel loops to suggest active gastrointestinal hemorrhage at the time of examination. Constipation with rectal fecal distension and rectal wall thickening, which may represent fecal impaction with proctitis. Colonic diverticulosis without evidence of diverticulitis. Vesical calculi. Prostatomegaly. Small right pleural effusion, new since the prior examination. Other findings as described above. Report Electronically Signed By: Rebecca Herrera 12/24/2024 6:16:21 AM [EST]
[2024-12-24 09:03] LABS: Alanine Aminotransferase 58 U/L (10-49); Albumin, Serum 3.6 gm/dL (3.4-4.8); Albumin/Globulin Ratio 1.2 (1.2-2.2); Alkaline Phosphatase 81 U/L (46-116); Anion Gap 9 (7-16); Aspartate Amino Transferase 39 U/L (0-34); BUN/Creatinine Ratio 14 Ratio (12-20); Bilirubin,Total 0.8 mg/dL (0.3-1.2); Blood Urea Nitrogen 13 mg/dL (9-23); Calcium 8.6 mg/dL (8.3-10.6); Calcium (Corrected) 8.9 mg/dL (8.5-10.1); Carbon Dioxide 23.1 mMol/L (20.0-31.0); Chloride 94 mMol/L (98-107); Creatinine (Component) 0.9 mg/dL (0.6-1.3); Globulin 2.9 gm/dL (2.3-3.5); Glucose 91 mg/dL (74-106); Osmolality,Calculated 253 (275-295); Potassium 4.5 mMol/L (3.4-5.1); Sodium 126 mMol/L (136-145); Total Protein 6.5 gm/dL (5.7-8.2); eGFR > 60 See Note
[2024-12-24] MEDS: SODIUM CHLORIDE 0.9% 1000 ML 1,000 ML 50 ML IV (11:55)
[2024-12-24 12:47] LABS: Sodium 127 mMol/L (136-145)
--- NOTE | 2024-12-24 14:54 | PC.SS ---
Rounding note: EGD pending.
--- NOTE | 2024-12-24 16:34 | PD.RESPRO ---
Documentation for date of: 12/24/24 Subjective Subjective Interval history: Patient was seen and examined at bedside. A.m. vitals and labs reviewed. Patient is non-verbal at baseline. For pertinent labs: WBC 9.8, Hgb:10.3, Hct:29.4. Will continue IV protonix 40mg bid. NPO currently and possible EGD today. Exam Vital Signs Temp Pulse Resp BP Pulse Ox O2 Del Method 98.7 F 64 15 114/69 96 Room Air 12/24/24 15:45 12/24/24 15:45 12/24/24 15:45 12/24/24 15:45 12/24/24 15:45 12/24/24 15:45 Narrative Exam General: Nonverbal, cachectic HEENT: Dry mucous membranes. PERRL, EOMI. Anicteric Lungs: Clear to auscultation bilaterally Cardio: Normal S1/S2, regular rhythm, no murmurs, no JVD Abdomen: Soft, non-tender, no palpable masses, no guarding or rebound, PEG tube noted. Extremities: Symmetrical, RUE contracture, no peripheral edema , non-tender, peripheral pulses presents. Neuro: R side hemiparesis, L side able to move w/o difficulty, nonverbal and not able to follow commands. Objective Labs 12/25/24 05:10 12/25/24 05:10 Labs: Laboratory Results - last 24 hr 12/24/24 12/24/24 12/24/24 01:30 02:15 03:39 WBC 8.7 9.8 RBC 3.74 L 3.60 L Hgb 10.7 L 10.3 L Hct 30.5 L 29.4 L MCV 82 82 MCH 28.6 28.6 MCHC 35.1 35.0 RDW Std Deviation 43.6 43.8 Plt Count 527 H D 448 H D Neut % (Auto) 61 61 Lymph % (Auto) 21 21 [place] % (Auto) 12 12 Eos % (Auto) 5 5 Baso % (Auto) 1 1 Neut # (Auto) 5.3 6.0 Lymph # (Auto) 1.8 2.1 [place] # (Auto) 1.1 H 1.1 H Eos # (Auto) 0.4 0.5 Baso # (Auto) 0.1 0.1 Immature Gran # (Auto) 0.04 H 0.04 H Absolute Nucleated RBC 0.00 0.00 Immature Gran % 1 H 0 Nucleated RBC % 0 0 Retic Count (auto) 2.7 H Absolute Retic 98.3 H Immature Retic Fraction 20.9 H Retic Hgb Content CHr 29.3 PT 11.4 INR 1.0 APTT 34.9 Sodium 128 L Potassium 4.6 Chloride 94 L Carbon Dioxide 26.1 Anion Gap 8 BUN 18 Creatinine 0.9 Estim Creat Clear Calc Not Performed. eGFR > 60 BUN/Creatinine Ratio 20 Glucose 99 Calculated Osmolality 258 L Calcium 8.7 Corrected Calcium 9.0 Magnesium 1.9 Iron 22 L TIBC 262 Iron Saturation 8 L Unsat Iron Binding 240 Ferritin 47 Total Bilirubin 0.6 AST 40 H ALT 62 H Alkaline Phosphatase 80 Total Protein 6.6 Albumin 3.6 Globulin 3.0 Albumin/Globulin Ratio 1.2 Lipase 52 Blood Type A Positive Antibody Screen NEGATIVE Blood Bank Wristband ID Yes 12/24/24 12/24/24 07:54 12:08 WBC RBC Hgb Hct MCV MCH MCHC RDW Std Deviation Plt Count Neut % (Auto) Lymph % (Auto) [place] % (Auto) Eos % (Auto) Baso % (Auto) Neut # (Auto) Lymph # (Auto) [place] # (Auto) Eos # (Auto) Baso # (Auto) Immature Gran # (Auto) Absolute Nucleated RBC Immature Gran % Nucleated RBC % Retic Count (auto) Absolute Retic Immature Retic Fraction Retic Hgb Content CHr PT INR APTT Sodium 126 L 127 L Potassium 4.5 Chloride 94 L Carbon Dioxide 23.1 Anion Gap 9 BUN 13 Creatinine 0.9 Estim Creat Clear Calc Not Performed. eGFR > 60 BUN/Creatinine Ratio 14 Glucose 91 Calculated Osmolality 253 L Calcium 8.6 Corrected Calcium 8.9 Magnesium Iron TIBC Iron Saturation Unsat Iron Binding Ferritin Total Bilirubin 0.8 AST 39 H ALT 58 H Alkaline Phosphatase 81 Total Protein 6.5 Albumin 3.6 Globulin 2.9 Albumin/Globulin Ratio 1.2 Lipase Blood Type Antibody Screen Blood Bank Wristband ID Quality Measures Quality Measures none Advance care planning discussed with:: patient Assessment & Plan Assessment Current Active Medications: Generic Name Dose Route Start Last Admin Trade Name Freq PRN Reason Stop Dose Admin Acetaminophen 650 mg 12/24/24 03:06 Acetaminophen 325 Mg Tablet PO 01/23/25 03:05 Q6H PRN PAIN SCALE 1-3 (mild Sodium Chloride 1,000 mls @ 50 mls/hr 12/24/24 10:44 12/24/24 11:55 Ns IV 12/25/24 06:43 50 mls/hr .Q20H ONE Administration Ondansetron HCl 4 mg 12/24/24 03:06 Ondansetron Inj 2 Mg/Ml Inj 2 Ml IVP 01/23/25 03:05 Q6H PRN NAUSEA OR VOMITING Protocol Pantoprazole Sodium 40 mg 12/24/24 09:00 12/24/24 08:16 Pantoprazole Inj 40 Mg Vial IVP 01/23/25 08:59 40 mg BID AMY Administration Plan 69-year-old male with past medical history of 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 with a GI consultation for likely need for endoscopic evaluation. #GI bleed #Acute blood loss anemia likely upper vs. lower 2/2 to melena Presenting from SNF ([facility]) with bloody/dark bowel movements noted by staff Hx of Denise-Espinosa tear in the past; endoscopy done on 12/06 and 12/08 with endoclip placement Hgb of 10.7 w/ MCV of 82 likely 2/2 to acute blood loss but cannot r/o CYNTHIA, AOCD, vitamin deficiency; less likely to be myelosuppression, hemolytic anemia CTAP(12/24/2024): No abnormal contrast extravasation in the gastrointestinal tract, consider follow-up nuclear medicine gastrointestinal bleeding study as clinically warranted, also consider CTA abdomen and pelvis follow-up as clinically warranted Moderate bilateral renal scarring, Normal appendix, No bowel obstruction, Colonic diverticulosis, no diverticulitis, Subcentimeter bladder calculi., Atelectasis versus pneumonia right base with small right pleural effusion Plan: -GI consulted, appreciate recommendations -NPO -IV Protonix 40 BID -Monitor Hgb closely; transfuse if <7 -Follow-up on Iron panel, ferritin and reticulocyte count -Possible EGD today. # Thrombophilia Likely 2/2 to active bleeding leisure, inflammatory response Plan: -Monitor with morning labs #Hx of CVA with residual right-sided hemiparesis #Hx of hypertension #Hx of hyperlipidemia #Hx of dementia (nonverbal) Chronic medical conditions not pertinent to the following presentation Health Maintenance: Lines: PIV, PEG tube Diet: N.p.o. Bowel: Not needed GI prophylaxis: On IV Protonix 40 twice daily DVT prophylaxis: SCD Dispo: Pending GI consultation for upper GI bleed Code: DNR Assessment and plan discussed with my attending physician Dr. Cirilo Mcduffie (PGY-1)- Internal medicine resident Attending Provider Attestation/Addendum IAyla DO, attest that I was physically present for the ovalle portions of the service and evaluated the patient with the resident and I reviewed and discussed the case with the resident and agree with the resident's findings and plans of care as documented above Patient seen and eval this a.m. Patient is nonverbal but tracking with eyes. He is able to move his left arm and left leg, but right side appears to be contracted. Patient is pending endoscopy due to melena. Patient does have a history of Denise-Espinosa tear. Continue with Protonix at this time.
[2024-12-24 16:45] LABS: Sodium 127 mMol/L (136-145)
[2024-12-24] MEDS: DEXTROSE 5%-0.45% NS 1,000 ML 100 ML IV (17:10)
--- NOTE | 2024-12-24 18:35 | PD.IMCONS ---
HPI Data of Consult Requesting Physician: Abner Guillen DO Primary Care Provider: Physician No Primary/Family Consult Narrative Reason for consult: acute GI bleed melena History of present illness: No history obtained from the patient History from chart review as well as my previous consultation late last month 69 years male presented from the SNF/shelter with GI bleed in the form of melanotic stools Presenting hemoglobin hematocrit 10.7 and 30.5 with a platelet count of 527,000 and sodium 126 BUN/creatinine 39.9 Low osmolality at 253 Previous endoscopy done showed Denise-Espinosa tear requiring placement of endoclips and prior to discharge repeat endoscopy showed no evidence of bleeding and the clips in place At the GE junction CT scan of the abdomen pelvis showed with contrast colonic diverticulosis cc:: cc: Abner Guillen DO Review of Systems Review of Systems ROS Unobtainable: unobtainable due to medical condition Past Medical History Surgical History OTHER SURGICAL HX: As in the history of present illness Meds Home Medications and Allergies Home Medications ?Medication ?Instructions ?Recorded ?Confirmed ?Type tamsulosin 0.4 mg capsule 0.4 mg PO QDAY 09/16/23 12/24/24 History apixaban 5 mg tablet (Eliquis) 5 mg feeding tube BID 12/07/24 12/24/24 History Held on 12/10/24. Instructions: Resume on 12/16/24. Resume on 12/16/2024 atorvastatin 40 mg tablet 40 mg feeding tube QPM 12/07/24 12/24/24 History baclofen 5 mg tablet 2.5 mg feeding tube BID 12/07/24 12/24/24 History docusate sodium 100 mg tablet (DOK) 100 mg PO BID 12/07/24 12/24/24 History folic acid 1 mg tablet 1 mg feeding tube QDAY 12/07/24 12/24/24 History ipratropium 0.5 mg-albuterol 3 mg 3 ml inhalation Q4H PRN shortness 12/07/24 12/24/24 History (2.5 mg base)/3 mL nebulization of breath or wheezing soln Enema Rectal Enema (Sodium See Rx Instructions .Route 12/24/24 12/24/24 History Phosphates) .COMPLEX PRN constipation Pro-Stat oral liquid 30 ml feeding tube 1XD 12/24/24 12/24/24 History acetaminophen 325 mg capsule 325 mg feeding tube Q4H PRN pain 12/24/24 12/24/24 History amiodarone 200 mg tablet 200 mg feeding tube BID 12/24/24 12/24/24 History aspirin 81 mg chewable tablet 81 mg feeding tube QDAY 12/24/24 12/24/24 History bisacodyl 10 mg rectal suppository 10 mg NJ QDAY PRN constipation 12/24/24 12/24/24 History (Dulcolax (bisacodyl)) lansoprazole 30 mg delayed 30 mg feeding tube QDAY 12/24/24 12/24/24 History release,disintegrating tablet magnesium hydroxide 30 ml feeding tube .as needed PRN 12/24/24 12/24/24 History constipation Allergies Allergy/AdvReac Type Severity Reaction Status Date / Time No Known Allergies Allergy Verified 10/08/24 19:28 Exam Vital Signs Temp Pulse Resp BP Pulse Ox O2 Del Method 98.7 F 73 15 114/69 96 Room Air 12/24/24 15:45 12/24/24 16:00 12/24/24 15:45 12/24/24 15:45 12/24/24 15:45 12/24/24 15:45 Constitutional Comments: Chronically ill-appearing Routine Respiratory Exam Comments: Normal to auscultation Routine Abdominal Exam Comments: Soft nontender Results Labs 12/24/24 03:39 12/24/24 16:17 Labs: Short CBC 12/24/24 12/24/24 Range/Units 01:30 03:39 WBC 8.7 9.8 (3.8-10.6) Thou/mm3 Hgb 10.7 L 10.3 L (13.5-16.0) g/dL Hct 30.5 L 29.4 L (41.0-53.0) % Plt Count 527 H D 448 H D (140-440) Thou/mm3 BMP 12/24/24 12/24/24 12/24/24 03:39 07:54 12:08 Sodium 128 L 126 L 127 L Potassium 4.6 4.5 Chloride 94 L 94 L Carbon Dioxide 26.1 23.1 BUN 18 13 Creatinine 0.9 0.9 Glucose 99 91 Calcium 8.7 8.6 12/24/24 16:17 Sodium 127 L Potassium Chloride Carbon Dioxide BUN Creatinine Glucose Calcium Liver Function 12/24/24 12/24/24 Range/Units 03:39 07:54 Total Bilirubin 0.6 0.8 (0.3-1.2) mg/dL AST 40 H 39 H (0-34) U/L ALT 62 H 58 H (10-49) U/L Alkaline Phosphatase 80 81 (46-116) U/L Albumin 3.6 3.6 (3.4-4.8) gm/dL Assessment and Plan Additional Assessment & Plan Additional Plan: # Acute GI bleed with melena Plan Continue IV Protonix Serial CBC Correction of the hyponatremia Consent obtained for fiberoptic esophagogastroduodenoscopy with possible therapeutic intervention possible biopsy under intravenous moderate sedation scheduled for tomorrow Patient can have a clear liquid diet up until 10:00 tomorrow morning Other medical problems include Hyponatremia CVA with residual right-sided motor weakness Hypothyroidism Dementia BPH Thank you once again for the opportunity to participate in the care of this patient
[2024-12-24 20:24] LABS: Sodium 126 mMol/L (136-145)
[2024-12-25] VITALS (17 sets, daily range): BP systolic 91–148; BP diastolic 57–92; PULSE 62–78; RESP 11–20; TEMP 36.1–36.6; O2SAT 94–100; BMI 18.2
[2024-12-25 00:56] LABS: Sodium 127 mMol/L (136-145)
[2024-12-25] MEDS: DEXTROSE 5%-0.45% NS 1,000 ML 100 ML IV (03:15)
[2024-12-25 06:11] LABS: Basophils # (Auto) 0.1 Thou/mm3 (0.0-0.2); Basophils % (Auto) 1 % (0-2.5); Eosinophils # (Auto) 0.3 Thou/mm3 (0.0-0.5); Eosinophils % (Auto) 3 % (0-10); Hematocrit 30.6 % (41.0-53.0); Hemoglobin 10.6 g/dL (13.5-16.0); Immature Granulocytes Auto 0.05 Thou/mm3 (0.00-0.00); Lymphocytes # (Auto) 1.2 Thou/mm3 (1.0-4.8); Lymphocytes % (Auto) 13 % (10-50); Mean Corpuscular HGB Conc 34.6 g/dl (31.0-37.0); Mean Corpuscular Hemoglobin 28.3 pg (25.0-35.0); Mean Corpuscular Volume 82 fL (80-100); Monocytes # (Auto) 1.2 Thou/mm3 (0.0-0.8); Monocytes % (Auto) 13 % (0-12); Neutrophils # (Auto) 6.5 Thou/mm3 (1.8-7.7); Neutrophils % (Auto) 70 % (37-80); Nucleated Red Blood Cell # 0.00 Thou/mm3 (0.00-0.00); Nucleated Red Blood Cell % 0 /100 WBC (0); Platelet Count 473 Thou/mm3 (140-440); RDW Standard Deviation 43.1 fL (35.1-43.9); Red Blood Count 3.74 Miln/mm3 (4.50-5.90); White Blood Count 9.3 Thou/mm3 (3.8-10.6)
[2024-12-25] MEDS: SODIUM CHLORIDE 0.9% 1000 ML 1,000 ML 50 ML IV (06:14)
--- NOTE | 2024-12-25 06:29 | PC.NURSE ---
SEAN Weaver attempted to call pts daughter Leida oSsa at [phone] to sign consent for EGD, but she did not answer.
[2024-12-25 06:41] LABS: Alanine Aminotransferase 46 U/L (10-49); Albumin, Serum 3.7 gm/dL (3.4-4.8); Albumin/Globulin Ratio 1.3 (1.2-2.2); Alkaline Phosphatase 92 U/L (46-116); Anion Gap 10 (7-16); Aspartate Amino Transferase 28 U/L (0-34); BUN/Creatinine Ratio 14 Ratio (12-20); Bilirubin,Total 1.3 mg/dL (0.3-1.2); Blood Urea Nitrogen 13 mg/dL (9-23); Calcium 8.7 mg/dL (8.3-10.6); Calcium (Corrected) 8.9 mg/dL (8.5-10.1); Carbon Dioxide 22.3 mMol/L (20.0-31.0); Chloride 94 mMol/L (98-107); Creatinine (Component) 0.9 mg/dL (0.6-1.3); Globulin 2.9 gm/dL (2.3-3.5); Glucose 103 mg/dL (74-106); Osmolality,Calculated 253 (275-295); Potassium 4.1 mMol/L (3.4-5.1); Sodium 126 mMol/L (136-145); Total Protein 6.6 gm/dL (5.7-8.2); eGFR > 60 See Note
[2024-12-25 09:16] LABS: Sodium 124 mMol/L (136-145)
--- NOTE | 2024-12-25 09:41 | PC.SS ---
Follow up note: Pending EGD. Pt is from [facility] and will return.
--- NOTE | 2024-12-25 09:48 | ESPR_ITS ---
<Statement entered by Kayleen Cade MD - 01/01/25 14:16> I reviewed above note and agree with findings and plans. I have also personally examined the patient with medicine team and went over assessment and plan with medical team including international sourcing manager and resident physician. Documentation for date of: 12/25/24 Patient examined at bedside. Patient is nonverbal and unable to follow commands but alert. Concern for upper GI bleed as reported by nursing staff at [facility] which noted 1 bloody bowel movement. Patient was made n.p.o. and pending EGD. Moderate hyponatremia hypoosmolar isovolemic noted on labs this morning. Patient started on fluid restrictions. Zenobia 119. Nephrology consulted. Sodium Deficit 331.6 (desired Na of 140). Goal of 128 with upper limit no more than 130. Patient started on salt tablets 1 mg BID per nephrology. repeat Cxr per nephrology recommendations. NPO given EGD pending. Subjective Subjective Interval history: Patient was seen and examined at bedside. A.m. vitals and labs reviewed. Patient is non-verbal at baseline, but tracking with eyes. Can move left arm and leg, but right arm and leg seems to be contracted. For pertinent labs: WBC 9.3, Hgb:10.6, Hct:30.6. Will continue IV protonix 40mg bid. NPO currently and possible EGD today. Currently patient has hypoosmolar hyponatremia (Na: 124, Calculated osmolality: 253). Fluid restriction ordered and consulting nephrology. Exam Vital Signs Temp Pulse Resp BP Pulse Ox O2 Del Method 97.1 F 74 20 125/78 98 Room Air 12/25/24 08:00 12/25/24 08:00 12/25/24 08:00 12/25/24 08:00 12/25/24 08:00 12/25/24 08:00 Narrative Exam General: Nonverbal, cachectic HEENT: Dry mucous membranes. PERRL, EOMI. Anicteric Lungs: Clear to auscultation bilaterally Cardio: Normal S1/S2, regular rhythm, no murmurs, no JVD Abdomen: Soft, non-tender, no palpable masses, no guarding or rebound, PEG tube noted. Extremities: Symmetrical, RUE contracture, no peripheral edema , non-tender, peripheral pulses presents. Neuro: R side hemiparesis, L side able to move w/o difficulty, nonverbal and not able to follow commands. Objective Labs 12/25/24 05:10 12/25/24 15:26 Labs: Laboratory Results - last 24 hr 12/24/24 12/24/24 12/24/24 12:08 16:17 19:41 WBC RBC Hgb Hct MCV MCH MCHC RDW Std Deviation Plt Count Neut % (Auto) Lymph % (Auto) [place] % (Auto) Eos % (Auto) Baso % (Auto) Neut # (Auto) Lymph # (Auto) [place] # (Auto) Eos # (Auto) Baso # (Auto) Immature Gran # (Auto) Absolute Nucleated RBC Immature Gran % Nucleated RBC % Sodium 127 L 127 L 126 L Potassium Chloride Carbon Dioxide Anion Gap BUN Creatinine Estim Creat Clear Calc eGFR BUN/Creatinine Ratio Glucose Calculated Osmolality Calcium Corrected Calcium Total Bilirubin AST ALT Alkaline Phosphatase Total Protein Albumin Globulin Albumin/Globulin Ratio 12/25/24 12/25/24 12/25/24 00:19 05:10 08:34 WBC 9.3 RBC 3.74 L Hgb 10.6 L Hct 30.6 L MCV 82 MCH 28.3 MCHC 34.6 RDW Std Deviation 43.1 Plt Count 473 H Neut % (Auto) 70 Lymph % (Auto) 13 [place] % (Auto) 13 H Eos % (Auto) 3 Baso % (Auto) 1 Neut # (Auto) 6.5 Lymph # (Auto) 1.2 [place] # (Auto) 1.2 H Eos # (Auto) 0.3 Baso # (Auto) 0.1 Immature Gran # (Auto) 0.05 H Absolute Nucleated RBC 0.00 Immature Gran % 1 H Nucleated RBC % 0 Sodium 127 L 126 L 124 L Potassium 4.1 Chloride 94 L Carbon Dioxide 22.3 Anion Gap 10 BUN 13 Creatinine 0.9 Estim Creat Clear Calc Not Performed. eGFR > 60 BUN/Creatinine Ratio 14 Glucose 103 Calculated Osmolality 253 L Calcium 8.7 Corrected Calcium 8.9 Total Bilirubin 1.3 H D AST 28 ALT 46 Alkaline Phosphatase 92 Total Protein 6.6 Albumin 3.7 Globulin 2.9 Albumin/Globulin Ratio 1.3 Quality Measures Quality Measures none Advance care planning discussed with:: patient Assessment & Plan Assessment Current Active Medications: Generic Name Dose Route Start Last Admin Trade Name Freq PRN Reason Stop Dose Admin Acetaminophen 650 mg 12/24/24 03:06 Acetaminophen 325 Mg Tablet PO 01/23/25 03:05 Q6H PRN PAIN SCALE 1-3 (mild Sodium Chloride 1,000 mls @ 50 mls/hr 12/25/24 05:59 12/25/24 06:14 Ns IV 01/24/25 05:58 50 mls/hr .Q20H AMY Administration Ondansetron HCl 4 mg 12/24/24 03:06 Ondansetron Inj 2 Mg/Ml Inj 2 Ml IVP 01/23/25 03:05 Q6H PRN NAUSEA OR VOMITING Protocol Pantoprazole Sodium 40 mg 12/24/24 09:00 12/25/24 08:41 Pantoprazole Inj 40 Mg Vial IVP 01/23/25 08:59 40 mg BID AMY Administration Plan 69-year-old male with past medical history of 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 with a GI consultation for likely need for endoscopic evaluation. #GI bleed #Acute blood loss anemia #Noromocytic Anemia likely upper vs. lower 2/2 to melena Presenting from SNF ([facility]) with bloody/dark bowel movements noted by staff Hx of Denise-Espinosa tear in the past; endoscopy done on 12/06 and 12/08 with endoclip placement Hgb of 10.7 w/ MCV of 82 likely 2/2 to acute blood loss but cannot r/o CYNTHIA, AOCD, vitamin deficiency; less likely to be myelosuppression, hemolytic anemia CTAP(12/24/2024): No abnormal contrast extravasation in the gastrointestinal tract, consider follow-up nuclear medicine gastrointestinal bleeding study as clinically warranted, also consider CTA abdomen and pelvis follow-up as clinically warranted Moderate bilateral renal scarring, Normal appendix, No bowel obstruction, Colonic diverticulosis, no diverticulitis, Subcentimeter bladder calculi., Atelectasis versus pneumonia right base with small right pleural effusion Plan: -GI consulted, appreciate recommendations -NPO -IV Protonix 40 BID -Monitor Hgb closely; transfuse if <7 -Follow-up on Iron panel, ferritin and reticulocyte count -Possible EGD today. #Hypoosmolar Moderate Hyponatremia, Isovolemic Moderate hyponatremia given sodium of 124, with low osmolarity of 253 appearing isovolemic. Urine electrolytes obtained, noted to have Na of 119, thus Zenobia>20. Likely secondary to SIADH vs renal failure vs hypothyrodism which less likely as previous TSH showed subclincal hyperthyroidism with TSH 0.25 and Free T4 1.31. Na: 124, Calculated osmolality: 253 Plan: -GOAL Na: 128-upper limit 130 -Sodium 1 gram BID -if no clinical improvement, re-order TSH/Free T4 -Fluid restriction ordered -Nephrology consulted, appreciate recommendations. #Thrombocytosis Likely 2/2 to active bleeding leisure, inflammatory response vs KAREN 2 mutation vs malignancy, less likely Plan: -Monitor with morning labs #Hx of CVA with residual right-sided hemiparesis #Hx of hypertension #Hx of hyperlipidemia #Hx of dementia (nonverbal) Chronic medical conditions not pertinent to the following presentation Health Maintenance: Lines: PIV, PEG tube Diet: N.p.o. Bowel: Not needed GI prophylaxis: On IV Protonix 40 twice daily DVT prophylaxis: SCD Dispo: Pending GI consultation for upper GI bleed Code: DNR Assessment and plan discussed with my attending physician Dr. Cade and Dr. Hogue (PGY-2) Dr. Mcduffie (PGY-1)- Internal medicine resident - The patient's plan was discussed with attending Dr. Rayo Hogue MD PGY2 Internal Medicine
[2024-12-25 11:29] LABS: Sodium 124 mMol/L (136-145)
--- NOTE | 2024-12-25 11:34 | PC.DIETICIAN ---
Dietitian consult. When medically feasible, start TF if needed as primary nutrition: 1. Jevity 1.2 @ 70ml/hr x24 hrs provides 1680ml total vol, 2016kcal, 92g protein, 1355ml FW. If no IVF give 100ml Q 4hrs or per MD as primary nutrition [id number] (32ml/kg) 2. Per paper SNF orders: DYS 1 puree w/ Mildy Thick level 2 liquid, 2gm Na+ or consult [facility] if able to start oral diet
--- NOTE | 2024-12-25 12:58 | PC.NURSE ---
Called pt's daughter Leida Sosa and left vm and phone number to call back.
[2024-12-25 13:13] LABS: Chloride,Urine Random 111.0 mMol/L (55.0-125.0); Potassium,Urine Random 34 mMol/L (12-62); Sodium,Urine Random 119.0 mMol/L (20.0-110.0)
--- NOTE | 2024-12-25 13:17 | PC.NURSE ---
Called pt's next of kin Halina Hanks [phone] regarding pt needing consent for EGD. Halina states she will come in and sign consent for procedure.
--- NOTE | 2024-12-25 14:20 | PD.RESCONSUL ---
HPI Data of Consult Consult date: 12/25/24 Requesting Physician: Kayleen Cade MD Admitting Provider: Abner Guillen DO Attending Provider: Kayleen Cade MD Primary Care Provider: Physician No Primary/Family Consult Narrative Reason for consult: Hypoosmolar hyponatremia History of present illness: Mr. 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 Given patient not being verbal most of the history was taken from chart review at this time. Patient was found to have today of episode of bloody stools prior to coming to the ED. Patient's vital signs have been stable since admission. Hemoglobin has been stable in the 10's despite GI bleed. CT AP (12/25) concerning for atelectasis versus pneumonia right base with small right pleural effusion. Recent admission on 12/06/2024 from [facility] for management of pyelonephritis and upper GI bleed. Today patient was seen and examined. No acute events overnight noted. Patient noted to be at his baseline (per chart review) awake, non-verbal. Not in any acute distress. Review of systems not able to be fully assessed due to patient being non-verbal. Nephrology consultation requested for hyponatremia. Sodium dropped to 124. cc:: cc: Kayleen Cade MD Review of Systems Review of Systems ROS Unobtainable: unobtainable due to medical condition Past Medical History Past Medical History NEUROLOGIC: Positive Neurological Disorders, Cerebrovascular Accident, Transient Ischemic Attacks (TIA) and Dementia CARDIAC: Positive Cardiac Disorders, Atherosclerotic Heart Disease, Peripheral Vascular Disease, Hypercholesterolemia and Hypertension GASTROINTESTINAL: Positive Gastrointestinal Disorders and Gastroesophageal Reflux Disease GENITOURINARY: Positive Benign Prostatic Hyperplasia PSYCHO/SOCIAL: Positive Psychiatric Problems OTHER HISTORY: Positive Hospitalization and Falls Surgical History SURGICAL: Positive Abdominal Surgery Exam Vital Signs Temp Pulse Resp BP Pulse Ox O2 Del Method 97 F 65 18 115/70 96 Room Air 12/25/24 12:12/25/24 12:12/25/24 12:12/25/24 12:12/25/24 12:00 12/25/24 12:00 Narrative Exam GENERAL APPEARANCE: skinny appearing man, no acute distress. HEENT: ?NC, AT. MMM. EOMI, clear conjunctiva. NECK: ?Supple without lymphadenopathy.? HEART:? Normal rate and regular rhythm, no m/r/g LUNGS:? CTAB, moving air well. No crackles or wheezes are heard. ABDOMEN: ?Soft, nontender, nondistended with good bowel sounds heard. Peg tube present BACK: No CVAT, no obvious deformity. EXTREMITIES: ?Without cyanosis, clubbing or edema. NEUROLOGICAL: ?Patient not verbal or responsive to commands Skin: ?Warm and dry without any rash. Results Labs 12/26/24 03:33 12/26/24 03:33 Labs: Short CBC 12/25/24 Range/Units 05:10 WBC 9.3 (3.8-10.6) Thou/mm3 Hgb 10.6 L (13.5-16.0) g/dL Hct 30.6 L (41.0-53.0) % Plt Count 473 H (140-440) Thou/mm3 BMP 12/24/24 12/24/24 12/25/24 16:17 19:41 00:19 Sodium 127 L 126 L 127 L Potassium Chloride Carbon Dioxide BUN Creatinine Glucose Calcium 12/25/24 12/25/24 12/25/24 05:10 08:34 10:42 Sodium 126 L 124 L 124 L Potassium 4.1 Chloride 94 L Carbon Dioxide 22.3 BUN 13 Creatinine 0.9 Glucose 103 Calcium 8.7 Liver Function 12/25/24 Range/Units 05:10 Total Bilirubin 1.3 H D (0.3-1.2) mg/dL AST 28 (0-34) U/L ALT 46 (10-49) U/L Alkaline Phosphatase 92 (46-116) U/L Albumin 3.7 (3.4-4.8) gm/dL Quality Measures Quality Measures VTE prophylaxis Advance care planning discussed with:: other Medications Home Medications and Allergies Home Medications ?Medication ?Instructions ?Recorded ?Confirmed ?Type tamsulosin 0.4 mg capsule 0.4 mg PO QDAY 09/16/23 12/24/24 History apixaban 5 mg tablet (Eliquis) 5 mg feeding tube BID 12/07/24 12/24/24 History Held on 12/10/24. Instructions: Resume on 12/16/24. Resume on 12/16/2024 atorvastatin 40 mg tablet 40 mg feeding tube QPM 12/07/24 12/24/24 History baclofen 5 mg tablet 2.5 mg feeding tube BID 12/07/24 12/24/24 History docusate sodium 100 mg tablet (DOK) 100 mg PO BID 12/07/24 12/24/24 History folic acid 1 mg tablet 1 mg feeding tube QDAY 12/07/24 12/24/24 History ipratropium 0.5 mg-albuterol 3 mg 3 ml inhalation Q4H PRN shortness 12/07/24 12/24/24 History (2.5 mg base)/3 mL nebulization of breath or wheezing soln Enema Rectal Enema (Sodium See Rx Instructions .Route 12/24/24 12/24/24 History Phosphates) .COMPLEX PRN constipation Pro-Stat oral liquid 30 ml feeding tube 1XD 12/24/24 12/24/24 History acetaminophen 325 mg capsule 325 mg feeding tube Q4H PRN pain 12/24/24 12/24/24 History amiodarone 200 mg tablet 200 mg feeding tube BID 12/24/24 12/24/24 History aspirin 81 mg chewable tablet 81 mg feeding tube QDAY 12/24/24 12/24/24 History bisacodyl 10 mg rectal suppository 10 mg ME QDAY PRN constipation 12/24/24 12/24/24 History (Dulcolax (bisacodyl)) lansoprazole 30 mg delayed 30 mg feeding tube QDAY 12/24/24 12/24/24 History release,disintegrating tablet magnesium hydroxide 30 ml feeding tube .as needed PRN 12/24/24 12/24/24 History constipation Allergies Allergy/AdvReac Type Severity Reaction Status Date / Time No Known Allergies Allergy Verified 10/08/24 19:28 Visit Medications Acetaminophen (Acetaminophen 325 Mg Tablet) 650 mg PO Q6H PRN PRN Reason: PAIN SCALE 1-3 (mild Stop: 01/23/25 03:05 Ondansetron HCl (Ondansetron Inj 2 Mg/Ml Inj 2 Ml) 4 mg IVP Q6H PRN; Protocol PRN Reason: NAUSEA OR VOMITING Stop: 01/23/25 03:05 Pantoprazole Sodium (Pantoprazole Inj 40 Mg Vial) 40 mg IVP BID AMY Stop: 01/23/25 08:59 Last Admin: 12/25/24 08:41 Dose: 40 mg Discontinued Medications Sodium Chloride (Ns) 1,000 mls @ 50 mls/hr IV .Q20H ONE Stop: 12/25/24 06:43 Last Admin: 12/24/24 11:55 Dose: 50 mls/hr Dextrose/Sodium Chloride (D5-1/2ns) 1,000 mls @ 100 mls/hr IV .Q10H AMY Stop: 01/23/25 16:59 Last Infusion: 12/25/24 06:12 Dose: 0 mls/hr Sodium Chloride (Ns) 1,000 mls @ 50 mls/hr IV .Q20H AMY Stop: 01/24/25 05:58 Last Admin: 12/25/24 06:14 Dose: 50 mls/hr Lidocaine HCl (Lidocaine Jelly 2% (Urojet) 10 Ml Tube) 0 ml TOP X1 ONE Stop: 12/24/24 04:01 Last Admin: 12/24/24 04:07 Dose: Not Given Assessment & Plan Plan 69-year-old male with past medical history of 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 with a GI consultation for likely need for endoscopic evaluation. Nephrology consulted for hypoosmolar hyponatremia management. #hypo-osmolar hyponatremia Patient has a baseline of non-verbal, not responsive to commands. Given this, patient does not appear to have had a change in mental status. Patient does not appear fluid overloaded. Patient's hypoosmolar hyponatremia persisted despite being given NS and dextrose fluids. Serum Sodium has been in the mid 120s with serum osmols at 253. Urine osmolality estimated to be 510 mOsm/kg based on urine specific gravity. Urine sodium mildly elevated at 119. TSH from 12/08/2024 low at 0.25. Ddx's include, but not limited to, SIADH, adrenal insufficiency, hypo-aldosteronism. Plan -Started 1 gm NaCl tabs BID -Continue fluid restriction -UA ordered, f/u -CXR ordered for pneumonia vs atelectasis on CT AP, f/u -ctm sodium correction #GI bleed #Acute blood loss anemia # Thrombophilia #Hx of CVA with residual right-sided hemiparesis #Hx of hypertension #Hx of hyperlipidemia #Hx of dementia (nonverbal) management for remainder of problems through the primary team. Thank you for allowing us to be apart of the care team for Mr. Doan Plan of care discussed with attending, Dr. Francisco Randall MD PGY-1 Attending Provider Attestation/Addendum Patient seen and examined with resident physician Dr. Randall. Note reviewed, agree with findings and recommendations with changes made. Patient with hyponatremia-clinically looks rather euvolemic. Suspect underlying SIADH with urine sodium greater than 100. Hold off on fluids-gave salt tablets. Will monitor serum sodium closely. No need for 3% hypertonic saline at this point. Thank you Kayleen for allowing me to participate in the care of Mr. Doan
--- NOTE | 2024-12-25 14:26 | XR_ITS ---
Examination: AP chest single view TECHNIQUE: Portable AP semiupright chest single view Date and time: December 25, 2024 1500 hours Comparison December 06, 2024 INDICATIONS: Gastrointestinal bleeding this week FINDINGS: Normal heart size Mild vascular congestion. No lobar pneumonia or pulmonary edema Prominent osteopenia IMPRESSION: Mild vascular congestion
[2024-12-25 16:09] LABS: Sodium 125 mMol/L (136-145)
[2024-12-25 16:13] LABS: Collection Type, Urine Catheter; Squamous Epithelial Cell,Urine 0 /hpf (0-5)
[2024-12-25 16:57] LABS: Bilirubin,Urine Negative (Negative); Blood,Urine Trace (Negative); Clarity,Urine Clear (Clear/Hazy); Color,Urine Lt-Yellow (Lt Yel-Yel); Glucose, Urine Negative (Negative); Ketones,Urine Negative (Negative); Leukocyte Esterase,Urine Negative (Negative); Nitrite,Urine Negative (Negative); PH,Urine 7.0 (5.0-7.0); Protein,Urine Negative (Neg - Trace); RBC,Urine 8 /hpf (0-3); Specific Gravity,Urine 1.014 (1.001-1.035); Urobilinogen,Urine Negative mg/dL (0.0-1.0); WBC,Urine 1 /hpf (0-5)
--- NOTE | 2024-12-25 19:23 | SUR.PHASEI ---
pt received from OR in recovery bay 5. pt asleep but responds to voice, breathing unlabored on room air. v/s stable. report received from Lucia ESTRADA.
--- NOTE | 2024-12-25 19:55 | SUR.PHASEI ---
pt asleep but responds to voice and touch. breathing unlabored on room air. v/s stable. report called to Shruthi Mijares. pt will be transferred to room at this time.
[2024-12-25] MEDS: NA SU/NAHCO3/KC/PEG (Golytely) 4,000 ML BTL 4000 ML NG (20:07)
--- NOTE | 2024-12-25 20:16 | PC.NURSE ---
MD Brand made aware of BP 92/57, pt is on Amiodarone tab tonight, per it's okay to give this meds for tonight dose.
[2024-12-25] MEDS: ATORVASTATIN CALCIUM 20 MG TABLET 40 MG GT (20:20)
[2024-12-25] MEDS: SODIUM CHLORIDE 1 GM TABLET GT (20:21)
[2024-12-25] MEDS: AMIODARONE HCL 200 MG TABLET PO (20:21)
[2024-12-25 21:11] LABS: Sodium 125 mMol/L (136-145)
[2024-12-25 22:55] LABS: Sodium 126 mMol/L (136-145)
[2024-12-26] VITALS (10 sets, daily range): BP systolic 97–121; BP diastolic 60–82; PULSE 55–80; RESP 13–18; TEMP 36.3–36.6; O2SAT 92–96
[2024-12-26 03:49] LABS: Basophils # (Auto) 0.1 Thou/mm3 (0.0-0.2); Basophils % (Auto) 1 % (0-2.5); Eosinophils # (Auto) 0.2 Thou/mm3 (0.0-0.5); Eosinophils % (Auto) 3 % (0-10); Hematocrit 32.7 % (41.0-53.0); Hemoglobin 11.3 g/dL (13.5-16.0); Immature Granulocytes Auto 0.04 Thou/mm3 (0.00-0.00); Lymphocytes # (Auto) 1.4 Thou/mm3 (1.0-4.8); Lymphocytes % (Auto) 18 % (10-50); Mean Corpuscular HGB Conc 34.6 g/dl (31.0-37.0); Mean Corpuscular Hemoglobin 28.0 pg (25.0-35.0); Mean Corpuscular Volume 81 fL (80-100); Monocytes # (Auto) 1.1 Thou/mm3 (0.0-0.8); Monocytes % (Auto) 15 % (0-12); Neutrophils # (Auto) 4.6 Thou/mm3 (1.8-7.7); Neutrophils % (Auto) 62 % (37-80); Nucleated Red Blood Cell # 0.00 Thou/mm3 (0.00-0.00); Nucleated Red Blood Cell % 0 /100 WBC (0); Platelet Count 437 Thou/mm3 (140-440); RDW Standard Deviation 42.5 fL (35.1-43.9); Red Blood Count 4.03 Miln/mm3 (4.50-5.90); White Blood Count 7.4 Thou/mm3 (3.8-10.6)
[2024-12-26 04:01] LABS: Alanine Aminotransferase 42 U/L (10-49); Albumin, Serum 3.7 gm/dL (3.4-4.8); Albumin/Globulin Ratio 1.2 (1.2-2.2); Alkaline Phosphatase 92 U/L (46-116); Anion Gap 11 (7-16); Aspartate Amino Transferase 31 U/L (0-34); BUN/Creatinine Ratio 15 Ratio (12-20); Bilirubin,Total 1.5 mg/dL (0.3-1.2); Blood Urea Nitrogen 12 mg/dL (9-23); Calcium 8.9 mg/dL (8.3-10.6); Calcium (Corrected) 9.1 mg/dL (8.5-10.1); Carbon Dioxide 21.5 mMol/L (20.0-31.0); Chloride 96 mMol/L (98-107); Creatinine (Component) 0.8 mg/dL (0.6-1.3); Estimated Creatinine Clearance 68.9 mL/min (>60); Globulin 3.0 gm/dL (2.3-3.5); Glucose 85 mg/dL (74-106); Magnesium 1.5 mg/dL (1.6-2.6); Osmolality,Calculated 255 (275-295); Phosphorous 3.1 mg/dL (2.4-5.1); Potassium 4.4 mMol/L (3.4-5.1); Sodium 128 mMol/L (136-145); Total Protein 6.7 gm/dL (5.7-8.2); eGFR > 60 See Note
[2024-12-26] MEDS: NA SU/NAHCO3/KC/PEG (Golytely) 4,000 ML BTL 4000 ML NG ×2 (05:48→16:37)
[2024-12-26 07:54] LABS: Sodium 129 mMol/L (136-145)
[2024-12-26] MEDS: Magnesium Sulfate 4 GM Ivpb 4 GM/50 ML BAG IV (07:55)
[2024-12-26] MEDS: AMIODARONE HCL 200 MG TABLET GT ×2 (08:00→20:02)
[2024-12-26] MEDS: SODIUM CHLORIDE 1 GM TABLET GT ×2 (08:01→20:03)
[2024-12-26] MEDS: FOLIC ACID 1 MG TABLET GT (08:02)
--- NOTE | 2024-12-26 09:17 | PD.RESPRO ---
Documentation for date of: 12/26/24 Subjective Subjective Interval history: Mr. 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 Given patient not being verbal most of the history was taken from chart review at this time. Patient was found to have today of episode of bloody stools prior to coming to the ED. Patient's vital signs have been stable since admission. Hemoglobin has been stable in the 10's despite GI bleed. CT AP (12/25) concerning for atelectasis versus pneumonia right base with small right pleural effusion. Recent admission on 12/06/2024 from [facility] for management of pyelonephritis and upper GI bleed. 12/25/2024 Patient was seen and examined. No acute events overnight noted. Patient noted to be at his baseline (per chart review) awake, non-verbal. Not in any acute distress. Review of systems not able to be fully assessed due to patient being non-verbal.Nephrology consultation requested for hyponatremia. Sodium dropped to 124. 12/26/2024 Patient had upper gi endoscopy yesterday. No acute events overnight. Vital signs are stable. Patient's alertness and orientation appears unchanged. Review of systems not able to be fully assessed due to patient being non-verbal and non-resonsive to commands. Patients Sodium improved to 129 after fluid restriction and NaCl tablets. Exam Vital Signs Temp Pulse Resp BP Pulse Ox O2 Del Method O2 Flow Rate 97.4 F 65 14 113/72 96 Room Air 3 12/26/24 07:30 12/26/24 08:00 12/26/24 07:30 12/26/24 08:00 12/26/24 07:30 12/26/24 07:30 12/25/24 19:13 Narrative Exam GENERAL APPEARANCE: skinny appearing man, no acute distress. HEENT: ?NC, AT. MMM. EOMI, clear conjunctiva. NECK: ?Supple without lymphadenopathy.? HEART:? Normal rate and regular rhythm, no m/r/g LUNGS:? CTAB, moving air well. No crackles or wheezes are heard. ABDOMEN: ?Soft, nontender, nondistended with good bowel sounds heard. Peg tube present BACK: No CVAT, no obvious deformity. EXTREMITIES: ?Without cyanosis, clubbing or edema. NEUROLOGICAL: ?Patient not verbal or responsive to commands Skin: ?Warm and dry without any rash. Objective Labs 12/26/24 03:33 12/26/24 10:58 Labs: Laboratory Results - last 24 hr 12/25/24 12/25/24 12/25/24 10:42 12:51 15:26 WBC RBC Hgb Hct MCV MCH MCHC RDW Std Deviation Plt Count Neut % (Auto) Lymph % (Auto) [place] % (Auto) Eos % (Auto) Baso % (Auto) Neut # (Auto) Lymph # (Auto) [place] # (Auto) Eos # (Auto) Baso # (Auto) Immature Gran # (Auto) Absolute Nucleated RBC Immature Gran % Nucleated RBC % Sodium 124 L 125 L Potassium Chloride Carbon Dioxide Anion Gap BUN Creatinine Estim Creat Clear Calc eGFR BUN/Creatinine Ratio Glucose Calculated Osmolality Calcium Corrected Calcium Phosphorus Magnesium Total Bilirubin AST ALT Alkaline Phosphatase Total Protein Albumin Globulin Albumin/Globulin Ratio Ur Collection Type Catheter Urine Color Lt-Yellow Urine Clarity Clear Urine pH 7.0 Ur Specific [place] 1.014 Urine Protein Negative Urine Glucose (UA) Negative Urine Ketones Negative Urine Blood Trace Urine Nitrite Negative Urine Bilirubin Negative Urine Urobilinogen (Auto) Negative Ur Leukocyte Esterase Negative Urine RBC 8 H Urine WBC 1 Ur Squamous Epith Cells 0 Urine Bacteria None Ur Random Sodium 119.0 H Ur Random Potassium 34 Ur Random Chloride 111.0 12/25/24 12/25/24 12/26/24 20:35 22:37 03:33 WBC 7.4 RBC 4.03 L Hgb 11.3 L Hct 32.7 L MCV 81 MCH 28.0 MCHC 34.6 RDW Std Deviation 42.5 Plt Count 437 D Neut % (Auto) 62 Lymph % (Auto) 18 [place] % (Auto) 15 H Eos % (Auto) 3 Baso % (Auto) 1 Neut # (Auto) 4.6 Lymph # (Auto) 1.4 [place] # (Auto) 1.1 H Eos # (Auto) 0.2 Baso # (Auto) 0.1 Immature Gran # (Auto) 0.04 H Absolute Nucleated RBC 0.00 Immature Gran % 1 H Nucleated RBC % 0 Sodium 125 L 126 L 128 L Potassium 4.4 Chloride 96 L Carbon Dioxide 21.5 Anion Gap 11 BUN 12 Creatinine 0.8 Estim Creat Clear Calc 68.9 eGFR > 60 BUN/Creatinine Ratio 15 Glucose 85 Calculated Osmolality 255 L Calcium 8.9 Corrected Calcium 9.1 Phosphorus 3.1 Magnesium 1.5 L Total Bilirubin 1.5 H AST 31 ALT 42 Alkaline Phosphatase 92 Total Protein 6.7 Albumin 3.7 Globulin 3.0 Albumin/Globulin Ratio 1.2 Ur Collection Type Urine Color Urine Clarity Urine pH Ur Specific [place] Urine Protein Urine Glucose (UA) Urine Ketones Urine Blood Urine Nitrite Urine Bilirubin Urine Urobilinogen (Auto) Ur Leukocyte Esterase Urine RBC Urine WBC Ur Squamous Epith Cells Urine Bacteria Ur Random Sodium Ur Random Potassium Ur Random Chloride 12/26/24 07:18 WBC RBC Hgb Hct MCV MCH MCHC RDW Std Deviation Plt Count Neut % (Auto) Lymph % (Auto) [place] % (Auto) Eos % (Auto) Baso % (Auto) Neut # (Auto) Lymph # (Auto) [place] # (Auto) Eos # (Auto) Baso # (Auto) Immature Gran # (Auto) Absolute Nucleated RBC Immature Gran % Nucleated RBC % Sodium 129 L Potassium Chloride Carbon Dioxide Anion Gap BUN Creatinine Estim Creat Clear Calc eGFR BUN/Creatinine Ratio Glucose Calculated Osmolality Calcium Corrected Calcium Phosphorus Magnesium Total Bilirubin AST ALT Alkaline Phosphatase Total Protein Albumin Globulin Albumin/Globulin Ratio Ur Collection Type Urine Color Urine Clarity Urine pH Ur Specific [place] Urine Protein Urine Glucose (UA) Urine Ketones Urine Blood Urine Nitrite Urine Bilirubin Urine Urobilinogen (Auto) Ur Leukocyte Esterase Urine RBC Urine WBC Ur Squamous Epith Cells Urine Bacteria Ur Random Sodium Ur Random Potassium Ur Random Chloride Quality Measures Quality Measures VTE prophylaxis Advance care planning discussed with:: other Assessment & Plan Assessment Current Active Medications: Generic Name Dose Route Start Last Admin Trade Name Freq PRN Reason Stop Dose Admin Acetaminophen 650 mg 12/25/24 23:29 Acetaminophen Shae 325 Mg/10 Ml Udc GT 01/24/25 23:28 Q6HR PRN Pain 1-3 Or Fever > 100.1 Albuterol/Ipratropium 3 ml 12/25/24 15:09 Albuterol/Ipratropium (Duoneb) Rt Shae 3 Ml Nebu INH 01/24/25 15:08 Q4H PRN shortness of breath or wheezing Amiodarone HCl 200 mg 12/26/24 09:00 12/26/24 08:00 Amiodarone Hcl 200 Mg Tablet GT 01/25/25 08:59 200 mg BID AMY Administration Atorvastatin Calcium 40 mg 12/25/24 21:00 12/25/24 20:20 Atorvastatin Calcium 20 Mg Tablet GT 01/24/25 20:59 40 mg QPM AMY Administration Bisacodyl 10 mg 12/25/24 15:09 Bisacodyl 10 Mg Supp VT 01/24/25 15:08 QDAY PRN constipation Protocol Folic Acid 1 mg 12/26/24 09:00 12/26/24 08:02 Folic Acid 1 Mg Tablet GT 01/25/25 08:59 1 mg QDAY AMY Administration Magnesium Sulfate 4 gm in 50 mls @ 12.5 mls/hr 12/26/24 07:22 12/26/24 07:55 Magnesium Sulfate Ivpb IV 12/26/24 11:21 12.5 mls/hr X1 ONE Administration Home Medication- 2.5 mg 12/25/24 15:15 12/26/24 08:01 Please Speak With PO 01/24/25 15:14 Not Given Patient Caregiver To BID AMY Have Rx Brought To [facility] Ondansetron HCl 4 mg 12/24/24 03:06 Ondansetron Inj 2 Mg/Ml Inj 2 Ml IVP 01/23/25 03:05 Q6H PRN NAUSEA OR VOMITING Protocol Pantoprazole Sodium 40 mg 12/24/24 09:00 12/26/24 08:02 Pantoprazole Inj 40 Mg Vial IVP 01/23/25 08:59 40 mg BID AMY Administration Sodium Chloride 1 gm 12/25/24 14:30 12/26/24 08:01 Sodium Chloride 1 Gm Tablet GT 01/24/25 14:29 1 gm BID AMY Administration Tamsulosin HCl 0.4 mg 12/26/24 09:00 12/26/24 08:00 Tamsulosin Hcl 0.4 Mg Capsule GT 01/25/25 08:59 Not Given QDAY AMY Plan 69-year-old male with past medical history of 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 with a GI consultation for likely need for endoscopic evaluation. Nephrology consulted for hypoosmolar hyponatremia management. #hypo-osmolar hyponatremia Patient has a baseline of non-verbal, not responsive to commands. Given this, patient does not appear to have had a change in mental status. Patient does not appear fluid overloaded. Patient's hypoosmolar hyponatremia persisted despite being given NS and dextrose fluids. Serum Sodium has been in the mid 120s with serum osmols low at 253. Ddx's include, but not limited to, SIADH, adrenal insufficiency. Plan -Continue 1 gm NaCl tabs BID -Plan for NaCl tabs once discharged -Continue fluid restriction -ctm sodium correction #GI bleed #Acute blood loss anemia # Thrombophilia #Hx of CVA with residual right-sided hemiparesis #Hx of hypertension #Hx of hyperlipidemia #Hx of dementia (nonverbal) management for remainder of problems through the primary team. Thank you for allowing us to be apart of the care team for Mr. Doan Plan of care discussed with attending, Dr. Francisco Randall MD PGY-1 Attending Provider Attestation/Addendum Patient seen and examined with resident physician Dr. Randall. Note reviewed, agree with findings and recommendations with changes made. Patient with hyponatremia-clinically looks rather euvolemic. Suspect underlying SIADH with urine sodium greater than 100. Hold off on fluids-gave salt tablets. Will monitor serum sodium closely. No need for 3% hypertonic saline at this point. Sodium seems to be better. Patient going for GI workup.
--- NOTE | 2024-12-26 09:36 | ESPR_ITS ---
<Statement entered by Kayleen Cade MD - 01/01/25 14:19> I reviewed above note and agree with findings and plans. I have also personally examined the patient with medicine team and went over assessment and plan with medical team including product managent intern and resident physician. Documentation for date of: 12/26/24 Senior resident attestation: Patient evaluated and examined at the bedside, plan of care discussed with rest of the team including my attending physician, except as noted. Patient is nonverbal and unable to follow commands but alert. Concern for upper GI bleed as reported by nursing staff at [facility] which noted 1 bloody bowel movement. Patient has PEG tube for feeding, was made n.p.o. and EGD showed previous endo clips in good position with no evidence of active upper gi bleeding, started on Golytely prep. Pending colonscopy by dr Crawford. Also being treated for SIADH, serum Na improved overnight to 129, on salt tabs and water restriction, nephrology following. Will discontinue frequent Na checks once sodium above 130. Quresh PGY3 Subjective Subjective Interval history: Patient was seen and examined at bedside. A.m. vitals and labs reviewed. Patient is non-verbal at base line but can track movement with eyes. Can move left arm and leg, but right arm and leg seems to be contracted. Completed EGD yesterday. Planning to do colonscopy today. Started on GoLytely prep. Patient's current serum Na is 130. Will discontinue frequent Na checks. Exam Vital Signs Temp Pulse Resp BP Pulse Ox O2 Del Method O2 Flow Rate 97.4 F 65 14 113/72 96 Room Air 3 12/26/24 07:30 12/26/24 08:00 12/26/24 07:30 12/26/24 08:00 12/26/24 07:30 12/26/24 07:30 12/25/24 19:13 Narrative Exam General: Nonverbal, cachectic HEENT: Dry mucous membranes. PERRL, EOMI. Anicteric Lungs: Clear to auscultation bilaterally Cardio: Normal S1/S2, regular rhythm, no murmurs, no JVD Abdomen: Soft, non-tender, no palpable masses, no guarding or rebound, PEG tube noted. Extremities: Symmetrical, RUE contracture, no peripheral edema , non-tender, peripheral pulses presents. Neuro: R side hemiparesis, L side able to move w/o difficulty, nonverbal and not able to follow commands. Objective Labs 12/26/24 03:33 12/26/24 10:58 Labs: Laboratory Results - last 24 hr 12/25/24 12/25/24 12/25/24 10:42 12:51 15:26 WBC RBC Hgb Hct MCV MCH MCHC RDW Std Deviation Plt Count Neut % (Auto) Lymph % (Auto) Ray % (Auto) Eos % (Auto) Baso % (Auto) Neut # (Auto) Lymph # (Auto) Ray # (Auto) Eos # (Auto) Baso # (Auto) Immature Gran # (Auto) Absolute Nucleated RBC Immature Gran % Nucleated RBC % Sodium 124 L 125 L Potassium Chloride Carbon Dioxide Anion Gap BUN Creatinine Estim Creat Clear Calc eGFR BUN/Creatinine Ratio Glucose Calculated Osmolality Calcium Corrected Calcium Phosphorus Magnesium Total Bilirubin AST ALT Alkaline Phosphatase Total Protein Albumin Globulin Albumin/Globulin Ratio Ur Collection Type Catheter Urine Color Lt-Yellow Urine Clarity Clear Urine pH 7.0 Ur Specific [place] 1.014 Urine Protein Negative Urine Glucose (UA) Negative Urine Ketones Negative Urine Blood Trace Urine Nitrite Negative Urine Bilirubin Negative Urine Urobilinogen (Auto) Negative Ur Leukocyte Esterase Negative Urine RBC 8 H Urine WBC 1 Ur Squamous Epith Cells 0 Urine Bacteria None Ur Random Sodium 119.0 H Ur Random Potassium 34 Ur Random Chloride 111.0 12/25/24 12/25/24 12/26/24 20:35 22:37 03:33 WBC 7.4 RBC 4.03 L Hgb 11.3 L Hct 32.7 L MCV 81 MCH 28.0 MCHC 34.6 RDW Std Deviation 42.5 Plt Count 437 D Neut % (Auto) 62 Lymph % (Auto) 18 Ray % (Auto) 15 H Eos % (Auto) 3 Baso % (Auto) 1 Neut # (Auto) 4.6 Lymph # (Auto) 1.4 Ray # (Auto) 1.1 H Eos # (Auto) 0.2 Baso # (Auto) 0.1 Immature Gran # (Auto) 0.04 H Absolute Nucleated RBC 0.00 Immature Gran % 1 H Nucleated RBC % 0 Sodium 125 L 126 L 128 L Potassium 4.4 Chloride 96 L Carbon Dioxide 21.5 Anion Gap 11 BUN 12 Creatinine 0.8 Estim Creat Clear Calc 68.9 eGFR > 60 BUN/Creatinine Ratio 15 Glucose 85 Calculated Osmolality 255 L Calcium 8.9 Corrected Calcium 9.1 Phosphorus 3.1 Magnesium 1.5 L Total Bilirubin 1.5 H AST 31 ALT 42 Alkaline Phosphatase 92 Total Protein 6.7 Albumin 3.7 Globulin 3.0 Albumin/Globulin Ratio 1.2 Ur Collection Type Urine Color Urine Clarity Urine pH Ur Specific [place] Urine Protein Urine Glucose (UA) Urine Ketones Urine Blood Urine Nitrite Urine Bilirubin Urine Urobilinogen (Auto) Ur Leukocyte Esterase Urine RBC Urine WBC Ur Squamous Epith Cells Urine Bacteria Ur Random Sodium Ur Random Potassium Ur Random Chloride 12/26/24 07:18 WBC RBC Hgb Hct MCV MCH MCHC RDW Std Deviation Plt Count Neut % (Auto) Lymph % (Auto) Ray % (Auto) Eos % (Auto) Baso % (Auto) Neut # (Auto) Lymph # (Auto) Ray # (Auto) Eos # (Auto) Baso # (Auto) Immature Gran # (Auto) Absolute Nucleated RBC Immature Gran % Nucleated RBC % Sodium 129 L Potassium Chloride Carbon Dioxide Anion Gap BUN Creatinine Estim Creat Clear Calc eGFR BUN/Creatinine Ratio Glucose Calculated Osmolality Calcium Corrected Calcium Phosphorus Magnesium Total Bilirubin AST ALT Alkaline Phosphatase Total Protein Albumin Globulin Albumin/Globulin Ratio Ur Collection Type Urine Color Urine Clarity Urine pH Ur Specific [place] Urine Protein Urine Glucose (UA) Urine Ketones Urine Blood Urine Nitrite Urine Bilirubin Urine Urobilinogen (Auto) Ur Leukocyte Esterase Urine RBC Urine WBC Ur Squamous Epith Cells Urine Bacteria Ur Random Sodium Ur Random Potassium Ur Random Chloride Quality Measures Quality Measures VTE prophylaxis Advance care planning discussed with:: patient Assessment & Plan Assessment Current Active Medications: Generic Name Dose Route Start Last Admin Trade Name Freq PRN Reason Stop Dose Admin Acetaminophen 650 mg 12/25/24 23:29 Acetaminophen Shae 325 Mg/10 Ml Udc GT 01/24/25 23:28 Q6HR PRN Pain 1-3 Or Fever > 100.1 Albuterol/Ipratropium 3 ml 12/25/24 15:09 Albuterol/Ipratropium (Duoneb) Rt Shae 3 Ml Nebu INH 01/24/25 15:08 Q4H PRN shortness of breath or wheezing Amiodarone HCl 200 mg 12/26/24 09:00 12/26/24 08:00 Amiodarone Hcl 200 Mg Tablet GT 01/25/25 08:59 200 mg BID AMY Administration Atorvastatin Calcium 40 mg 12/25/24 21:00 12/25/24 20:20 Atorvastatin Calcium 20 Mg Tablet GT 01/24/25 20:59 40 mg QPM AMY Administration Bisacodyl 10 mg 12/25/24 15:09 Bisacodyl 10 Mg Supp ID 01/24/25 15:08 QDAY PRN constipation Protocol Folic Acid 1 mg 12/26/24 09:00 12/26/24 08:02 Folic Acid 1 Mg Tablet GT 01/25/25 08:59 1 mg QDAY AMY Administration Magnesium Sulfate 4 gm in 50 mls @ 12.5 mls/hr 12/26/24 07:22 12/26/24 07:55 Magnesium Sulfate Ivpb IV 12/26/24 11:21 12.5 mls/hr X1 ONE Administration Home Medication- 2.5 mg 12/25/24 15:15 12/26/24 08:01 Please Speak With PO 01/24/25 15:14 Not Given Patient Caregiver To BID AMY Have Rx Brought To [facility] Ondansetron HCl 4 mg 12/24/24 03:06 Ondansetron Inj 2 Mg/Ml Inj 2 Ml IVP 01/23/25 03:05 Q6H PRN NAUSEA OR VOMITING Protocol Pantoprazole Sodium 40 mg 12/24/24 09:00 12/26/24 08:02 Pantoprazole Inj 40 Mg Vial IVP 01/23/25 08:59 40 mg BID AMY Administration Sodium Chloride 1 gm 12/25/24 14:30 12/26/24 08:01 Sodium Chloride 1 Gm Tablet GT 01/24/25 14:29 1 gm BID AMY Administration Tamsulosin HCl 0.4 mg 12/26/24 09:00 12/26/24 08:00 Tamsulosin Hcl 0.4 Mg Capsule GT 01/25/25 08:59 Not Given QDAY AMY Plan 69-year-old male with past medical history of 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 with a GI consultation for likely need for endoscopic evaluation. #GI bleed #Acute blood loss anemia #Noromocytic Anemia likely upper vs. lower 2/2 to melena Presenting from [facility] ([facility]) with bloody/dark bowel movements noted by staff Hx of Denise-Galvez tear in the past; endoscopy done on 12/06 and 12/08 with endoclip placement Hgb of 10.7 w/ MCV of 82 likely 2/2 to acute blood loss but cannot r/o CYNTHIA, AOCD, vitamin deficiency; less likely to be myelosuppression, hemolytic anemia CTAP(12/24/2024): No abnormal contrast extravasation in the gastrointestinal tract, consider follow-up nuclear medicine gastrointestinal bleeding study as clinically warranted, also consider CTA abdomen and pelvis follow-up as clinically warranted Moderate bilateral renal scarring, Normal appendix, No bowel obstruction, Colonic diverticulosis, no diverticulitis, Subcentimeter bladder calculi., Atelectasis versus pneumonia right base with small right pleural effusion -Started GoLytely prep for possible colonoscopy today. Plan: -GI consulted, appreciate recommendations -NPO -IV Protonix 40 BID -Monitor Hgb closely; transfuse if <7 -Follow-up on Iron panel, ferritin and reticulocyte count -EGD(12/25/2024): Gastritis, characterized by erythema, Normal second portion of the duodenum, Denise-galvez tear has completely healed with endoclips in place1 clip has fallen off 2 clips remaining and looks really nice there is no ulceration and no evidence of any recent bleed. -Colonoscopy pending #Hypoosmolar Moderate Hyponatremia, Isovolemic, likely secondary to SIADH Moderate hyponatremia given sodium of 124, with low osmolarity of 253 appearing isovolemic. Urine electrolytes obtained, noted to have Na of 119, thus [place]>20. Likely secondary to SIADH vs renal failure vs hypothyrodism which less likely as previous TSH showed subclincal hyperthyroidism with TSH 0.25 and Free T4 1.31. Currently: Serum Na: 130, Calculated osmolality: 255 Plan: -Sodium 1 gram BID -Fluid restriction ordered -Nephrology consulted, appreciate recommendations. -Stop sodium checks, Patient's serum Na 130 #Thrombocytosis Likely 2/2 to active bleeding leisure, inflammatory response vs KAREN 2 mutation vs malignancy, less likely Plan: -Monitor with morning labs #Hx of CVA with residual right-sided hemiparesis #Hx of hypertension #Hx of hyperlipidemia #Hx of dementia (nonverbal) Chronic medical conditions not pertinent to the following presentation Health Maintenance: Lines: PIV, PEG tube Diet: N.p.o. Bowel: Not needed GI prophylaxis: On IV Protonix 40 twice daily DVT prophylaxis: SCD Dispo: Pending GI consultation for upper GI bleed Code: DNR Assessment and plan discussed with my attending physician Dr. Cade and Dr. Hernandez (PGY-3) Dr. Mcduffie (PGY-1)- Internal medicine resident
[2024-12-26 11:34] LABS: Sodium 130 mMol/L (136-145)
--- NOTE | 2024-12-26 11:35 | PC.SS ---
Pt is resident from [facility]. Pt was admitted for GI Bleed. SS spoke to Esther from [facility] who states patient's dtr, Leida Sosa is his medical decision maker. Esther confirmed patient's demographic and contact information is correct on facesheet. Pt is maximum assist and transfers into Kelly chair with bethany lift. Pt requires assistance with all ADLs. Patient will return to [facility] upon dc. Pt will require transportation upon dc. D/C plan: Return to [facility] Next of Kin: Leida Sosa, daughter, phone# [phone] PCP: Dr. Cooney Address: Correct on facesheet
[2024-12-26] MEDS: ATORVASTATIN CALCIUM 20 MG TABLET 40 MG GT (20:02)
--- NOTE | 2024-12-26 20:41 | PD.IMPROG ---
Documentation for date of: 12/26/24 Subjective Subjective Interval history: Patient evaluated He was scheduled for a colonoscopy but he is not clear Additional GoLytely to continue Exam Vital Signs Temp Pulse Resp BP Pulse Ox O2 Del Method O2 Flow Rate 97.3 F 73 18 117/74 96 Room Air 3 12/26/24 20:00 12/26/24 20:02 12/26/24 20:00 12/26/24 20:02 12/26/24 20:00 12/26/24 20:00 12/25/24 19:13 Objective Labs 12/26/24 03:33 12/26/24 10:58 Labs: Laboratory Results - last 24 hr 12/25/24 12/25/24 12/26/24 20:35 22:37 03:33 WBC 7.4 RBC 4.03 L Hgb 11.3 L Hct 32.7 L MCV 81 MCH 28.0 MCHC 34.6 RDW Std Deviation 42.5 Plt Count 437 D Neut % (Auto) 62 Lymph % (Auto) 18 [place] % (Auto) 15 H Eos % (Auto) 3 Baso % (Auto) 1 Neut # (Auto) 4.6 Lymph # (Auto) 1.4 [place] # (Auto) 1.1 H Eos # (Auto) 0.2 Baso # (Auto) 0.1 Immature Gran # (Auto) 0.04 H Absolute Nucleated RBC 0.00 Immature Gran % 1 H Nucleated RBC % 0 Sodium 125 L 126 L 128 L Potassium 4.4 Chloride 96 L Carbon Dioxide 21.5 Anion Gap 11 BUN 12 Creatinine 0.8 Estim Creat Clear Calc 68.9 eGFR > 60 BUN/Creatinine Ratio 15 Glucose 85 Calculated Osmolality 255 L Calcium 8.9 Corrected Calcium 9.1 Phosphorus 3.1 Magnesium 1.5 L Total Bilirubin 1.5 H AST 31 ALT 42 Alkaline Phosphatase 92 Total Protein 6.7 Albumin 3.7 Globulin 3.0 Albumin/Globulin Ratio 1.2 12/26/24 12/26/24 07:18 10:58 WBC RBC Hgb Hct MCV MCH MCHC RDW Std Deviation Plt Count Neut % (Auto) Lymph % (Auto) [place] % (Auto) Eos % (Auto) Baso % (Auto) Neut # (Auto) Lymph # (Auto) [place] # (Auto) Eos # (Auto) Baso # (Auto) Immature Gran # (Auto) Absolute Nucleated RBC Immature Gran % Nucleated RBC % Sodium 129 L 130 L Potassium Chloride Carbon Dioxide Anion Gap BUN Creatinine Estim Creat Clear Calc eGFR BUN/Creatinine Ratio Glucose Calculated Osmolality Calcium Corrected Calcium Phosphorus Magnesium Total Bilirubin AST ALT Alkaline Phosphatase Total Protein Albumin Globulin Albumin/Globulin Ratio Impressions Impression: Posthemorrhagic anemia Additional GoLytely Colonoscopy a.m. Assessment & Plan A&P Narrative # Acute GI bleed with melena Plan Continue IV Protonix Serial CBC Correction of the hyponatremia Consent obtained for fiberoptic esophagogastroduodenoscopy with possible therapeutic intervention possible biopsy under intravenous moderate sedation scheduled for tomorrow Patient can have a clear liquid diet up until 10:00 tomorrow morning Other medical problems include Hyponatremia CVA with residual right-sided motor weakness Hypothyroidism Dementia BPH Thank you once again for the opportunity to participate in the care of this patient Time Spent With Patient Time: Total time spent is greater than 50% in coordination of care (as documented) at patient's floor/unit and/or counseling patient:
[2024-12-27] VITALS (15 sets, daily range): BP systolic 82–132; BP diastolic 55–82; PULSE 53–77; RESP 10–18; TEMP 36.1–36.8; O2SAT 92–98
[2024-12-27 06:34] LABS: Basophils # (Auto) 0.1 Thou/mm3 (0.0-0.2); Basophils % (Auto) 1 % (0-2.5); Eosinophils # (Auto) 0.2 Thou/mm3 (0.0-0.5); Eosinophils % (Auto) 4 % (0-10); Hematocrit 28.4 % (41.0-53.0); Hemoglobin 10.2 g/dL (13.5-16.0); Immature Granulocytes Auto 0.03 Thou/mm3 (0.00-0.00); Lymphocytes # (Auto) 1.4 Thou/mm3 (1.0-4.8); Lymphocytes % (Auto) 21 % (10-50); Mean Corpuscular HGB Conc 35.9 g/dl (31.0-37.0); Mean Corpuscular Hemoglobin 28.4 pg (25.0-35.0); Mean Corpuscular Volume 79 fL (80-100); Monocytes # (Auto) 0.9 Thou/mm3 (0.0-0.8); Monocytes % (Auto) 14 % (0-12); Neutrophils # (Auto) 3.9 Thou/mm3 (1.8-7.7); Neutrophils % (Auto) 60 % (37-80); Nucleated Red Blood Cell # 0.00 Thou/mm3 (0.00-0.00); Nucleated Red Blood Cell % 0 /100 WBC (0); Platelet Count 440 Thou/mm3 (140-440); RDW Standard Deviation 42.1 fL (35.1-43.9); Red Blood Count 3.59 Miln/mm3 (4.50-5.90); White Blood Count 6.4 Thou/mm3 (3.8-10.6)
[2024-12-27 07:00] LABS: Alanine Aminotransferase 33 U/L (10-49); Albumin, Serum 3.4 gm/dL (3.4-4.8); Albumin/Globulin Ratio 1.3 (1.2-2.2); Alkaline Phosphatase 88 U/L (46-116); Anion Gap 10 (7-16); Aspartate Amino Transferase 24 U/L (0-34); BUN/Creatinine Ratio 13 Ratio (12-20); Bilirubin,Total 1.1 mg/dL (0.3-1.2); Blood Urea Nitrogen 10 mg/dL (9-23); Calcium 8.3 mg/dL (8.3-10.6); Calcium (Corrected) 8.8 mg/dL (8.5-10.1); Carbon Dioxide 21.8 mMol/L (20.0-31.0); Chloride 100 mMol/L (98-107); Creatinine (Component) 0.8 mg/dL (0.6-1.3); Estimated Creatinine Clearance 70.2 mL/min (>60); Globulin 2.7 gm/dL (2.3-3.5); Glucose 72 mg/dL (74-106); Magnesium 1.6 mg/dL (1.6-2.6); Osmolality,Calculated 262 (275-295); Phosphorous 2.9 mg/dL (2.4-5.1); Potassium 3.8 mMol/L (3.4-5.1); Sodium 132 mMol/L (136-145); Total Protein 6.1 gm/dL (5.7-8.2); eGFR > 60 See Note
[2024-12-27] MEDS: FOLIC ACID 1 MG TABLET GT (08:36)
[2024-12-27] MEDS: MAGNESIUM OXIDE 400 MG TABLET PO (08:36)
[2024-12-27] MEDS: AMIODARONE HCL 200 MG TABLET GT ×2 (08:36→21:27)
[2024-12-27] MEDS: SODIUM CHLORIDE 1 GM TABLET GT ×2 (08:36→21:27)
--- NOTE | 2024-12-27 09:53 | PC.SS ---
Follow up note: Colonoscopy pending. Pt will return to [facility] upon dc.
--- NOTE | 2024-12-27 10:18 | PD.RESPRO ---
Documentation for date of: 12/27/24 Subjective Subjective Interval history: Mr. 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 Given patient not being verbal most of the history was taken from chart review at this time. Patient was found to have today of episode of bloody stools prior to coming to the ED. Patient's vital signs have been stable since admission. Hemoglobin has been stable in the 10's despite GI bleed. CT AP (12/25) concerning for atelectasis versus pneumonia right base with small right pleural effusion. Recent admission on 12/06/2024 from [facility] for management of pyelonephritis and upper GI bleed. 12/25/2024 Patient was seen and examined. No acute events overnight noted. Patient noted to be at his baseline (per chart review) awake, non-verbal. Not in any acute distress. Review of systems not able to be fully assessed due to patient being non-verbal.Nephrology consultation requested for hyponatremia. Sodium dropped to 124. 12/26/2024 Patient had upper gi endoscopy yesterday. No acute events overnight. Vital signs are stable. Patient's alertness and orientation appears unchanged. Review of systems not able to be fully assessed due to patient being non-verbal and non-resonsive to commands. Patients Sodium improved to 129 after fluid restriction and NaCl tablets. 12/27/2024 Patient did not have any acute events overnight. Vitals and labs have been reviewed. Patient's sodium continues to slowly improve, now at 132 with NaCl tablets bid. Patient is alert but is not oriented and continues to not respond to commands. Exam Vital Signs Temp Pulse Resp BP Pulse Ox O2 Del Method O2 Flow Rate 97.8 F 61 15 96/62 93 L Room Air 3 12/27/24 08:00 12/27/24 08:36 12/27/24 08:00 12/27/24 08:36 12/27/24 08:00 12/27/24 08:00 12/25/24 19:13 Narrative Exam GENERAL APPEARANCE: skinny appearing man, no acute distress. HEENT: ?NC, AT. MMM. EOMI, clear conjunctiva. NECK: ?Supple without lymphadenopathy.? HEART:? Normal rate and regular rhythm, no m/r/g LUNGS:? bilateral crackles ABDOMEN: ?Soft, nontender, nondistended with good bowel sounds heard. Peg tube present BACK: No CVAT, no obvious deformity. EXTREMITIES: ?Without cyanosis, clubbing or edema. NEUROLOGICAL: ?Patient not verbal or responsive to commands Skin: ?Warm and dry without any rash. Objective Labs 12/27/24 06:02 12/27/24 06:02 Labs: Laboratory Results - last 24 hr 12/26/24 12/27/24 10:58 06:02 WBC 6.4 RBC 3.59 L Hgb 10.2 L Hct 28.4 L MCV 79 L MCH 28.4 MCHC 35.9 RDW Std Deviation 42.1 Plt Count 440 Neut % (Auto) 60 Lymph % (Auto) 21 [place] % (Auto) 14 H Eos % (Auto) 4 Baso % (Auto) 1 Neut # (Auto) 3.9 Lymph # (Auto) 1.4 [place] # (Auto) 0.9 H Eos # (Auto) 0.2 Baso # (Auto) 0.1 Immature Gran # (Auto) 0.03 H Absolute Nucleated RBC 0.00 Immature Gran % 1 H Nucleated RBC % 0 Sodium 130 L 132 L Potassium 3.8 D Chloride 100 Carbon Dioxide 21.8 Anion Gap 10 BUN 10 Creatinine 0.8 Estim Creat Clear Calc 70.2 eGFR > 60 BUN/Creatinine Ratio 13 Glucose 72 L Calculated Osmolality 262 L Calcium 8.3 Corrected Calcium 8.8 Phosphorus 2.9 Magnesium 1.6 Total Bilirubin 1.1 AST 24 ALT 33 Alkaline Phosphatase 88 Total Protein 6.1 Albumin 3.4 Globulin 2.7 Albumin/Globulin Ratio 1.3 Quality Measures Quality Measures VTE prophylaxis Advance care planning discussed with:: other Assessment & Plan Assessment Current Active Medications: Generic Name Dose Route Start Last Admin Trade Name Freq PRN Reason Stop Dose Admin Acetaminophen 650 mg 12/25/24 23:29 Acetaminophen Shae 325 Mg/10 Ml Udc GT 01/24/25 23:28 Q6HR PRN Pain 1-3 Or Fever > 100.1 Albuterol/Ipratropium 3 ml 12/25/24 15:09 Albuterol/Ipratropium (Duoneb) Rt Shae 3 Ml Nebu INH 01/24/25 15:08 Q4H PRN shortness of breath or wheezing Amiodarone HCl 200 mg 12/26/24 09:00 12/27/24 08:36 Amiodarone Hcl 200 Mg Tablet GT 01/25/25 08:59 200 mg BID AMY Administration Atorvastatin Calcium 40 mg 12/25/24 21:00 12/26/24 20:02 Atorvastatin Calcium 20 Mg Tablet GT 01/24/25 20:59 40 mg QPM AMY Administration Bisacodyl 10 mg 12/25/24 15:09 Bisacodyl 10 Mg Supp [place] 01/24/25 15:08 QDAY PRN constipation Protocol Folic Acid 1 mg 12/26/24 09:00 12/27/24 08:36 Folic Acid 1 Mg Tablet GT 01/25/25 08:59 1 mg QDAY AMY Administration Home Medication- 2.5 mg 12/25/24 15:15 12/27/24 08:24 Please Speak With PO 01/24/25 15:14 Not Given Patient Caregiver To BID AMY Have Rx Brought To [facility] Ondansetron HCl 4 mg 12/24/24 03:06 Ondansetron Inj 2 Mg/Ml Inj 2 Ml IVP 01/23/25 03:05 Q6H PRN NAUSEA OR VOMITING Protocol Pantoprazole Sodium 40 mg 12/24/24 09:00 12/27/24 08:43 Pantoprazole Inj 40 Mg Vial IVP 01/23/25 08:59 40 mg BID AMY Administration Sodium Chloride 1 gm 12/25/24 14:30 12/27/24 08:36 Sodium Chloride 1 Gm Tablet GT 01/24/25 14:29 1 gm BID AMY Administration Tamsulosin HCl 0.4 mg 12/26/24 09:00 12/27/24 08:25 Tamsulosin Hcl 0.4 Mg Capsule GT 01/25/25 08:59 Not Given QDAY AMY Plan 69-year-old male with past medical history of 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 with a GI consultation for likely need for endoscopic evaluation. Nephrology consulted for hypoosmolar hyponatremia management. #hypo-osmolar hyponatremia Likely due to SIADH. Patient has a baseline of being alert but non-verbal, not responsive to commands. Given this, patient does not appear to have had a change in mental status. Patient does not appear fluid overloaded. Patient's hypoosmolar hyponatremia persisted despite being given NS and dextrose fluids. Serum Sodium has been in the mid 120s with serum osmols low at 253. Plan -Continue 1 gm NaCl tabs BID -Plan for NaCl tabs once discharged -Continue fluid restriction -ctm sodium correction #GI bleed #Acute blood loss anemia # Thrombophilia #Hx of CVA with residual right-sided hemiparesis #Hx of hypertension #Hx of hyperlipidemia #Hx of dementia (nonverbal) management for remainder of problems through the primary team. Thank you for allowing us to be apart of the care team for Mr. Doan Plan of care discussed with attending, Dr. Francisco Randall MD PGY-1 Attending Provider Attestation/Addendum Patient seen and examined with resident physician Dr. Randall. Note reviewed, agree with findings and recommendations with changes made. Patient with hyponatremia-clinically looks rather euvolemic. Suspect underlying SIADH with urine sodium greater than 100. Hold off on fluids-gave salt tablets. Will monitor serum sodium closely. Sodium seems to be better. Patient going for GI workup.
--- NOTE | 2024-12-27 11:47 | ESPR_ITS ---
<Statement entered by Kayleen Cade MD - 01/01/25 14:20> I reviewed above note and agree with findings and plans. I have also personally examined the patient with medicine team and went over assessment and plan with medical team including grad intern and resident physician. Documentation for date of: 12/27/24 Senior resident attestation: Patient evaluated and examined at the bedside, plan of care discussed with rest of the team including my attending physician, except as noted. Patient is nonverbal and unable to follow commands but alert. Concern for upper GI bleed as reported by nursing staff at [facility] which noted 1 bloody bowel movement. Patient has PEG tube for feeding, was made n.p.o. and EGD showed previous endo clips in good position with no evidence of active upper gi bleeding, started on Golytely prep. Pending colonscopy by dr Crawford. Patient was still not clear yesterday, anticipate colonoscopy in the afternoon today. Serum sodium improved, sodium 132, will hold off on repeated sodium checks. Nephrology following, continue salt tabs and fluid restriction. Anticipate discharge tomorrow after colonoscopy. Quresh PGY3 Subjective Subjective Interval history: Patient was seen and examined at bedside. A.m. vitals and labs reviewed. Patient is non-verbal at base line but can track movement with eyes. Can move left arm and leg, but right arm and leg seems to be contracted. Today, serum sodium increased to 132. Hold off on repeaed sodium check. Per nephrology recommendations, will continue salt tabs and fluid restructions. Colonoscopy (12/27/2024) showed hemorrhoids on perianal exam, Moderate diverticulosis in the sigmoid colon and in the descending colon. There was no evidence of diverticular bleeding. Recommendation: Resume PEG feeding. Exam Vital Signs Temp Pulse Resp BP Pulse Ox O2 Del Method O2 Flow Rate 97.8 F 61 15 96/62 93 L Room Air 3 12/27/24 08:00 12/27/24 08:36 12/27/24 08:00 12/27/24 08:36 12/27/24 08:00 12/27/24 08:00 12/25/24 19:13 Narrative Exam General: Nonverbal, cachectic HEENT: Dry mucous membranes. PERRL, EOMI. Anicteric Lungs: Clear to auscultation bilaterally Cardio: Normal S1/S2, regular rhythm, no murmurs, no JVD Abdomen: Soft, non-tender, no palpable masses, no guarding or rebound, PEG tube noted. Extremities: Symmetrical, RUE contracture, no peripheral edema , non-tender, peripheral pulses presents. Neuro: R side hemiparesis, L side able to move w/o difficulty, nonverbal and not able to follow commands. Objective Labs 12/27/24 06:02 12/27/24 06:02 Labs: Laboratory Results - last 24 hr 12/27/24 06:02 WBC 6.4 RBC 3.59 L Hgb 10.2 L Hct 28.4 L MCV 79 L MCH 28.4 MCHC 35.9 RDW Std Deviation 42.1 Plt Count 440 Neut % (Auto) 60 Lymph % (Auto) 21 [place] % (Auto) 14 H Eos % (Auto) 4 Baso % (Auto) 1 Neut # (Auto) 3.9 Lymph # (Auto) 1.4 [place] # (Auto) 0.9 H Eos # (Auto) 0.2 Baso # (Auto) 0.1 Immature Gran # (Auto) 0.03 H Absolute Nucleated RBC 0.00 Immature Gran % 1 H Nucleated RBC % 0 Sodium 132 L Potassium 3.8 D Chloride 100 Carbon Dioxide 21.8 Anion Gap 10 BUN 10 Creatinine 0.8 Estim Creat Clear Calc 70.2 eGFR > 60 BUN/Creatinine Ratio 13 Glucose 72 L Calculated Osmolality 262 L Calcium 8.3 Corrected Calcium 8.8 Phosphorus 2.9 Magnesium 1.6 Total Bilirubin 1.1 AST 24 ALT 33 Alkaline Phosphatase 88 Total Protein 6.1 Albumin 3.4 Globulin 2.7 Albumin/Globulin Ratio 1.3 Quality Measures Quality Measures VTE prophylaxis Advance care planning discussed with:: patient Assessment & Plan Assessment Current Active Medications: Generic Name Dose Route Start Last Admin Trade Name Freq PRN Reason Stop Dose Admin Acetaminophen 650 mg 12/25/24 23:29 Acetaminophen Shae 325 Mg/10 Ml Udc GT 01/24/25 23:28 Q6HR PRN Pain 1-3 Or Fever > 100.1 Albuterol/Ipratropium 3 ml 12/25/24 15:09 Albuterol/Ipratropium (Duoneb) Rt Shae 3 Ml Nebu INH 01/24/25 15:08 Q4H PRN shortness of breath or wheezing Amiodarone HCl 200 mg 12/26/24 09:00 12/27/24 08:36 Amiodarone Hcl 200 Mg Tablet GT 01/25/25 08:59 200 mg BID AMY Administration Atorvastatin Calcium 40 mg 12/25/24 21:00 12/26/24 20:02 Atorvastatin Calcium 20 Mg Tablet GT 01/24/25 20:59 40 mg QPM AMY Administration Bisacodyl 10 mg 12/25/24 15:09 Bisacodyl 10 Mg Supp CO 01/24/25 15:08 QDAY PRN constipation Protocol Folic Acid 1 mg 12/26/24 09:00 12/27/24 08:36 Folic Acid 1 Mg Tablet GT 01/25/25 08:59 1 mg QDAY AMY Administration Home Medication- 2.5 mg 12/25/24 15:15 12/27/24 08:24 Please Speak With PO 01/24/25 15:14 Not Given Patient Caregiver To BID AMY Have Rx Brought To [facility] Ondansetron HCl 4 mg 12/24/24 03:06 Ondansetron Inj 2 Mg/Ml Inj 2 Ml IVP 01/23/25 03:05 Q6H PRN NAUSEA OR VOMITING Protocol Pantoprazole Sodium 40 mg 12/24/24 09:00 12/27/24 08:43 Pantoprazole Inj 40 Mg Vial IVP 01/23/25 08:59 40 mg BID AMY Administration Sodium Chloride 1 gm 12/25/24 14:30 12/27/24 08:36 Sodium Chloride 1 Gm Tablet GT 01/24/25 14:29 1 gm BID AMY Administration Tamsulosin HCl 0.4 mg 12/26/24 09:00 12/27/24 08:25 Tamsulosin Hcl 0.4 Mg Capsule GT 01/25/25 08:59 Not Given QDAY AMY Plan 69-year-old male with past medical history of 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 with a GI consultation for likely need for endoscopic evaluation. #GI bleed #Acute blood loss anemia #Noromocytic Anemia likely upper vs. lower 2/2 to melena Presenting from [facility] ([facility]) with bloody/dark bowel movements noted by staff Hx of Denise-Galvez tear in the past; endoscopy done on 12/06 and 12/08 with endoclip placement Hgb of 10.7 w/ MCV of 82 likely 2/2 to acute blood loss but cannot r/o CYNTHIA, AOCD, vitamin deficiency; less likely to be myelosuppression, hemolytic anemia CTAP(12/24/2024): No abnormal contrast extravasation in the gastrointestinal tract, consider follow-up nuclear medicine gastrointestinal bleeding study as clinically warranted, also consider CTA abdomen and pelvis follow-up as clinically warranted Moderate bilateral renal scarring, Normal appendix, No bowel obstruction, Colonic diverticulosis, no diverticulitis, Subcentimeter bladder calculi., Atelectasis versus pneumonia right base with small right pleural effusion. Plan: -GI consulted, appreciate recommendations -NPO -IV Protonix 40 BID -Monitor Hgb closely; transfuse if <7 -Follow-up on Iron panel, ferritin and reticulocyte count -EGD(12/25/2024): Gastritis, characterized by erythema, Normal second portion of the duodenum, Denise-galvez tear has completely healed with endoclips in place1 clip has fallen off 2 clips remaining and looks really nice there is no ulceration and no evidence of any recent bleed. -Colonoscopy (12/27/2024): Hemorrhoids on perianal exam, Moderate diverticulosis in the sigmoid colon and in the descending colon. There was no evidence of diverticular bleeding. Recommendation: Resume PEG feeding #Hypoosmolar Moderate Hyponatremia, Isovolemic, likely secondary to SIADH Moderate hyponatremia given sodium of 124, with low osmolarity of 253 appearing isovolemic. Urine electrolytes obtained, noted to have Na of 119, thus [place]>20. Likely secondary to SIADH vs renal failure vs hypothyrodism which less likely as previous TSH showed subclincal hyperthyroidism with TSH 0.25 and Free T4 1.31. Currently: Serum Na: 132 Plan: -Sodium 1 gram BID -Fluid restriction ordered -Nephrology consulted, appreciate recommendations. -Stop sodium checks, Patient's serum Na 132 #Thrombocytosis Likely 2/2 to active bleeding leisure, inflammatory response vs KAREN 2 mutation vs malignancy, less likely Plan: -Monitor with morning labs #Hx of CVA with residual right-sided hemiparesis #Hx of hypertension #Hx of hyperlipidemia #Hx of dementia (nonverbal) Chronic medical conditions not pertinent to the following presentation Health Maintenance: Lines: PIV, PEG tube Diet: N.p.o. Bowel: Not needed GI prophylaxis: On IV Protonix 40 twice daily DVT prophylaxis: SCD Dispo: Pending GI consultation for upper GI bleed Code: DNR Assessment and plan discussed with my attending physician Dr. Cade and Dr. Hernandez (PGY-3) Dr. Mcduffie (PGY-1)- Internal medicine resident
--- NOTE | 2024-12-27 11:52 | XR_ITS ---
Examination: AP chest single view Technique one AP portable upright chest single view Date and time: December 27, 2024 12:10 PM INDICATIONS: O2 desaturation hypoxia today. FINDINGS: Normal heart size Accentuation bronchovascular markings. No lobar pneumonia or pulmonary edema. Prominent osteopenia. Trachea is deviated to the right, consider thyroid sonography follow-up IMPRESSION: Bronchitis pattern Consider thyroid sonography follow-up to exclude left thyromegaly
[2024-12-27] MEDS: SODIUM CHLORIDE 0.9% 500 ML 500 ML 125 ML IV (18:45)
--- NOTE | 2024-12-27 19:29 | SUR.PHASEI ---
pt received to [facility] via [facility]. report from nurse lyndon and doctor timmy. . vss. breathing even and unlabored. no ss of pain or nausea.
--- NOTE | 2024-12-27 20:05 | SUR.PHASEI ---
report called to [facility] on [facility]. vss. breathing even and unlabored. no ss of pain or nausea. transported to room via gurney
[2024-12-27] MEDS: ATORVASTATIN CALCIUM 20 MG TABLET 40 MG GT (21:27)
[2024-12-28] VITALS (10 sets, daily range): BP systolic 105–137; BP diastolic 59–92; PULSE 60–80; RESP 16–18; TEMP 36.1–36.9; O2SAT 92–97; BMI 18.4
[2024-12-28 06:05] LABS: Basophils # (Auto) 0.0 Thou/mm3 (0.0-0.2); Basophils % (Auto) 1 % (0-2.5); Eosinophils # (Auto) 0.2 Thou/mm3 (0.0-0.5); Eosinophils % (Auto) 4 % (0-10); Hematocrit 30.7 % (41.0-53.0); Hemoglobin 10.3 g/dL (13.5-16.0); Immature Granulocytes Auto 0.02 Thou/mm3 (0.00-0.00); Lymphocytes # (Auto) 1.1 Thou/mm3 (1.0-4.8); Lymphocytes % (Auto) 17 % (10-50); Mean Corpuscular HGB Conc 33.6 g/dl (31.0-37.0); Mean Corpuscular Hemoglobin 27.7 pg (25.0-35.0); Mean Corpuscular Volume 83 fL (80-100); Monocytes # (Auto) 0.7 Thou/mm3 (0.0-0.8); Monocytes % (Auto) 11 % (0-12); Neutrophils # (Auto) 4.4 Thou/mm3 (1.8-7.7); Neutrophils % (Auto) 68 % (37-80); Nucleated Red Blood Cell # 0.00 Thou/mm3 (0.00-0.00); Nucleated Red Blood Cell % 0 /100 WBC (0); Platelet Count 472 Thou/mm3 (140-440); RDW Standard Deviation 43.7 fL (35.1-43.9); Red Blood Count 3.72 Miln/mm3 (4.50-5.90); White Blood Count 6.4 Thou/mm3 (3.8-10.6)
[2024-12-28 06:37] LABS: Alanine Aminotransferase 30 U/L (10-49); Albumin, Serum 3.4 gm/dL (3.4-4.8); Albumin/Globulin Ratio 1.2 (1.2-2.2); Alkaline Phosphatase 88 U/L (46-116); Anion Gap 12 (7-16); Aspartate Amino Transferase 23 U/L (0-34); BUN/Creatinine Ratio 12 Ratio (12-20); Bilirubin,Total 0.9 mg/dL (0.3-1.2); Blood Urea Nitrogen 11 mg/dL (9-23); Calcium 8.5 mg/dL (8.3-10.6); Calcium (Corrected) 9.0 mg/dL (8.5-10.1); Carbon Dioxide 21.5 mMol/L (20.0-31.0); Chloride 100 mMol/L (98-107); Creatinine (Component) 0.9 mg/dL (0.6-1.3); Estimated Creatinine Clearance 62.7 mL/min (>60); Globulin 2.8 gm/dL (2.3-3.5); Glucose 138 mg/dL (74-106); Magnesium 1.4 mg/dL (1.6-2.6); Osmolality,Calculated 267 (275-295); Phosphorous 3.3 mg/dL (2.4-5.1); Potassium 3.6 mMol/L (3.4-5.1); Sodium 133 mMol/L (136-145); Total Protein 6.2 gm/dL (5.7-8.2); eGFR > 60 See Note
--- NOTE | 2024-12-28 08:51 | PC.SS ---
SS follow up: contacted Esther at [facility] as patient is a potential d/c for today to identify if patient is eligible to return to facility when d/c orders are placed. Esther informed she would call back.
--- NOTE | 2024-12-28 09:21 | ESPR_ITS ---
Documentation for date of: 12/28/24 Subjective Subjective Interval history: Mr. 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 Given patient not being verbal most of the history was taken from chart review at this time. Patient was found to have today of episode of bloody stools prior to coming to the ED. Patient's vital signs have been stable since admission. Hemoglobin has been stable in the 10's despite GI bleed. CT AP (12/25) concerning for atelectasis versus pneumonia right base with small right pleural effusion. Recent admission on 12/06/2024 from [facility] for management of pyelonephritis and upper GI bleed. 12/25/2024 Patient was seen and examined. No acute events overnight noted. Patient noted to be at his baseline (per chart review) awake, non-verbal. Not in any acute distress. Review of systems not able to be fully assessed due to patient being non-verbal.Nephrology consultation requested for hyponatremia. Sodium dropped to 124. 12/26/2024 Patient had upper gi endoscopy yesterday. No acute events overnight. Vital signs are stable. Patient's alertness and orientation appears unchanged. Review of systems not able to be fully assessed due to patient being non-verbal and non-resonsive to commands. Patients Sodium improved to 129 after fluid restriction and NaCl tablets. 12/27/2024 Patient did not have any acute events overnight. Vitals and labs have been reviewed. Patient's sodium continues to slowly improve, now at 132 with NaCl tablets bid. Patient is alert but is not oriented and continues to not respond to commands. 12/28/2024 Patient came back stable after having his colonoscopy yesterday. Patient did not have any acute events overnight. Vitals and labs have been reviewed. Patient's sodium continues to slowly improve, now at 133 with NaCl tablets bid. Patient is alert but is not oriented and continues to not respond to commands. Exam Vital Signs Temp Pulse Resp BP Pulse Ox O2 Del Method O2 Flow Rate 98.4 F 65 16 105/64 96 Room Air 2 12/28/24 07:45 12/28/24 07:45 12/28/24 07:45 12/28/24 07:45 12/28/24 07:45 12/28/24 04:00 12/27/24 19:59 Narrative Exam GENERAL APPEARANCE: skinny appearing man, no acute distress. HEENT: ?NC, AT. MMM. EOMI, clear conjunctiva. NECK: ?Supple without lymphadenopathy.? HEART:? Normal rate and regular rhythm, no m/r/g LUNGS:? bilateral crackles ABDOMEN: ?Soft, nontender, nondistended with good bowel sounds heard. Peg tube present BACK: No CVAT, no obvious deformity. EXTREMITIES: ?Without cyanosis, clubbing or edema. NEUROLOGICAL: ?Patient not verbal or responsive to commands Skin: ?Warm and dry without any rash. Objective Labs 12/28/24 04:24 12/28/24 04:24 Labs: Laboratory Results - last 24 hr 12/28/24 04:24 WBC 6.4 RBC 3.72 L Hgb 10.3 L Hct 30.7 L MCV 83 MCH 27.7 MCHC 33.6 RDW Std Deviation 43.7 Plt Count 472 H D Neut % (Auto) 68 Lymph % (Auto) 17 [place] % (Auto) 11 Eos % (Auto) 4 Baso % (Auto) 1 Neut # (Auto) 4.4 Lymph # (Auto) 1.1 [place] # (Auto) 0.7 Eos # (Auto) 0.2 Baso # (Auto) 0.0 Immature Gran # (Auto) 0.02 H Absolute Nucleated RBC 0.00 Immature Gran % 0 Nucleated RBC % 0 Sodium 133 L Potassium 3.6 Chloride 100 Carbon Dioxide 21.5 Anion Gap 12 BUN 11 Creatinine 0.9 Estim Creat Clear Calc 62.7 eGFR > 60 BUN/Creatinine Ratio 12 Glucose 138 H D Calculated Osmolality 267 L Calcium 8.5 Corrected Calcium 9.0 Phosphorus 3.3 Magnesium 1.4 L Total Bilirubin 0.9 AST 23 ALT 30 Alkaline Phosphatase 88 Total Protein 6.2 Albumin 3.4 Globulin 2.8 Albumin/Globulin Ratio 1.2 Quality Measures Quality Measures VTE prophylaxis Advance care planning discussed with:: other Assessment & Plan Assessment Current Active Medications: Generic Name Dose Route Start Last Admin Trade Name Freq PRN Reason Stop Dose Admin Acetaminophen 650 mg 12/25/24 23:29 Acetaminophen Shae 325 Mg/10 Ml Udc GT 01/24/25 23:28 Q6HR PRN Pain 1-3 Or Fever > 100.1 Albuterol/Ipratropium 3 ml 12/25/24 15:09 Albuterol/Ipratropium (Duoneb) Rt Shae 3 Ml Nebu INH 01/24/25 15:08 Q4H PRN shortness of breath or wheezing Amiodarone HCl 200 mg 12/26/24 09:00 12/27/24 21:27 Amiodarone Hcl 200 Mg Tablet GT 01/25/25 08:59 200 mg BID AMY Administration Atorvastatin Calcium 40 mg 12/25/24 21:00 12/27/24 21:27 Atorvastatin Calcium 20 Mg Tablet GT 01/24/25 20:59 40 mg QPM AMY Administration Bisacodyl 10 mg 12/25/24 15:09 Bisacodyl 10 Mg Supp MT 01/24/25 15:08 QDAY PRN constipation Protocol Folic Acid 1 mg 12/26/24 09:00 12/27/24 08:36 Folic Acid 1 Mg Tablet GT 01/25/25 08:59 1 mg QDAY AMY Administration Home Medication- 2.5 mg 12/25/24 15:15 12/27/24 21:27 Please Speak With PO 01/24/25 15:14 Not Given Patient Caregiver To BID AMY Have Rx Brought To [facility] Ondansetron HCl 4 mg 12/24/24 03:06 Ondansetron Inj 2 Mg/Ml Inj 2 Ml IVP 01/23/25 03:05 Q6H PRN NAUSEA OR VOMITING Protocol Pantoprazole Sodium 40 mg 12/24/24 09:00 12/27/24 21:26 Pantoprazole Inj 40 Mg Vial IVP 01/23/25 08:59 40 mg BID AMY Administration Sodium Chloride 1 gm 12/25/24 14:30 12/27/24 21:27 Sodium Chloride 1 Gm Tablet GT 01/24/25 14:29 1 gm BID AMY Administration Tamsulosin HCl 0.4 mg 12/26/24 09:00 12/27/24 08:25 Tamsulosin Hcl 0.4 Mg Capsule GT 01/25/25 08:59 Not Given QDAY AMY Plan 69-year-old male with past medical history of 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 with a GI consultation for likely need for endoscopic evaluation. Nephrology consulted for hypoosmolar hyponatremia management. #hypo-osmolar hyponatremia Likely due to SIADH. Patient has a baseline of being alert but non-verbal, not responsive to commands. Given this, patient does not appear to have had a change in mental status. Patient continues to be euvolemic. Patient's serum sodium levels have continued to improve, now 133. Plan -Continue 1 gm NaCl tabs BID -Plan for NaCl tabs once discharged -Continue fluid restriction -ctm sodium correction #GI bleed #Acute blood loss anemia # Thrombophilia #Hx of CVA with residual right-sided hemiparesis #Hx of hypertension #Hx of hyperlipidemia #Hx of dementia (nonverbal) management for remainder of problems through the primary team. Thank you for allowing us to be apart of the care team for Mr. Doan Plan of care discussed with attending, Dr. Francisco Randall MD PGY-1 Attending Provider Attestation/Addendum Patient seen and examined with resident physician Dr. Randall. Note reviewed, agree with findings and recommendations with changes made. Patient with hyponatremia-clinically looks rather euvolemic. Suspect underlying SIADH with urine sodium greater than 100. Hold off on fluids-gave salt tablets. Will monitor serum sodium closely. Sodium seems to be better. Patient had a GI workup done. Discharge planning per primary team. Sodium 133.
[2024-12-28] MEDS: TAMSULOSIN HCL 0.4 MG CAPSULE GT (10:49)
[2024-12-28] MEDS: AMIODARONE HCL 200 MG TABLET GT ×2 (10:50→20:22)
[2024-12-28] MEDS: SODIUM CHLORIDE 1 GM TABLET GT ×2 (10:50→20:22)
[2024-12-28] MEDS: FOLIC ACID 1 MG TABLET GT (10:50)
--- NOTE | 2024-12-28 12:10 | ESDS_ITS ---
<Statement entered by Kayleen Cade MD - 01/08/25 17:55> I reviewed above note and agree with findings and plans. I have also personally examined the patient with medicine team and went over assessment and plan with medical team including quality intern and resident physician. Planned Discharge Date 12/28/24 DS: Providers Provider Date of admission: 12/24/24 03:27 Primary care physician: Physician No Primary/Family Admitting Provider: Abner Guillen DO Attending Provider on Admission: Kayleen Cade MD Consults: 12/24/24 03:09 Consult to Gastroenterology Routine Comment: GI bleed, hx of Denise-Galvez Consulting Provider: Srikanth Crawford 12/25/24 01:50 Referral Nutritional Services Routine Comment: 12/25/24 13:25 Consult to Nephrology Stat Comment: Consulting Provider: Danyell Singh 12/28/24 08:00 Referral Wound Care Routine Comment: Attending Provider on DC: Kayleen Cade MD Discharging Provider: RESIDENT Tootie DS: Diagnosis Problem List Completed Was Problem List Reviewed/Reconciled?: Yes Hospital Course Hospital Course Hospital course: Summary: 69-year-old male with past medical history of 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 He was admitted on 12/24/2024 to r/o GI bleed. EGD (12/25/2024) showed no ulcercation and no evidence of any recent bleed. Colonoscopy (12/27/2024) showed perianal hemor rhoids, diverticulosis in sigmoid and descending colon but no diverticular bleeding. ED Course: Patient presented to the ED normotensive, heart rate 67, respiratory rate 16, afebrile satting 95 on room air. Pertinent lab findings include WBC of 8.7, hemoglobin 10.7 with MCV of 82, platelets of 527. CT abdomen pelvis ordered and pending read. Hospital Course: On admission, he was started on IV protonix 40mg bid and NPO. CTAP(12/24/2024) showed No abnormal contrast extravasation in the gastrointestinal tract, consider follow-up nuclear medicine gastrointestinal bleeding study as clinically warranted, also consider CTA abdomen and pelvis follow-up as clinically warranted Moderate bilateral renal scarring, Normal appendix, No bowel obstruction, Colonic diverticulosis, no diverticulitis, Subcentimeter bladder calculi., Atelectasis versus pneumonia right base with small right pleural effusion. EGD(12/25/2024) showed Gastritis, characterized by erythema, Normal second portion of the duodenum, Denise-galvez tear has completely healed with endoclips in place1 clip has fallen off 2 clips remaining and looks really nice there is no ulceration and no evidence of any recent bleed. Lastly, Co lonoscopy (12/27/2024): Hemorrhoids on perianal exam, Moderate diverticulosis in the sigmoid colon and in the descending colon. There was no evidence of diverticular bleeding. Recommendation: Resume PEG feeding. Patient had an episode of hypoosmolar moderate hyponatremia, isovolemic, likely secondary to SIADH. Patient was fluid restricted and continued to give Sodium tablet 1g BID. #Lower GI bleed likely from perianal hemorrhoids #Acute blood loss anemia #Noromocytic Anemia #Hypoosmolar Moderate Hyponatremia, Isovolemic, likely secondary to SIADH #Thrombocytosis #Hx of CVA with residual right-sided hemiparesis #Hx of hypertension #Hx of hyperlipidemia #Hx of dementia (nonverbal) Instructions: -Please take all medication as prescribed -Please follow up with your primary care provider within one week of discharge -If your symptoms worsen,please seek immediate medical attention and return to your nearest emergency room -If you do not have a primary care provider, you [facility] follow up at [facility] [address], [place] [address], Safe to discharge to SNF Assessment and plan discussed with my attending physician Dr. Cade and Dr. Hernandez (PGY-3) Dr. Mcduffie (PGY-1)- Internal medicine resident Time Spent with Patient Time attestation: Total time spent providing and/or coordinating discharge services: Time spent: Greater than 30 minutes Exam Vital Signs Temp Pulse Resp BP Pulse Ox O2 Del Method O2 Flow Rate 97.4 F 74 17 109/65 96 Room Air 2 12/28/24 12:00 12/28/24 12:00 12/28/24 12:12/28/24 12:12/28/24 12:00 12/28/24 12:00 12/27/24 19:59 Narrative Exam General: Nonverbal, cachectic HEENT: Dry mucous membranes. PERRL, EOMI. Anicteric Lungs: Clear to auscultation bilaterally Cardio: Normal S1/S2, regular rhythm, no murmurs, no JVD Abdomen: Soft, non-tender, no palpable masses, no guarding or rebound, PEG tube noted. Extremities: Symmetrical, RUE contracture, no peripheral edema , non-tender, peripheral pulses presents. Neuro: R side hemiparesis, L side able to move w/o difficulty, nonverbal and not able to follow commands. Discharge Plan Plan Patient Disposition: Xfer Skilled Nsg Fac (SNF) Patient condition on transfer: Stable Care Plan Goals: Instructions: -Please take all medication as prescribed --Please follow up with your primary care provider within one week of discharge -If your symptoms worsen,please seek immediate medical attention and return to your nearest emergency room -If you do not have a primary care provider, [facility], [place] [address], Prescriptions/Referrals Prescriptions/Med Rec: Continued Eliquis 5 mg tablet 5 mg feeding tube BID atorvastatin 40 mg tablet 40 mg feeding tube QPM baclofen 5 mg tablet 2.5 mg feeding tube BID folic acid 1 mg tablet 1 mg feeding tube QDAY docusate sodium [DOK] 100 mg tablet 100 mg PO BID Rx Instructions: give via gtube ipratropium-albuterol 0.5 mg-3 mg(2.5 mg base)/3 mL solution for nebulization 3 ml inhalation Q4H PRN (Reason: shortness of breath or wheezing) tamsulosin 0.4 mg capsule 0.4 mg PO QDAY Patient Comments: TAKE 1 CAPSULE BY gtube acetaminophen 325 mg capsule 325 mg feeding tube Q4H PRN (Reason: pain) amiodarone 200 mg tablet 200 mg feeding tube BID aspirin 81 mg tablet,chewable 81 mg feeding tube QDAY bisacodyl [Dulcolax (bisacodyl)] 10 mg suppository 10 mg ID QDAY PRN (Reason: constipation) lansoprazole 30 mg tablet,disintegrat, delay rel 30 mg feeding tube QDAY magnesium hydroxide [Milk Of Magnesia Concentrated] 30 ml feeding tube .as needed PRN (Reason: constipation) Enema Rectal Enema (Sodium Phosphates) See Rx Instructions .ROUTE .COMPLEX PRN (Reason: constipation) Rx Instructions: PRN; Discontinued pantoprazole [Protonix] 40 mg tablet,delayed release (DR/EC) 40 mg PO BID 30 Days Qty: 60 0RF Rx Instructions: Via G Tube No Action Pro-Stat oral liquid 30 ml feeding tube 1XD Referrals: No Primary/Family,Physician [Primary Care Provider] - Patient/Caregiver Discharge Instructions Meds to Beds: No Education Materials: Colonoscopy, Diagnosing Hemorrhoids Print Language: Uzbek Stand Alone Forms: Sindy Award Info., Patient Portal Info Letter Discharge Order Discharge Orders: Discharge (Routine); Ordered 12/28/24 Ordered By: Mónica Hogue Quality Discharge Quality Measures VTE prophylaxis
--- NOTE | 2024-12-28 16:09 | PC.SS ---
Addendum entered by JELANI Canchola 12/28/24 16:14: Leida patient's daughter, was made aware of d/c back to [facility]. Original Note: Patient to d/c [facility]. [facility] reference number for transport: [id number]. ETA provided from 5:45pm-6:45pm. SEAN Davis is aware and SN[facility] staff was updated.
--- NOTE | 2024-12-28 16:53 | PC.NURSE ---
Report called to [facility] and gave report to staff Lynette regarding pts return back to facility. ETA [phone]
--- NOTE | 2024-12-28 18:24 | PD.IMPROG ---
Documentation for date of: 12/28/24 Subjective Subjective Interval history: Hemoglobin hematocrit 10.3 and 30.7 colonoscopy showed internal hemorrhoids as well as diverticulosis left colon Exam Vital Signs Temp Pulse Resp BP Pulse Ox O2 Del Method O2 Flow Rate 97.1 F 63 17 128/87 H 96 Room Air 2 12/28/24 16:00 12/28/24 16:00 12/28/24 16:00 12/28/24 16:00 12/28/24 16:00 12/28/24 12:00 12/27/24 19:59 Objective Labs 12/28/24 04:24 12/28/24 04:24 Labs: Laboratory Results - last 24 hr 12/28/24 04:24 WBC 6.4 RBC 3.72 L Hgb 10.3 L Hct 30.7 L MCV 83 MCH 27.7 MCHC 33.6 RDW Std Deviation 43.7 Plt Count 472 H D Neut % (Auto) 68 Lymph % (Auto) 17 [place] % (Auto) 11 Eos % (Auto) 4 Baso % (Auto) 1 Neut # (Auto) 4.4 Lymph # (Auto) 1.1 [place] # (Auto) 0.7 Eos # (Auto) 0.2 Baso # (Auto) 0.0 Immature Gran # (Auto) 0.02 H Absolute Nucleated RBC 0.00 Immature Gran % 0 Nucleated RBC % 0 Sodium 133 L Potassium 3.6 Chloride 100 Carbon Dioxide 21.5 Anion Gap 12 BUN 11 Creatinine 0.9 Estim Creat Clear Calc 62.7 eGFR > 60 BUN/Creatinine Ratio 12 Glucose 138 H D Calculated Osmolality 267 L Calcium 8.5 Corrected Calcium 9.0 Phosphorus 3.3 Magnesium 1.4 L Total Bilirubin 0.9 AST 23 ALT 30 Alkaline Phosphatase 88 Total Protein 6.2 Albumin 3.4 Globulin 2.8 Albumin/Globulin Ratio 1.2 Impressions Impression: Diverticulosis sigmoid colon Diverticulosis descending colon Internal hemorrhoids Stable hemoglobin hematocrit Continue current management Assessment & Plan A&P Narrative # Acute GI bleed with melena Plan Continue IV Protonix Serial CBC Correction of the hyponatremia Consent obtained for fiberoptic esophagogastroduodenoscopy with possible therapeutic intervention possible biopsy under intravenous moderate sedation scheduled for tomorrow Patient can have a clear liquid diet up until 10:00 tomorrow morning Other medical problems include Hyponatremia CVA with residual right-sided motor weakness Hypothyroidism Dementia BPH Thank you once again for the opportunity to participate in the care of this patient Time Spent With Patient Time: Total time spent is greater than 50% in coordination of care (as documented) at patient's floor/unit and/or counseling patient:
[2024-12-28] MEDS: ATORVASTATIN CALCIUM 20 MG TABLET 40 MG GT (20:22)
--- NOTE | 2024-12-28 20:45 | PC.NURSE ---
received call from ambulance, transport time is now pushed back to 2200
--- NOTE | 2024-12-28 21:55 | PC.NURSE ---
spoke with ambulance again, transport pushed back again to 2300
== END 2024-12-28 22:59 | disposition skilled nursing facility (03) | DRG 393 ==
LOC: SERX 02:52 → SERHOLD 03:28 → S3NX 05:12
PROVIDERS: Specialist; Student in an Organized Health Care Education/Training Program; Admitting Provider Student in an Organized Health Care Education/Training Program; Emergency Provider Emergency Medicine; Visit Provider Internal Medicine
PROC: (CPT 43239; principal; 2024-12-25 19:30)
PROC: 0DJD8ZZ Inspection of Lower Intestinal Tract, Via Natural or Artificial Opening Endoscopic (ICD-10-PCS; CPT 45378; principal; 2024-12-27 17:15)
DX: K64.8 Other hemorrhoids (principal); K22.6 Gastro-esophageal laceration-hemorrhage syndrome; K29.71 Gastritis, unspecified, with bleeding; K57.31 Diverticulosis of large intestine without perforation or abscess with bleeding; D62 Acute posthemorrhagic anemia; I69.351 Hemiplegia and hemiparesis following cerebral infarction affecting right dominant side; D68.59 Other primary thrombophilia; E22.2 Syndrome of inappropriate secretion of antidiuretic hormone; E78.00 Pure hypercholesterolemia, unspecified; N40.0 Benign prostatic hyperplasia without lower urinary tract symptoms; I10 Essential (primary) hypertension; F03.90 Unspecified dementia, unspecified severity, without behavioral disturbance, psychotic disturbance, mood disturbance, and anxiety; Z93.1 Gastrostomy status; Z66 Do not resuscitate; E03.9 Hypothyroidism, unspecified; I25.10 Atherosclerotic heart disease of native coronary artery without angina pectoris; I48.91 Unspecified atrial fibrillation; D75.839 Thrombocytosis, unspecified; J44.89 Other specified chronic obstructive pulmonary disease; Z87.19 Personal history of other diseases of the digestive system; Z79.01 Long term (current) use of anticoagulants
CPT/HCPCS: 36415; 36600; 71045; 74177; 80053; 81001; 82436; 82728; 82803; 83540; 83550; 83605; 83690; 83735; 84100; 84133; 84295; 84300; 85025; 85046; 85610; 85730; 86850; 86900; 86901; 87081; 93225; 96374; A4649; J1200; J2250; J2470; J3010; J3475; J7030; J7042; J7999; Q9967; A9270